=== PATIENT | female | born 1940 | race Caucasian/White ===

== ENCOUNTER 2018-10-09 12:11 | Outpatient (CLI) | payer MEDICARE ==
--- NOTE | 2018-10-09 14:52 | XRAY Report ---
Reason: SPINAL STENOSIS,LUMBAR REGION WITHOUT NEUROGENIC C Procedure Date: 10/09/2018 Accession Number: [id number] / [id number] Procedure: XR - Chest 2 View X-Ray CPT Code: 49418 FULL RESULT: EXAM: CHEST RADIOGRAPHY EXAM DATE: 10/09/2018 12:17 PM. CLINICAL HISTORY: Dyspnea on exertion. COMPARISON: LUMBAR SPINE 2 VIEW 10/09/2018 12:17 PM. TECHNIQUE: 2 views. FINDINGS: Lungs/Pleura: No focal opacities evident. No pleural effusion. No pneumothorax. Normal volumes. Mediastinum: Heart size is upper limits of normal. Mediastinal and hilar contours are within expected limits. Atherosclerotic deposition is noted of the aorta. Other: There is a 9 x 11 cm upwardly convex soft tissue density of the anterior right diaphragm consistent with focal diaphragmatic eventration versus diaphragmatic hernia, likely containing liver. Mild anterior wedging compression of the T7 vertebral body and likely chronic osteoporotic compression. IMPRESSION: 1. Right anterior hemidiaphragmatic broad-based eventration versus hernia. 2. No infiltrates. RADIA
--- NOTE | 2018-10-09 15:11 | XRAY Report ---
Reason: SPINAL STENOSIS,LUMBAR REGION WITHOUT NEUROGENIC C Procedure Date: 10/09/2018 Accession Number: [id number] / [id number] Procedure: XR - Lumbar Spine 2 View CPT Code: FULL RESULT: EXAM: LUMBOSACRAL SPINE RADIOGRAPHY EXAM DATE: 10/09/2018 12:36 PM. CLINICAL HISTORY: Spinal stenosis, lumbar region without neurogenic C. COMPARISONS: None. TECHNIQUE: 3 views. FINDINGS: Alignment: There is roughly 15 degrees of convex left scoliosis apex at L2-L3. There is 7 mm of grade 1 anterolisthesis of L4 on L5 and 6 mm of anterolisthesis of L5 on S1. There is mild straightening of the normal lumbar lordosis. Bones: Five [id number] lumbar vertebral bodies are present. Large anterior and lateral bridging osteophytes are noted spanning L3-S1. Disks: Degenerative disk space narrowing is noted at L3-L4, L4-L5, L5-S1. Facets: Degenerative facet arthrosis is noted below the L3 level. Sacroiliac Joints: Unremarkable. Soft Tissues: Normal. The visualized bowel gas pattern is normal. IMPRESSION: Multilevel degenerative changes as described. No appreciable acute fracture. RADIA
== END 2018-10-09 12:12 | disposition home or self-care (01) ==
LOC: DI 12:11
PROVIDERS: ATTEND Internal Medicine
DX: R06.00 Dyspnea, unspecified (principal); M51.36 Other intervertebral disc degeneration, lumbar region; M47.9 Spondylosis, unspecified; M51.37 Other intervertebral disc degeneration, lumbosacral region
CPT/HCPCS: 71046; 72100

== ENCOUNTER 2018-11-06 13:28 | Outpatient (CLI) | payer MEDICARE | END 2018-11-06 13:29 | disposition home or self-care (01) | LOC: DI 13:28 | PROVIDERS: ATTEND Internal Medicine | DX: R60.0 Localized edema (principal); I51.7 Cardiomegaly | CPT/HCPCS: 93306 ==

== ENCOUNTER 2019-03-14 09:37 | Emergency (ER) | payer MEDICARE ==
[2019-03-14 10:32] LABS: BASOPHILS % (AUTO) 0.6 %; EOSINOPHILS % (AUTO) 0.2 %; HGB - HEMOGLOBIN 12.1 g/dL (12.0-16.0); LYMPHOCYTES % (AUTO) 15.2 %; MEAN CORPUSCULAR HEMOGLOBIN 30.3 pg (27.0-31.0); MEAN CORPUSCULAR HGB CONC 33.9 g/dL (32.0-36.0); MEAN CORPUSCULAR VOLUME 89.3 fL (81.0-99.0); MEAN PLATELET VOLUME 8.9 fL (7.9-10.8); MONOCYTES # (AUTO) 0.5 10^3/uL (0.0-1.0); NEUTROPHILS # (AUTO) 4.9 10^3/uL (1.5-6.6); NEUTROPHILS % (AUTO) 76.4 %; PLT - PLATELET COUNT 214 10^3/uL (130-450); RED CELL DISTRIBUTION WIDTH 14.2 % (12.0-15.0); WHITE BLOOD COUNT 6.4 x10^3/uL (4.8-10.8)
[2019-03-14 10:36] LABS: ALBUMIN 3.4 g/dL (3.2-5.5); ALBUMIN/GLOBULIN RATIO 1.2 (1.0-2.2); BILIRUBIN,TOTAL 0.7 mg/dL (0.2-1.0); CALCIUM 10.1 mg/dL (8.5-10.3); CREATININE 1.4 mg/dL (0.4-1.0); TOTAL PROTEIN 6.3 g/dL (6.7-8.2)
--- NOTE | 2019-03-14 11:43 | ED Physician Documentation ---
History of Present Illness - Stated complaint Stated Complaint: LUMP ON FACE - Chief complaint Chief Complaint: General - History obtained from History obtained from: Patient - History of Present Illness Pain level max: 0 Pain level now: 0 - Additonal information Additional information: 79-year-old female with multiple medical complaints today. The first is feet swelling for the past several months. She states she is supposed to be on spironolactone, twice a day. Sometimes she takes it once a day, sometimes twice a day. She does not know why she is supposed to be on this. She denies any diarrhea, nausea or vomiting to me contrary to triage note. She also states that she has a growth on her left face that has been there for several weeks. States that it is rapidly grown over the past few weeks. Was supposed to see dermatology, but no appointments available until May. She states she was supposed to go see her doctor today, but he "called out sick". She states that the office staff told her to come to the emergency department instead for her appointment. 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 Derm: Skin cancer surgery - Present Medications Home Medications: Ambulatory Orders Medication Instructions Recorded Confirmed Aspirin [Aspir 81] 81 DAILY 08/28/14 08/28/14 Atorvastatin [Lipitor] 20 DAILY 08/28/14 08/28/14 Losartan [Cozaar] 100 DAILY 08/28/14 08/28/14 Prazosin [Minipress] 1 DAILY 08/28/14 08/28/14 Spironolactone 25 DAILY 08/28/14 08/28/14 [id number] CD [Cardizem Cd] 180 DAILY 08/28/14 08/28/14 Cephalexin [Keflex] 500 mg PO Q6H #28 capsule 03/14/19 Furosemide [Lasix] 20 mg PO DAILY #7 tablet 03/14/19 - Allergies Allergies/Adverse Reactions: Allergies Allergy/AdvReac Type Severity Reaction Status Date / Time lisinopril AdvReac Respiratory Verified 03/14/19 09:51 PD ED PE NORMAL - Vitals Vital signs reviewed: Yes - General General: Alert and oriented X 3, No acute distress - HEENT HEENT: Moist mucous membranes, Other (Small raised area to the left cheek, approximately 1 cm in circumference. There is a dark area at the head of this.) - Neck Neck: Supple, no meningeal sign - Cardiac Cardiac: RRR, Strong equal pulses - Respiratory Respiratory: No respiratory distress, Clear bilaterally - Abdomen Abdomen: Soft, Non tender, Non distended - Derm Derm: Warm and dry - Extremities Extremities: Other (1+ B pitting pedal edema) - Neuro Neuro: Alert and oriented X 3 - Psych Psych: Normal mood, Normal affect Results - Vitals Vitals: Vital Signs - 24 hr 03/14/19 03/14/19 03/14/19 09:45 11:16 11:57 Temperature 36.4 C L Heart Rate 60 61 61 Respiratory 16 18 17 Rate Blood Pressure 105/51 L 107/87 H 122/80 O2 Saturation 95 99 96 Oxygen O2 Source Room air - Labs Labs: Laboratory Tests 03/14/19 03/14/19 10:15 10:15 WBC 6.4 RBC 4.00 L Hgb 12.1 Hct 35.7 L MCV 89.3 MCH 30.3 MCHC 33.9 RDW 14.2 Plt Count 214 MPV 8.9 Neut # (Auto) 4.9 Lymph # (Auto) 1.0 L [place] # (Auto) 0.5 Eos # (Auto) 0.0 Baso # (Auto) 0.0 Absolute Nucleated RBC 0.00 Nucleated RBC % 0.0 Sodium 133 L Potassium 4.3 Chloride 99 L Carbon Dioxide 22 Anion Gap 12.0 BUN 21 H Creatinine 1.4 H Estimated GFR (MDRD) 36 L Glucose 95 Calcium 10.1 Total Bilirubin 0.7 AST 21 ALT 17 Alkaline Phosphatase 75 Total Protein 6.3 L Albumin 3.4 Globulin 2.9 Albumin/Globulin Ratio 1.2 Lipase 35 PD MEDICAL DECISION MAKING - ED course Complexity details: considered differential, d/w patient ED course: Patient with symptoms of unclear etiology. Concern for possible basal cell or squamous cell carcinoma. There may be a secondary infection as well. Will place on Keflex. Will place on a short course of Lasix. We will have her continue her spironolactone at 25 mg twice a day. Discussed the case with [facility] but they do not take her insurance. Recommend she call [facility] for an urgent dermatology referral and follow-up closely with her PCP for further evaluation of her skin. Patient counseled regarding signs and symptoms for which I believe and urgent re-evaluation would be necessary. Patient with good understanding of and agreement to plan and is comfortable going home at this time This document was made in part using voice recognition software. While efforts are made to proofread this document, sound alike and grammatical errors may occur. Departure - Departure Disposition: Home, Self Care Clinical Impression: Peripheral edema Cellulitis Qualifiers: Site of cellulitis: unspecified site Qualified Code(s): L03.90 - Cellulitis, unspecified Condition: Good Instructions: ED Cellulitis Facial Follow-Up: Ari Pappas MD [Provider Admit Priv/Credential] - Within 1 week Prescriptions: Cephalexin [Keflex] 500 mg PO Q6H #28 capsule Furosemide [Lasix] 20 mg PO DAILY #7 tablet Comments: Take all antibiotics until gone. Return if you worsen. You can start the Lasix as well to see if this helps her swelling. [place] I think it is important that you get seen urgently within the next week or two by dermatology as this could be cancerous on your face. You can call [facility] directly to see who they can refer you to. Return if you worsen Discharge Date/Time: 03/14/19 11:58
[2019-03-14 11:58] VITALS: BP 122/80
== END 2019-03-14 11:58 | disposition home or self-care (01) ==
LOC: ED 09:37
DX: R60.0 Localized edema (principal); L03.211 Cellulitis of face; I10 Essential (primary) hypertension
CPT/HCPCS: 36415; 80053; 83690; 85025; 99283; 99284

== ENCOUNTER 2019-09-19 08:00 | Outpatient (CLI) | payer MEDICARE | END 2019-09-19 23:59 | disposition home or self-care (01) | LOC: LAB.R 08:00 | PROVIDERS: ATTEND Physician Assistant | DX: R19.7 Diarrhea, unspecified (principal) | CPT/HCPCS: 81599; 87045; 87046; 87177; 87209; 87329; 87493 ==

== ENCOUNTER 2020-04-25 17:06 | Outpatient (CLI) | payer MEDICARE | END 2020-04-25 17:07 | disposition critical access hospital (66) | LOC: EMS 17:06 | PROVIDERS: ATTEND Surgery | DX: R10.9 Unspecified abdominal pain (principal) | CPT/HCPCS: A0425; A0427 ==

== ENCOUNTER 2020-04-25 18:00 | Emergency (ER) | payer MEDICARE ==
[2020-04-25 18:56] LABS: BASOPHILS % (AUTO) 0.3 %; EOSINOPHILS % (AUTO) 0.1 %; LYMPHOCYTES # (AUTO) 0.6 10^3/uL (1.5-3.5); LYMPHOCYTES % (AUTO) 8.4 %; MEAN CORPUSCULAR HEMOGLOBIN 29.7 pg (27.0-31.0); MEAN CORPUSCULAR HGB CONC 33.9 g/dL (32.0-36.0); MEAN CORPUSCULAR VOLUME 87.9 fL (81.0-99.0); MEAN PLATELET VOLUME 8.8 fL (7.9-10.8); MONOCYTES # (AUTO) 0.3 10^3/uL (0.0-1.0); MONOCYTES % (AUTO) 4.4 %; NEUTROPHILS # (AUTO) 6.1 10^3/uL (1.5-6.6); NEUTROPHILS % (AUTO) 86.5 %; PLT - PLATELET COUNT 210 10^3/uL (130-450); RED BLOOD COUNT 4.37 10^6/uL (4.20-5.40)
[2020-04-25 19:10] LABS: ALBUMIN 3.8 g/dL (3.2-5.5); ALBUMIN/GLOBULIN RATIO 1.3 (1.0-2.2); BILIRUBIN,TOTAL 0.6 mg/dL (0.2-1.0); CALCIUM 9.9 mg/dL (8.5-10.3); CREATININE 1.4 mg/dL (0.4-1.0); TOTAL PROTEIN 6.7 g/dL (6.7-8.2)
[2020-04-25 19:53] LABS: BILIRUBIN,URINE NEGATIVE (NEGATIVE); GLUCOSE, URINE (UA) NEGATIVE (NEGATIVE); KETONES,URINE (UA) NEGATIVE (NEGATIVE); LEUKOCYTE ESTERASE, URINE TRACE (NEGATIVE); NITRITE,URINE NEGATIVE (NEGATIVE); OCCULT BLOOD,URINE TRACE-LYSE (NEGATIVE); PROTEIN,URINE 100 mg/dL (NEGATIVE); UROBILINOGEN,URINE 0.2 (NORMAL) E.U./dL (NORMAL)
[2020-04-25 19:55] LABS: CLARITY,URINE HAZY (CLEAR)
[2020-04-25 20:08] LABS: BACTERIA,URINE Many /HPF (None Seen); RBC,URINE 0-5 /HPF (0-5); SQUAMOUS EPITHELIAL CELL,UR FEW Squamous (<= Few); WBC CLUMPS,URINE PRESENT
--- NOTE | 2020-04-25 21:28 | ED Physician Documentation ---
History of Present Illness - Stated complaint Stated Complaint: R FLANK PX - Chief complaint Chief Complaint: Abd Pain - History obtained from History obtained from: Patient - Additonal information Additional information: Patient is an 80-year-old female brought in with a chief complaint of dysuria and now right-sided flank pain that started about 3 days ago and is progressively been getting worse. She denies fevers denies syncopal episodes denies any lower extremity weakness.Reports that her primary care provider is Dr. Brantley. Review of Systems Constitutional: reports: Reviewed and negative Eyes: reports: Reviewed and negative Ears: reports: Reviewed and negative Nose: reports: Reviewed and negative Throat: reports: Reviewed and negative Cardiac: reports: Reviewed and negative Respiratory: reports: Reviewed and negative GI: reports: Reviewed and negative : reports: Dysuria, Other (Right-sided flank pain) Skin: reports: Reviewed and negative Musculoskeletal: reports: Reviewed and negative Neurologic: reports: Reviewed and negative Psychiatric: reports: Reviewed and negative Endocrine: reports: Reviewed and negative Immunocompromised: reports: Reviewed and negative PD PAST MEDICAL HISTORY - Past Medical History Cardiovascular: Hypertension Respiratory: Shortness of breath Endocrine/Autoimmune: None GI: None : None HEENT: Chronic vision loss Psych: Claustrophobia Musculoskeletal: None Derm: None - Past Surgical History 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 Derm: Skin cancer surgery - Present Medications Home Medications: Ambulatory Orders Medication Instructions Recorded Confirmed Aspirin [Aspir 81] 81 DAILY 08/28/14 08/28/14 Atorvastatin [Lipitor] 20 DAILY 08/28/14 08/28/14 Losartan [Cozaar] 100 DAILY 08/28/14 08/28/14 Prazosin [Minipress] 1 DAILY 08/28/14 08/28/14 Spironolactone 25 DAILY 08/28/14 08/28/14 [id number] CD [Cardizem Cd] 180 DAILY 08/28/14 08/28/14 Cephalexin [Keflex] 500 mg PO Q6H #28 capsule 03/14/19 Furosemide [Lasix] 20 mg PO DAILY #7 tablet 03/14/19 Cephalexin [Keflex] 500 mg PO QID #40 capsule 04/26/20 Hydrocodone/Acetaminophen [Pilgrim 1 each PO Q6HR PRN #10 tablet 04/26/20 5-325 Tablet] Ondansetron Odt [Zofran Odt] 4 mg TL Q6H PRN #10 tablet 04/26/20 - Allergies Allergies/Adverse Reactions: Allergies Allergy/AdvReac Type Severity Reaction Status Date / Time lisinopril AdvReac Respiratory Verified 04/25/20 18:28 PD ED PE NORMAL - Vitals Vital signs reviewed: Yes - General General: Alert and oriented X 3, No acute distress, Well developed/nourished - HEENT HEENT: PERRL, Moist mucous membranes - Neck Neck: Supple, no meningeal sign - Cardiac Cardiac: RRR, No murmur, Strong equal pulses - Respiratory Respiratory: No respiratory distress, Clear bilaterally - Abdomen Abdomen: Normal bowel sounds, Soft, Non tender, Non distended, No organomegaly, Other - Back Back: No spinal TTP, Other (Positive for right-sided CVA tenderness to palpation) - Derm Derm: Normal color, Warm and dry, No rash - Extremities Extremities: No deformity, No tenderness to palpate, Normal ROM s pain, No edema, No calf tenderness / cord - Neuro Neuro: Alert and oriented X 3, 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, No motor deficit, No sensory deficit, Normal speech - Psych Psych: Normal mood, Normal affect Results - Vitals Vitals: Vital Signs - 24 hr 04/25/20 04/25/20 04/25/20 18:24 19:15 21:07 Temperature 97.2 C H Heart Rate 86 78 72 Respiratory 16 18 19 Rate Blood Pressure 163/112 H 159/99 H 155/88 H O2 Saturation 23 L 100 96 04/25/20 04/26/20 04/26/20 22:30 00:30 01:40 Temperature Heart Rate 65 64 69 Respiratory 18 Rate Blood Pressure 145/99 H 151/95 H 178/91 H O2 Saturation 99 99 98 Oxygen O2 Source Room air - Labs Labs: Laboratory Tests 04/25/20 04/25/20 04/25/20 18:50 18:50 19:47 WBC 7.0 RBC 4.37 Hgb 13.0 Hct 38.4 MCV 87.9 MCH 29.7 MCHC 33.9 RDW 14.0 Plt Count 210 MPV 8.8 Neut # (Auto) 6.1 Lymph # (Auto) 0.6 L [place] # (Auto) 0.3 Eos # (Auto) 0.0 Baso # (Auto) 0.0 Absolute Nucleated RBC 0.00 Nucleated RBC % 0.0 Sodium 129 L Potassium 3.9 Chloride 94 L Carbon Dioxide 21 Anion Gap 14.0 H BUN 26 H Creatinine 1.4 H Estimated GFR (MDRD) 36 L Glucose 116 H Calcium 9.9 Total Bilirubin 0.6 AST 21 ALT 16 Alkaline Phosphatase 92 Total Protein 6.7 Albumin 3.8 Globulin 2.9 Albumin/Globulin Ratio 1.3 Lipase 32 Urine Color LIGHT YELLOW Urine Clarity HAZY Urine pH 6.0 Ur Specific [place] 1.010 Urine Protein 100 H Urine Glucose (UA) NEGATIVE Urine Ketones NEGATIVE Urine Occult Blood TRACE-LYSE Urine Nitrite NEGATIVE Urine Bilirubin NEGATIVE Urine Urobilinogen 0.2 (NORMAL) Ur Leukocyte Esterase TRACE H Urine RBC 0-5 Urine WBC 11-25 H Urine WBC Clumps PRESENT Ur Squamous Epith Cells FEW Squamous Urine Bacteria Many H Ur Microscopic Review INDICATED Urine Culture Comments INDICATED PD MEDICAL DECISION MAKING - ED course Complexity details: reviewed results, re-evaluated patient, considered differential, d/w patient ED course: Patient is an 80-year-old female presents with dysuria for 3 days and now right- sided flank pain. Her urinalysis is consistent with a urinary tract infection she was given a dose of IV Rocephin and given a prescription for Keflex 500 mg to be taken for times a day for 10 days. Did get a CT scan of the abdomen and pelvis without contrast which showed cholelithiasis as well as a 3 cm ovoid lesion in the left pelvis nonspecific. I had a lengthy discussion with the patient about this and that she should have close follow-up next week which she has agreed to do. Her CT scan also showed severe spinal stenosis at L3-L4 and L4-L5 for which I encouraged her to follow-up with her primary care provider Dr. Devaughn Brantley on Tuesday which she is agreed to do so. Her pain is controlled here in the emergency department she is received IV antibiotics and a prescription for oral antibiotics and has close follow-up. Departure - Departure Disposition: 01 Home, Self Care Clinical Impression: Pyelonephritis, Hyponatremia, Spinal stenosis at L4-L5 level, Adnexal mass Condition: Stable Instructions: Pyelonephritis Dc Follow-Up: Devaughn Brantley MD [Primary Care Provider] - Prescriptions: Hydrocodone/Acetaminophen [Pil[place]im 5-325 Tablet] 1 each PO Q6HR PRN #10 tablet PRN Reason: Pain Cephalexin [Keflex] 500 mg PO QID #40 capsule Ondansetron Odt [Zofran Odt] 4 mg TL Q6H PRN #10 tablet PRN Reason: Nausea / Vomiting Comments: Take antibiotics as directed. Your tests indicate that she had pyelonephritis which is a kidney infection. You also are being provided a prescription for pain medicine as well as medicine for nausea. Your CAT scan shows that you have gallstones as well as a 3 cm lesion in your left pelvis that you need to have followed up with next week with Dr. Brantley or your primary care provider. Return for worsening pain fevers or any concerns. Discharge Date/Time: 04/26/20 01:53
[2020-04-25] MEDS ORDERED: cefTRIAXone 1 GM VIAL IVP STA (21:29)
[2020-04-25] MEDS ORDERED: SODIUM CHLORIDE 0.9% 1,000 ML IV STA (21:37)
[2020-04-26] MEDS ORDERED: fentaNYL 100 MCG/2 ML VIAL IVP STA (00:23)
[2020-04-26] MEDS ORDERED: HYDROcod/ACETAM 5/325 MG TABLET PO STA (01:35)
[2020-04-26 03:08] VITALS: BP 178/91
--- NOTE | 2020-04-26 10:26 | CT Report ---
PROCEDURE: Abdomen/Pelvis WO INDICATIONS: right flank pain TECHNIQUE: Noncontrast 5 mm thick sections acquired from the diaphragms to the symphysis. 5 mm coronal and sagi ttal reformats were then performed. For radiation dose reduction, the following was used: automated exposure control, adjustment of mA and/or kV according to patient size. COMPARISON: None. FINDINGS: Image quality: Excellent. ABDOMEN: Lung bases: 6 mm noncalcified nodules can be seen involving both lower lobes. Heart size is normal. At least moderate coronary artery calcification can be seen. Solid organs: Liver and spleen are normal in size. The liver demonstrates a lobulated appearance. Po tential gallstones. Gallbladder wall does not appear thickened. The common bile duct measures 11 mm. Pancreas is normal in contours. No adrenal nodules. The left kidney is atrophic. Lobulated kidneys are seen. There is an exophytic simple cyst seen along the posterior aspect of the left kidney superiorly that measures 1.3 cm and 14 Hounsfield units. Peritoneum and bowel: Unenhanced bowel loops demonstrate normal wall thickness and caliber. No free fluid or air. A normal appendix is incidentally noted. Nodes and vessels: No retroperitoneal or mesenteric adenopathy by size criteria. Aorta and inferior vena cava are normal in caliber. Prominent atherosclerotic calcification can be seen, including dens e calcification of the proximal left renal artery. Bilateral common iliac artery stents are seen. Miscellaneous: No ventral hernias. Mild body wall edema is seen. PELVIS: Genitourinary: Bladder wall thickness is normal. This patient is status post hysterectomy. No adnex al masses can be seen. Miscellaneous: No inguinal hernias or adenopathy. A superficial nodule seen involving the right lab ia majora, as on series 3 image 138, measuring 1.5 cm. There is a 3 cm low-density focus seen involvi ng the left adnexal region adjacent to the left iliac bifurcation. Bones: No suspicious bony lesions. No vertebral body compression fractures. Degenerative changes a re seen throughout, which are most prominent involving the lower lumbar spine. Mild to moderate levoc onvex lumbar scoliosis is seen. Mild grade 1 anterolisthesis is seen involving L4-L5 and L5-S1. No as sociated pars defects are seen. IMPRESSION: No findings of stones or hydronephrosis can be seen. Potential gallstones are seen. Mildly dilated common bile duct. Prominent atherosclerotic calcification can be seen, including advanced calcification involving the l eft proximal renal artery. Bilateral common iliac artery stents are seen. The left kidney is atrophic. 1.5 cm hyperdense nodule involving the right labia majora. Please correlate with physical examination findings. 6 mm pulmonary nodules are seen involving both lower lobes. 3 cm low-density ovoid nodule involving the left adnexal region, which is seen immediately adjacent t o the left iliac bifurcation. This may be related to an ovarian nodule. Differential diagnosis includ es an aneurysm, however. If clinically appropriate, please consider a dedicated pelvic ultrasound for further evaluation. Mild anasarca. Incidental note is made of: Lobulated liver, likely reflective of cirrhosis Levoconvex scoliosis Focal lower lumbar spine degenerative change Normal appendix Hysterectomy Note: No significant discrepancy from the preliminary report. Reviewed by: Everardo Szymanski MD on 04/26/2020 9:24 AM LUZ Approved by: Everardo Szymanski MD on 04/26/2020 9:24 AM LUZ Station ID: [id number]
== END 2020-04-26 01:53 | disposition home or self-care (01) ==
LOC: EDUNIT# → ED 18:00
DX: N12 Tubulo-interstitial nephritis, not specified as acute or chronic (principal); E87.1 Hypo-osmolality and hyponatremia; M48.061 Spinal stenosis, lumbar region without neurogenic claudication; M47.816 Spondylosis without myelopathy or radiculopathy, lumbar region; K80.20 Calculus of gallbladder without cholecystitis without obstruction; R19.00 Intra-abdominal and pelvic swelling, mass and lump, unspecified site; I10 Essential (primary) hypertension; Z79.82 Long term (current) use of aspirin
CPT/HCPCS: 36415; 74176; 80053; 81001; 83690; 85025; 87077; 87086; 87181; 96374; 96375; 99284; A9270; 81003

== ENCOUNTER 2020-11-05 | Outpatient (CLI) | payer MEDICARE | END 2020-11-05 08:53 | disposition critical access hospital (66) | CPT/HCPCS: A0425; A0429 ==

== ENCOUNTER 2020-11-05 09:30 | Inpatient (IN) | payer MEDICARE ==
--- NOTE | 2020-11-05 09:52 | ED Physician Documentation ---
PD HPI DYSPNEA - Stated complaint Stated Complaint: SOA - Chief complaint Chief Complaint: Resp - History obtained from History obtained from: Patient, EMS - History of Present Illness Timing - onset: How many months ago (Progressive dyspnea associated with orthopnea and not leg swelling over the last month, worse the last several days to a week. Mild cough. Feels better once up and around in the mornings. Seen yesterday at [facility] Timing - onset during: Exertion, Other (worse lying and with activity) Timing - duration: Months (1) Timing - details: Gradual onset Inciting event(s): No: Out of meds, URI (some cough the past week though) Improved by: Rest, Sitting up Worsened by: Exertion, Laying flat Associated symptoms: Cough, Bilateral edema. No: Fever, Anxiety Similar symptoms before: Has not had sx before Recently seen: Clinic (yesterday at [facility], with labs, and had Rx Lasix and Spironolactone.) Review of Systems Constitutional: denies: Fever, Chills, Myalgias Nose: denies: Rhinorrhea / runny nose, Congestion Throat: denies: Sore throat Cardiac: reports: Pedal edema. denies: Chest pain / pressure, Palpitations, Calf pain Respiratory: reports: Dyspnea (particularly the past month, progressive), Cough (nonproductive, fci), Wheezing. denies: Hemoptysis GI: reports: Diarrhea (loose to watery, 1-3 times daily, without blood. Has had it for months.). denies: Abdominal Pain, Nausea, Vomiting, Constipation, Bloody / black stool Skin: denies: Rash, Lesions Neurologic: reports: Generalized weakness. 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 Derm: Skin cancer surgery - Present Medications Home Medications: Ambulatory Orders Medication Instructions Recorded Confirmed Atorvastatin [Lipitor] 20 DAILY 08/28/14 08/28/14 Spironolactone 50 mg DAILY 08/28/14 08/28/14 Furosemide [Lasix] 20 mg PO DAILY #7 tablet 03/14/19 - Allergies Allergies/Adverse Reactions: Allergies Allergy/AdvReac Type Severity Reaction Status Date / Time lisinopril AdvReac Respiratory Verified 11/05/20 09:47 - Living Situation Living Situation: reports: Alone Living Arrangement: reports: At home - Social History Does the pt smoke?: Yes Smoking Status: Current every day smoker Does the pt drink ETOH?: Yes Does the pt have substance abuse?: No PD ED PE NORMAL - Vitals Vital signs reviewed: Yes (sats 89% on RA) - General General: Alert and oriented X 3, Well developed/nourished - Neck Neck: Supple, no meningeal sign, Other (JVD noted at 45 degrees. ) - Cardiac Cardiac: RRR, No murmur - Respiratory Respiratory: No respiratory distress. No: Clear bilaterally (some wheezing component diffusely. Fine crackles at both lower lung moreno. Decreased left base. ) - Abdomen Abdomen: Soft, Non tender - Female Female : Deferred - Rectal Rectal: Deferred - Back Back: No CVA TTP - Derm Derm: Normal color, Warm and dry - Extremities Extremities: No tenderness to palpate, Normal ROM s pain, No calf tenderness / cord, Other (2+ edema in both lower legs up to the knees. ) - Psych Psych: Normal mood, Normal affect Results - Vitals Vitals: Vital Signs - 24 hr 11/05/20 11/05/20 09:30 10:15 Temperature 36.7 C Heart Rate 87 74 Respiratory 20 18 Rate Blood Pressure 133/102 H O2 Saturation 89 L Oxygen O2 Source Nasal cannula Oxygen Flow Rate 2 - Labs Labs: Laboratory Tests 11/05/20 11/05/20 11/05/20 10:12 10:12 10:12 WBC 7.6 RBC 4.12 L Hgb 12.0 Hct 36.9 L MCV 89.6 MCH 29.1 MCHC 32.5 RDW 14.7 Plt Count 207 MPV 9.8 Neut # (Auto) 6.4 Lymph # (Auto) 0.8 L [place] # (Auto) 0.3 Eos # (Auto) 0.0 Baso # (Auto) 0.0 Absolute Nucleated RBC 0.00 Nucleated RBC % 0.0 Sodium 134 L Potassium 4.1 Chloride 100 L Carbon Dioxide 23 Anion Gap 11.0 BUN 19 Creatinine 1.7 H Estimated GFR (MDRD) 29 L Glucose 115 H Calcium 8.8 Magnesium 1.6 L Total Bilirubin 0.9 AST 20 ALT 18 Alkaline Phosphatase 84 Troponin I High Sens 39.2 H* B-Natriuretic Peptide Total Protein 6.0 L Albumin 3.1 L Globulin 2.9 Albumin/Globulin Ratio 1.1 Lipase 35 TSH 11/05/20 11/05/20 10:12 10:12 WBC RBC Hgb Hct MCV MCH MCHC RDW Plt Count MPV Neut # (Auto) Lymph # (Auto) [place] # (Auto) Eos # (Auto) Baso # (Auto) Absolute Nucleated RBC Nucleated RBC % Sodium Potassium Chloride Carbon Dioxide Anion Gap BUN Creatinine Estimated GFR (MDRD) Glucose Calcium Magnesium Total Bilirubin AST ALT Alkaline Phosphatase Troponin I High Sens B-Natriuretic Peptide 3977 H Total Protein Albumin Globulin Albumin/Globulin Ratio Lipase TSH 4.32 - Rads (name of study) chest xray Radiology: Prelim report reviewed (Left effusion; interstitial edema c/w CHF. ), See rad report PD MEDICAL DECISION MAKING - ED course Complexity details: reviewed results, re-evaluated patient, considered differential (seems likely CHF, but could have some element of COPD with smoking history and some wheezing. Mostly with the edema, crackles, orthopnea. ), d/w patient Departure - Departure Disposition: 66 [facility] DC/Xfer Clinical Impression: Leg edema, Hypoxia Dyspnea Qualifiers: Dyspnea type: orthopnea Qualified Code(s): R06.01 - Orthopnea CHF (congestive heart failure) Qualifiers: Heart failure type: unspecified Heart failure chronicity: acute Qualified Code(s): I50.9 - Heart failure, unspecified Diarrhea Qualifiers: Diarrhea type: unspecified type Qualified Code(s): R19.7 - Diarrhea, unspecified Condition: Stable Record reviewed to determine appropriate education?: Yes
[2020-11-05] MEDS ORDERED: IPRATROPIUM/ALBUTEROL 3 ML NEB INH STA (09:55)
[2020-11-05] MEDS ORDERED: FUROSEMIDE 20 MG/2 ML VIAL IVP STA ×2 (09:55→11:00)
--- OUTSIDE RECORDS SUMMARY | 2020-11-05 10:11 | EXTERNAL MEDICAL SUMMARY RPT | Continuity of Care Document ---
:1940 Demographics Phone Unavailable Preferred Language Unknown Marital Status Unknown Jainism Affiliation Unknown Race Unknown Ethnic Group Unknown Author Organization [place] Address [address] [place] [address] Phone Social History date description facility [phone]
--- NOTE | 2020-11-05 10:13 | XRAY Report ---
PROCEDURE: Chest 1 View X-Ray INDICATIONS: Chest Pain TECHNIQUE: One view of the chest was acquired. COMPARISON: 10/09/2018 FINDINGS: Surgical changes and devices: Surgical clips are noted in bilateral axilla. Lungs and pleura: There is a small to moderate left pleural effusion with left basilar atelectasis. P ulmonary vascular congestion and mild pulmonary edema is seen. No gross pneumothorax. Mediastinum: Tortuous thoracic aorta with aortic arch calcification is seen. Heart size is enlarged. Bones and chest wall: No suspicious bony lesions. Overlying soft tissues appear unremarkable. IMPRESSION: 1. Small to moderate left-sided pleural effusion with left basilar atelectasis. Pulmonary edema and p ulmonary vascular congestion. No gross pneumothorax. 2. Cardiomegaly. Reviewed by: Sam Downey MD on 11/05/2020 10:12 AM PDT Approved by: Sam Downey MD on 11/05/2020 10:12 AM PDT Station ID: [id number]
[2020-11-05 10:25] LABS: BASOPHILS % (AUTO) 0.4 %; EOSINOPHILS % (AUTO) 0.1 %; HCT - HEMATOCRIT 36.9 % (37.0-47.0); LYMPHOCYTES # (AUTO) 0.8 10^3/uL (1.5-3.5); LYMPHOCYTES % (AUTO) 10.4 %; MEAN CORPUSCULAR HEMOGLOBIN 29.1 pg (27.0-31.0); MEAN CORPUSCULAR HGB CONC 32.5 g/dL (32.0-36.0); MEAN CORPUSCULAR VOLUME 89.6 fL (81.0-99.0); MEAN PLATELET VOLUME 9.8 fL (7.9-10.8); MONOCYTES # (AUTO) 0.3 10^3/uL (0.0-1.0); MONOCYTES % (AUTO) 4.5 %; NEUTROPHILS # (AUTO) 6.4 10^3/uL (1.5-6.6); NEUTROPHILS % (AUTO) 84.3 %; PLT - PLATELET COUNT 207 10^3/uL (130-450); RED BLOOD COUNT 4.12 10^6/uL (4.20-5.40); RED CELL DISTRIBUTION WIDTH 14.7 % (12.0-15.0); WHITE BLOOD COUNT 7.6 x10^3/uL (4.8-10.8)
[2020-11-05 10:36] LABS: ALBUMIN 3.1 g/dL (3.2-5.5); ALBUMIN/GLOBULIN RATIO 1.1 (1.0-2.2); BILIRUBIN,TOTAL 0.9 mg/dL (0.2-1.0); CALCIUM 8.8 mg/dL (8.5-10.3); CREATININE 1.7 mg/dL (0.4-1.0); MAGNESIUM 1.6 mg/dL (1.7-2.8); POTASSIUM 4.1 mmol/L (3.5-5.0)
--- NOTE | 2020-11-05 11:05 | HISTORY & PHYSICAL EXAMINATION ---
Chief Complaint - Chief Complaint Chief Complaint: dyspnea on exertion History of Present Illness - Admitted From Admitted From:: [facility] ED - History Obtained From Records Reviewed: yes History obtained from: patient - History of Present Illness HPI Comment/Other: Patient is an 80-year-old female with medical history significant for hyperten anibal, macular degeneration and an active tobacco user (cigarettes) Scented to the ED via EMS with complaint of dyspnea which is worse on exertion and significant lower extremity edema. Her symptoms have been going on for the past 3 to 4 weeks but got significantly worse over the past week. Yesterday she went to the [facility] where lab work was done. She was prescribed Lasix and spironolactone but has not taken any of it since prescription. Her son-in-law checked on her this morning and called EMS when they noticed she was significantly dyspneic. In the ED she was found to have a 2-3+ lower extremity edema c. her BNP was 3900 and troponin of 39. She has been experiencing a whitish productive cough. She denied any previous occurrence of similar symptoms. She denied any history of cardiac disease. She denies chest pain, abdominal pain, nausea, vomiting, fever or chills. She lives alone but her family lives down the same street from her. She gets around her house using a walker however this has been difficult to do lately. She is fairly independent of activities of daily living. As a result of her clinical presentation and lab findings, she was presented for admission for further treatment. 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 Daughter has migraines Living arrangement: At home Living Situation: Alone Social History Notes: She has been smoking at least 1 pack/day for 61 years. She rarely drinks alcohol. No recreational substance use. - POLST Patient has POLST: No POLST Status: Full Code Meds/Allgy - Home Medications Home Medications: Ambulatory Orders Medication Instructions Recorded Confirmed Atorvastatin [Lipitor] 20 DAILY 08/28/14 08/28/14 Spironolactone 50 mg DAILY 08/28/14 08/28/14 Furosemide [Lasix] 20 mg PO DAILY #7 tablet 03/14/19 Albuterol Sulfate [Proair 1 - 2 puffs PO PRN PRN 11/05/20 Respiclick] Losartan Potassium [Cozaar] 100 mg PO DAILY 11/05/20 - Allergies Allergies/Adverse Reactions: Allergies Allergy/AdvReac Type Severity Reaction Status Date / Time lisinopril AdvReac Respiratory Verified 11/05/20 09:47 Review of Systems - Constitutional Constitutional: reports: Chills. denies: Fatigue, Fever, Weakness - Eyes Eyes: denies: Pain - Ears, Nose & Throat Ears, Nose & Throat: denies: Ear pain, Vertigo, Sore throat - Cardiovascular Cariovascular: reports: Edema, Exertional dyspnea. denies: Irregular heart rate, Palpitations, Chest pain, Lightheadedness, Syncope - Respiratory Respiratory: reports: Cough, Sputum production (white), SOB with exertion. denies: Wheezing, Pleuritic pain - Gastrointestinal Gastrointestinal: denies: Abdominal pain, Abdominal distention, Constipation, Diarrhea, Nausea, Vomiting, Reflux/heartburn - Genitourinary Genitourinary: denies: Dysuria, Frequency, Urgency, Hematuria - Musculoskeletal Musculoskeletal: denies: Muscle pain, Back pain, Muscle aches, Gout, Joint pain - Integumentary Integumentary: denies: Rash, Pruritis, Lesions, Dryness - Neurological Neurological: denies: General weakness, Focal weakness, Headache, Dizziness - Psychiatric Psychiatric: denies: Depression, Anxiety - Endocrine Endocrine: denies: Polyuria, Polydypsia - Hematologic/Lymphatic Hematologic/Lymphatic: denies: Anemia, Bruising, Petechiae Prior Level of Functionality: Patient is normally independent of activities of daily living Exam - Vital Signs Vital Signs: Vital Signs x48h Temp Pulse Resp BP Pulse Ox 11/05/20 10:15 74 18 11/05/20 09:30 36.7 C 87 20 133/102 H 89 L - Physical Exam General Appearance: positive: Alert, Mild distress, Other (Frail) Eyes Bilateral: positive: PERRL, EOMI ENT: positive: No signs of dehydration Neck: positive: No JVD, Trachea midline Respiratory: positive: Chest non-tender, Other (Mild respiratory distress). negative: Wheezes, Rales, Rhonchi Cardiovascular: positive: Regular rate & rhythm, No murmur Abdomen: positive: Non-tender, No organomegaly, Nml bowel sounds, No distention. negative: Guarding, Rebound Back: positive: Nml inspection Skin: positive: Color nml, No rash, Warm, Dry Extremities: positive: Pedal edema (3+) Neurologic/Psychiatric: positive: Oriented x3, Mood/affect nml Conclusion/Plan - Problem List (1) CHF exacerbation Conclusion/Plan: Patient's BMP was 3900. Patient was given Lasix 20 mg IV x1 in the ED. Repeat Lasix 20 mg IV x1 again. Then continue Lasix 20 mg IV twice daily. We will also resume patient's spironolactone. Daily weights, strict I's and O's, fluid restriction to 2 L total, sodium restriction. 2D echocardiogram in process. Patient had a previous 2D echocardiogram on 11/06/18 which showed left ventricular size was normal, mild concentric left ventricular hypertrophy. Overall left ventricular systolic function was normal with an ejection fraction of 55 to 60%. Diastolic function was indeterminate. There was no regional wall motion abnormality. There was no evidence of aortic stenosis. (2) Pleural effusion Conclusion/Plan: [id number] left-sided pleural effusion noted on x-ray. This is likely due to patient's CHF. Actively diuresing the patient. We will contact radiology about possible thoracentesis for diagnostic and therapeutic purposes. (3) Elevated troponin Conclusion/Plan: Likely secondary to CHF exacerbation. Patient is not experiencing any chest pain. However we will trend troponin times tomorrow. (4) Acute renal failure Conclusion/Plan: [place] secondary to CHF exacerbation. Patient's previous creatinine levels have been 1.4. Creatinine today is 1.7. Estimated GFR is 29. Anticipating improvement in renal function with diuresis and improvement in cardiac function. (5) Tobacco abuse Conclusion/Plan: Patient smokes an average of 1 pack/day. She has been smoking for 61 years. Nicotine patch 14 g transdermal daily has been ordered. (6) Hypertension Conclusion/Plan: Patient used to be on losartan but states that this was discontinued. Reason is unknown. Patient would likely be placed on metoprolol prior to discharge considering CHF. Currently on Lasix and spironolactone. - Lab Results Fish Bones: 11/05/20 10:12 11/05/20 10:12 Core Measures - Anticipated LOS I expect patient to be DC'd or transferred within 96 hours.: Yes - DVT/VTE - Prophylaxis VTE/DVT Device ordered at admit?: Yes VTE/DVT Prophylaxis med ordered at admit?: Yes
[2020-11-05 11:10] LABS: B. PARAPERTUSSIS- RESP PCR PAN NOT DETECTED; B. PERTUSSIS- RESP PCR PANEL NOT DETECTED; C. PNEUMONIAE- RESP PCR PANEL NOT DETECTED; CORONAVIRUS 229E-RESP PCR NOT DETECTED; CORONAVIRUS HKU1-RESP PCR NOT DETECTED; CORONAVIRUS NL63-RESP PCR NOT DETECTED; CORONAVIRUS OC43-RESP PCR NOT DETECTED; HUMAN METAPNEUMOVIRUS NOT DETECTED; INFLUENZA A- RESP PCR PANEL NOT DETECTED; INFLUENZA B - RESP PCR PANEL NOT DETECTED; M. PNEUMONIAE- RESP PCR PANEL NOT DETECTED; PARAINFLUENZA VIRUS 1 NOT DETECTED; PARAINFLUENZA VIRUS 2 NOT DETECTED; PARAINFLUENZA VIRUS 3 NOT DETECTED; PARAINFLUENZA VIRUS 4 NOT DETECTED; RHINOVIRUS/ENTEROVIRUS NOT DETECTED; RSV- RESP PCR PANEL NOT DETECTED; SARS-CoV-2 -RESP PCR PANEL NOT DETECTED
--- OUTSIDE RECORDS SUMMARY | 2020-11-05 11:23 | EXTERNAL MEDICAL SUMMARY RPT | Continuity of Care Document ---
:1940 Demographics Phone Unavailable Preferred Language Unknown Marital Status Unknown Oriental Orthodox Affiliation Unknown Race Unknown Ethnic Group Unknown Author Organization [place] Address [address] [phone] Phone Social History date description facility [phone]
[2020-11-05] MEDS: NICOTINE 14 MG PATCH TOP SCH (14:14)
[2020-11-05] MEDS: NYSTATIN POWDER 15 GM TOP SCH ×2 (14:14→21:07)
--- NOTE | 2020-11-05 14:52 | PHARMACY PROGRESS NOTE ---
- Best Possible Medication History Admit Date and Time: 11/05/20 1119 Processed by: Nursing Medication History completed: Yes Patient Interview: Completed Secondary Source(s): Physician records, Pharmacy records, Insurance records (MED REC COMPLETED BY NURSING ) As the person ultimately responsible for medication therapy, providers are able to order a medication from an existing home medication list in [facility] via the "Reconcile Routine" prior to Confirmation of that medication by sales support technician. Such practice is discouraged except when the physician, in their clinical judgment, deems that a medical need exists for a medication without regard to previous use.
[2020-11-05] MEDS: ACETAMINOPHEN 325 MG TABLET PO PRN (19:19)
[2020-11-05] MEDS: SODIUM CHLORIDE FLUSH 0.9% 10 ML SYRINGE IVP SCH (19:52)
[2020-11-05] MEDS: guaiFENesin/CODEINE 5 ML UDC PO PRN (22:34)
[2020-11-06] MEDS: ACETAMINOPHEN 325 MG TABLET PO PRN ×2 (00:03→15:33)
[2020-11-06] MEDS: SODIUM CHLORIDE FLUSH 0.9% 10 ML SYRINGE IVP SCH ×4 (00:05→23:49)
[2020-11-06 05:18] LABS: BASOPHILS % (AUTO) 0.4 %; HCT - HEMATOCRIT 36.8 % (37.0-47.0); HGB - HEMOGLOBIN 11.9 g/dL (12.0-16.0); LYMPHOCYTES % (AUTO) 11.7 %; MEAN CORPUSCULAR HGB CONC 32.3 g/dL (32.0-36.0); MEAN CORPUSCULAR VOLUME 89.8 fL (81.0-99.0); MEAN PLATELET VOLUME 9.9 fL (7.9-10.8); MONOCYTES # (AUTO) 0.5 10^3/uL (0.0-1.0); MONOCYTES % (AUTO) 5.5 %; NEUTROPHILS # (AUTO) 7.3 10^3/uL (1.5-6.6); NEUTROPHILS % (AUTO) 82.2 %; PLT - PLATELET COUNT 188 10^3/uL (130-450); RED CELL DISTRIBUTION WIDTH 14.6 % (12.0-15.0); WHITE BLOOD COUNT 8.9 x10^3/uL (4.8-10.8)
[2020-11-06 05:21] LABS: CALCIUM 8.3 mg/dL (8.5-10.3); CREATININE 1.7 mg/dL (0.4-1.0); INR 1.1 (0.8-1.2); POTASSIUM 3.5 mmol/L (3.5-5.0); PT - PROTHROMBIN TIME 12.3 secs (9.9-12.6)
[2020-11-06] MEDS: guaiFENesin/CODEINE 5 ML UDC PO PRN (05:30)
[2020-11-06] MEDS: FUROSEMIDE 20 MG/2 ML VIAL IVP SCH ×2 (05:31→13:55)
[2020-11-06] MEDS: SODIUM CHLORIDE FLUSH 0.9% 10 ML SYRINGE IVP PRN (05:45)
--- NOTE | 2020-11-06 07:35 | PROVIDER PROGRESS NOTE ---
Assessment/Plan - Problem List (1) CHF exacerbation Assessment/Plan: There was significant improvement in patient's lower extremity edema. Continue Lasix 20 mg IV twice daily. Spironolactone 50 mg p.o. daily. 2D echocardiogram done yesterday 11/05/20 showed normal left ventricular size. Moderate concentric left ventricular hypertrophy. Overall left ventricular systolic function is mild to moderately globally impaired with an ejection fraction of 40 to 45%. Impaired relaxation consistent with grade 1 diastolic dysfunction. No regional wall motion abnormality was seen. Left ventricular systolic function was reduced compared to previous echo. There was mild right ventricular enlargement. There was severe increase in left atrial volume index. No evidence of aortic stenosis. There was a large sized left pleural effusion noted. (2) Pleural effusion Assessment/Plan: Large left pleural effusion. Patient's INR this morning was 1.1. Thoracentesis ordered for this morning for therapeutic and diagnostic purposes. We will await results. (3) Elevated troponin Assessment/Plan: Troponin trend was 39.2 > 49.4 > 69.7. This is likely related to CHF exacerbation. Patient does not have any chest pain. We will continue to monitor (4) Acute renal failure Assessment/Plan: Likely secondary to CHF exacerbation. No change from yesterday Patient's previous creatinine levels have been 1.4. Creatinine today is 1.7. Estimated GFR is 29. Anticipating improvement in renal function with diuresis and improvement in cardiac function. (5) Tobacco abuse Assessment/Plan: Patient smokes an average of 1 pack/day. She has been smoking for 61 years. Nicotine patch 14 g transdermal daily has been ordered. (6) Hypertension Assessment/Plan: Patient used to be on losartan but states that this was discontinued. Reason is unknown. Patient would likely be placed on metoprolol prior to discharge considering CHF. Currently on Lasix and spironolactone. - Current Meds Current Meds: Current Medications Generic Name Dose Route Start Last Admin Trade Name Freq PRN Reason Stop Dose Admin Acetaminophen 650 mg 11/05/20 10:49 11/06/20 00:03 Acetaminophen 325 Mg Tablet PO 650 mg Q4HR PRN Administration Pain 1 to 4 Furosemide 20 mg 11/06/20 06:00 11/06/20 05:31 Furosemide 20 Mg/2 Ml Vial IVP 20 mg BIDDIURETIC KEESHA Administration Guaifenesin/Codeine Phosphate 5 ml 11/05/20 22:20 04/08/21 05:30 Guaifenesin/Codeine 5 Ml Udc PO 5 ml Q6HR PRN Administration Cough Nicotine 1 patch 11/05/20 13:00 11/05/20 14:14 Nicotine 14 Mg Patch TOP 1 patch DAILY KEESHA Administration Nystatin 1 applic 11/05/20 13:00 11/05/20 21:07 Nystatin Powder 15 Gm TOP 1 applic BID KEESHA Administration Sodium Chloride 10 ml 11/05/20 10:49 11/06/20 05:45 Sodium Chloride Flush 0.9% 10 Ml Syringe IVP 10 ml PRN PRN Administration NEEDED PER PROVIDER ORDERS Sodium Chloride 10 ml 11/05/20 17:00 11/06/20 00:05 Sodium Chloride Flush 0.9% 10 Ml Syringe IVP 10 ml 0100,0900,1700 KEESHA Administration - Lab Result Fish Bone Diagrams: 11/06/20 04:45 11/06/20 04:45 - Additional Planning My Orders: My Active Orders 11/05/20 10:49 Activity Orders [RC] Q2HR IO [RC] IOSHIFT Initiate Bowel Care Protocol [RC] .protocol Initiate Line Care Protocol [RC] QSHIFT Initiate Personal Care Protoco [RC] .protocol Telemetry- [RC] Q4HR Vital Signs [RC] Q4H Acetaminophen [Tylenol] 650 mg PO Q4HR PRN Sodium Chloride Flush 0.9% [Normal Saline Flush 0.9%] 10 ml IVP PRN PRN Code Status [OTHERS] Routine Condition of Patient [OTHERS] Routine DVT Prophylaxis [OTHERS] Routine 11/05/20 10:57 SCDs [RC] QSHIFT 11/05/20 10:58 Daily Weight [RC] 0600 11/05/20 11:01 Echo [Echo Transthoracic Complete] [ECHO] Routine 11/05/20 Lunch Cardiac Diet [DIET] 11/05/20 13:00 Nicotine 14 mg Patch [Nicoderm] 1 patch TOP DAILY Nystatin [Nystop] 1 applic TOP BID 11/05/20 13:01 Fluid Restriction [RC] ONCE 11/05/20 17:00 Sodium Chloride Flush 0.9% [Normal Saline Flush 0.9%] 10 ml IVP 0100,0900,1700 11/06/20 05:00 CELL COUNT, BF [BF] DAILYLAB 11/06/20 05:24 Oxygen [Oxygen Therapy] [RC] .PRN 11/06/20 06:00 FUROSEMIDE INJ 20mg VIAL [LASIX INJ 20mg VIAL] 20 mg IVP BIDDIURETIC 11/06/20 08:00 Thoracentesis Puncture [US] Routine 11/06/20 09:00 CUL,BODY FLUID(AEROBIC) [RM] DAILY MISC TEST QUEST REFRIG [REFLAB] Timed MISC TEST QUEST REFRIG [REFLAB] Timed MISC TEST QUEST REFRIG [REFLAB] Timed MISC TEST QUEST REFRIG [REFLAB] Timed Miscellaneous Laboratory Order [LAB] ONCE Heparin [Heparin Sodium (Porcine)] 5,000 unit SUBQ BID Spironolactone [Aldactone] 50 mg PO DAILY 11/07/20 05:00 BMP - BASIC METABOLIC PANEL [CHEM] DAILYLAB CBC - COMP BLD CT W/AUTO DIFF [HEME] DAILYLAB 11/08/20 05:00 BMP - BASIC METABOLIC PANEL [CHEM] DAILYLAB CBC - COMP BLD CT W/AUTO DIFF [HEME] DAILYLAB 11/09/20 05:00 BMP - BASIC METABOLIC PANEL [CHEM] DAILYLAB CBC - COMP BLD CT W/AUTO DIFF [HEME] DAILYLAB 11/10/20 05:00 BMP - BASIC METABOLIC PANEL [CHEM] DAILYLAB CBC - COMP BLD CT W/AUTO DIFF [HEME] DAILYLAB Subjective - Subjective Patient Reports: Other (Resting comfortably in bed. She reports significant improvement in her breathing. However her cough persist. Her lower extremity edema has significantly decreased. She denies any other complaints.) Objective Vital Signs: Vital Signs - 24 hr 11/05/20 11/05/20 11/05/20 09:30 10:15 11:15 Temperature 36.7 C Heart Rate 87 74 78 Heart Rate [ Brachial] Respiratory 20 18 18 Rate Blood Pressure 133/102 H 140/100 H Blood Pressure [Left Brachial artery] O2 Saturation 89 L 92 11/05/20 11/05/20 11/05/20 11:45 13:18 15:30 Temperature 36.6 C 36.7 C Heart Rate Heart Rate [ 73 91 Brachial] Respiratory 20 24 24 Rate Blood Pressure Blood Pressure 130/59 L 137/92 H [Left Brachial artery] O2 Saturation 92 93 91 L 11/05/20 11/05/20 11/06/20 16:31 20:00 00:00 Temperature 36.8 C 36.6 C 36.4 C L Heart Rate Heart Rate [ 87 Brachial] Respiratory 24 22 Rate Blood Pressure Blood Pressure 136/98 H 137/92 H [Left Brachial artery] O2 Saturation 96 93 97 11/06/20 03:45 Temperature 36.5 C Heart Rate Heart Rate [ 71 Brachial] Respiratory 21 Rate Blood Pressure Blood Pressure 113/72 [Left Brachial artery] O2 Saturation 93 Oxygen O2 Source Nasal cannula Oxygen Flow Rate 2 I&O (Last 24 Hrs): Intake and Output Totals x24h 11/04/20 11/05/20 11/06/20 23:59 23:59 23:59 Intake Total 840 Output Total 1250 400 Balance -410 -400 General: Alert, Oriented x3, Cooperative, Mild distress HEENT: PERRLA, EOMI Neck: Supple, No JVD Neuro: Alert, Non Focal, Oriented Times 3 Cardiovascular: Regular rate, No murmurs Respiratory: Chest non-tender, Other (Mild respiratory distress. Coarse breath sounds No wheezing rhonchi or crackles) Abdomen: Normal bowel sounds, Soft, No tenderness, No masses Extremities: Other (+1 lower extremity edema) - Results Results: Laboratory Results WBC 8.9 x10^3/uL (4.8-10.8) 11/06/20 04:45 RBC 4.10 10^6/uL (4.20-5.40) L 11/06/20 04:45 Hgb 11.9 g/dL (12.0-16.0) L 11/06/20 04:45 Hct 36.8 % (37.0-47.0) L 11/06/20 04:45 MCV 89.8 fL (81.0-99.0) 11/06/20 04:45 MCH 29.0 pg (27.0-31.0) 11/06/20 04:45 MCHC 32.3 g/dL (32.0-36.0) 11/06/20 04:45 RDW 14.6 % (12.0-15.0) 11/06/20 04:45 Plt Count 188 10^3/uL (130-450) 11/06/20 04:45 MPV 9.9 fL (7.9-10.8) 11/06/20 04:45 Neut # (Auto) 7.3 10^3/uL (1.5-6.6) H 11/06/20 04:45 Lymph # (Auto) 1.0 10^3/uL (1.5-3.5) L 11/06/20 04:45 [place] # (Auto) 0.5 10^3/uL (0.0-1.0) 11/06/20 04:45 Eos # (Auto) 0.0 10^3/uL (0.0-0.7) 11/06/20 04:45 Baso # (Auto) 0.0 10^3/uL (0.0-0.1) 11/06/20 04:45 Absolute Nucleated RBC 0.00 x10^3/uL 11/06/20 04:45 Nucleated RBC % 0.0 /100WBC 11/06/20 04:45 PT 12.3 secs (9.9-12.6) 11/06/20 04:45 INR 1.1 (0.8-1.2) 11/06/20 04:45 Sodium 134 mmol/L (135-145) L 11/06/20 04:45 Potassium 3.5 mmol/L (3.5-5.0) 11/06/20 04:45 Chloride 98 mmol/L (101-111) L 11/06/20 04:45 Carbon Dioxide 26 mmol/L (21-32) 11/06/20 04:45 Anion Gap 10.0 (6-13) 11/06/20 04:45 BUN 23 mg/dL (6-20) H 11/06/20 04:45 Creatinine 1.7 mg/dL (0.4-1.0) H 11/06/20 04:45 Estimated GFR (MDRD) 29 (>89) L 11/06/20 04:45 Glucose 100 mg/dL (70-100) 11/06/20 04:45 Calcium 8.3 mg/dL (8.5-10.3) L 11/06/20 04:45 Magnesium 1.6 mg/dL (1.7-2.8) L 11/05/20 10:12 Total Bilirubin 0.9 mg/dL (0.2-1.0) 11/05/20 10:12 AST 20 IU/L (10-42) 11/05/20 10:12 ALT 18 IU/L (10-60) 11/05/20 10:12 Alkaline Phosphatase 84 IU/L (42-121) 11/05/20 10:12 Troponin I High Sens 69.7 ng/L (2.3-14.8) H* 11/05/20 21:49 B-Natriuretic Peptide 3977 pg/mL (5-100) H 11/05/20 10:12 Total Protein 6.0 g/dL (6.7-8.2) L 11/05/20 10:12 Albumin 3.1 g/dL (3.2-5.5) L 11/05/20 10:12 Globulin 2.9 g/dL (2.1-4.2) 11/05/20 10:12 Albumin/Globulin Ratio 1.1 (1.0-2.2) 11/05/20 10:12 Lipase 35 U/L (22-51) 11/05/20 10:12 TSH 4.32 uIU/mL (0.34-5.60) 11/05/20 10:12 Nasal Adenovirus (PCR) NOT DETECTED 11/05/20 10:07 Nasal B. parapertussis DNA (PCR) NOT DETECTED 11/05/20 10:07 Nasal Coronavir 229E PCR NOT DETECTED 11/05/20 10:07 Nasal Coronavir HKU1 PCR NOT DETECTED 11/05/20 10:07 Nasal Coronavir NL63 PCR NOT DETECTED 11/05/20 10:07 Nasal Coronavir OC43 PCR NOT DETECTED 11/05/20 10:07 Nasal Enterovir/Rhinovir PCR NOT DETECTED 11/05/20 10:07 Nasal Influenza B PCR NOT DETECTED 11/05/20 10:07 Nasal Influenza A PCR NOT DETECTED 11/05/20 10:07 Nasal Parainfluen 1 PCR NOT DETECTED 11/05/20 10:07 Nasal Parainfluen 2 PCR NOT DETECTED 11/05/20 10:07 Nasal Parainfluen 3 PCR NOT DETECTED 11/05/20 10:07 Nasal Parainfluen 4 PCR NOT DETECTED 11/05/20 10:07 Nasal RSV (PCR) NOT DETECTED 11/05/20 10:07 Nasal B.pertussis DNA PCR NOT DETECTED 11/05/20 10:07 Nasal C.pneumoniae (PCR) NOT DETECTED 04/07/21 10:07 Roberto Human Metapneumo PCR NOT DETECTED 11/05/20 10:07 Nasal M.pneumoniae (PCR) NOT DETECTED 11/05/20 10:07 Nasal SARS-CoV-2 (PCR) NOT DETECTED 11/05/20 10:07 - Procedures Procedures: Procedures CATARAC PHACOEMULS/ASPIR (11/28/14) INSERT LENS AT CATAR EXT (11/28/14) ABX Reporting Has patient been on IV antibiotics over the past 48 hours?: No
[2020-11-06] MEDS: HEPARIN 5,000 UNIT/ML VIAL SUBQ SCH ×2 (07:56→20:30)
[2020-11-06] MEDS: NICOTINE 14 MG PATCH TOP SCH (08:30)
[2020-11-06] MEDS: NYSTATIN POWDER 15 GM TOP SCH ×2 (08:31→20:31)
[2020-11-06] MEDS ORDERED: ENOXAPARIN 40 MG/0.4 ML SYRINGE SUBQ SCH (09:00)
[2020-11-06] MEDS ORDERED: SPIRONOLACTONE 25 MG TABLET PO SCH (09:00)
[2020-11-06 12:27] LABS: BF CLARITY CLEAR; BF COLOR YELLOW; BF SOURCE PLEURAL; CC,BF RBC < 3000 /mm^3; CC,BF WBC 169 /mm^3
--- NOTE | 2020-11-06 12:32 | XRAY Report ---
PROCEDURE: Post Thoracentesis 1V CXR INDICATIONS: DYSPNEA/ PLUERAL EFFUSION S/P THORACENTESIS TECHNIQUE: One view of the chest was acquired. COMPARISON: Chest radiograph dated 11/05/2020 FINDINGS: Surgical changes and devices: Multiple surgical clips noted in the bilateral axilla.. Lungs and pleura: Persistent right pleural effusion, stable. Previously seen left moderate pleural ef fusion has decreased significantly in size. There is a small residual left pleural effusion seen. Dif fuse interstitial prominence as before. Patchy bibasilar opacities. Curvilinear lucency noted on the initial post thoracentesis image with suggestion of lung markings extending peripherally from this faby cency. Repeat imaging demonstrates persistent of this curvilinear lucent line but it appears more pro nounced with additional similar appearing lucency noted on the right. There is lung markings extendin g beyond/peripheral to these lucencies towards the pleural surface. This is likely related to skinfol d artifact. Otherwise, no pneumothorax visualized. Mediastinum: Mediastinal contours appear stable. Heart size is enlarged. Bones and chest wall: No suspicious bony lesions. Overlying soft tissues appear unremarkable. IMPRESSION: 1. Status post left thoracentesis with significant interval decrease in size of now small left pleura l effusion. Presumed skinfold artifact as detailed above. Otherwise, no substantial pneumothorax visu alized. 2. Cardiomegaly with stable appearance of diffuse interstitial prominence. This may be related to con current mild pulmonary edema/CHF versus infectious/inflammatory process. No focal consolidations. Reviewed by: Chris Ching MD on 11/06/2020 12:31 PM PDT Approved by: Chris Ching MD on 11/06/2020 12:31 PM PDT Station ID: [id number]
[2020-11-06 13:24] LABS: LYMPHOCYTES %,BODY FLUID 22 %; MACROPHAGES %,BODY FLUID 31 %; NEUTROPHILS %, BF 48 %
--- NOTE | 2020-11-06 14:53 | Ultrasound Report ---
PROCEDURE: Thoracentesis Puncture INDICATIONS: large pleural effusion. Therapeutic and diagnostic TECHNIQUE: The indications, alternatives, benefits, risks, and complications of the procedure were explained to the patient. Written informed consent was obtained and placed in the chart. The chest was examined sonographically, and an appropriate site was chosen for thoracentesis. The skin was prepared and millie ped in the usual sterile fashion, and 1% lidocaine was infiltrated from the skin down through the ple ural surface. A 19-gauge catheter-covered needle was then introduced into the pleural space, the cat heter was advanced and the needle was withdrawn, and thereafter pleural fluid was aspirated. The cat heter was then removed and a dressing was applied. COMPARISON: None. FINDINGS: Access site: Left hemithorax. Needle: One-Step centesis catheter with introducer needle. Fluid volume and description: 970 mL of straw-colored pleural effusion Fluid sent for diagnostic testing: Samples were sent for diagnostic testing per treating clinician's orders. Medications: 1% lidocaine for local anaesthesia. Complications: None; post-procedural chest radiograph is pending to assess for pneumothorax. IMPRESSION: Successful ultrasound-guided thoracentesis. Reviewed by: Chris Ching MD on 11/06/2020 2:52 PM PDT Approved by: Chris Ching MD on 11/06/2020 2:52 PM PDT Station ID: [id number]
[2020-11-06] MEDS: ZOLPIDEM 5 MG TABLET PO PRN (20:31)
[2020-11-07 05:17] LABS: BASOPHILS # (AUTO) 0.1 10^3/uL (0.0-0.1); BASOPHILS % (AUTO) 0.6 %; EOSINOPHILS % (AUTO) 0.2 %; HCT - HEMATOCRIT 37.9 % (37.0-47.0); HGB - HEMOGLOBIN 12.5 g/dL (12.0-16.0); LYMPHOCYTES % (AUTO) 12.3 %; MEAN CORPUSCULAR HEMOGLOBIN 29.1 pg (27.0-31.0); MEAN CORPUSCULAR VOLUME 88.3 fL (81.0-99.0); MEAN PLATELET VOLUME 9.4 fL (7.9-10.8); MONOCYTES # (AUTO) 0.5 10^3/uL (0.0-1.0); NEUTROPHILS # (AUTO) 6.5 10^3/uL (1.5-6.6); NEUTROPHILS % (AUTO) 80.4 %; PLT - PLATELET COUNT 191 10^3/uL (130-450); RED BLOOD COUNT 4.29 10^6/uL (4.20-5.40); RED CELL DISTRIBUTION WIDTH 14.6 % (12.0-15.0); WHITE BLOOD COUNT 8.1 x10^3/uL (4.8-10.8)
[2020-11-07 05:29] LABS: CALCIUM 8.6 mg/dL (8.5-10.3); CREATININE 1.9 mg/dL (0.4-1.0); POTASSIUM 3.4 mmol/L (3.5-5.0)
[2020-11-07] MEDS: FUROSEMIDE 20 MG/2 ML VIAL IVP SCH (06:20)
[2020-11-07] MEDS ORDERED: POTASSIUM CHLORIDE 20 MEQ TABLET PO ONE (07:31)
--- NOTE | 2020-11-07 07:53 | DISCHARGE SUMMARY ---
Discharge Summary Condition at Discharge: Stable - ALLERGIES Allergies/Adverse Reactions: Allergies Allergy/AdvReac Type Severity Reaction Status Date / Time lisinopril AdvReac Respiratory Verified 11/05/20 09:47 - MEDICATIONS Home Medications: Ambulatory Orders Medication Instructions Recorded Confirmed Atorvastatin [Lipitor] 20 DAILY 08/28/14 08/28/14 Spironolactone 50 mg DAILY 08/28/14 11/05/20 Furosemide [Lasix] 20 mg PO DAILY #7 tablet 03/14/19 11/05/20 Cholecalciferol [Vitamin D3] 3 cap PO DAILY 11/05/20 11/05/20 Vit A/Vit C/Vit E/Zinc/Copper 1 each PO 11/05/20 [Preservision Areds Softgel] - LABS Result Diagrams: 11/07/20 04:50 11/07/20 04:50
--- NOTE | 2020-11-07 07:55 | PROVIDER PROGRESS NOTE ---
Assessment/Plan - Problem List (1) CHF exacerbation Assessment/Plan: Patient's lower extremity edema continues to improve. Today it is trace. Continue Lasix 20 mg IV daily. Spironolactone was held today due to increased creatinine of 1.9. Metoprolol succinate 25 mg p.o. daily ordered. Hold if systolic blood pressure is less than 100. 2D echocardiogram done yesterday 11/05/20 showed normal left ventricular size. Moderate concentric left ventricular hypertrophy. Overall left ventricular systolic function is mild to moderately globally impaired with an ejection fraction of 40 to 45%. Impaired relaxation consistent with grade 1 diastolic dysfunction. No regional wall motion abnormality was seen. Left ventricular systolic function was reduced compared to previous echo. There was mild right ventricular enlargement. There was severe increase in left atrial volume index. No evidence of aortic stenosis. There was a large sized left pleural effusion noted. Patient underwent thoracentesis yesterday with about 1 L of fluid extracted on the left. Repeat chest x-ray this morning showed trace bilateral fluid collection Will reevaluate for potential discharge tomorrow 11/08/20 (2) Pleural effusion Assessment/Plan: 1 L of clear fluid extracted on the left side during thoracentesis yesterday. Continue Lasix 20 mg IV daily. (3) Elevated troponin Assessment/Plan: Troponin trend was 39.2 > 49.4 > 69.7 > 58.5 This is likely related to CHF exacerbation. Patient does not have any chest pain. We will continue to monitor (4) Acute renal failure Assessment/Plan: Initially thought to be secondary to CHF exacerbation. However patient may have been diuresed agressively. We will hold patient's spironolactone but continue Lasix 20 mg IV daily. Patient's creatinine today was 1.9 with a GFR of 25 (5) Tobacco abuse Assessment/Plan: Patient smokes an average of 1 pack/day. She has been smoking for 61 years. Nicotine patch 14 g transdermal daily has been ordered. (6) Hypertension Assessment/Plan: Patient used to be on losartan but states that this was discontinued. Reason is unknown. Patient would likely be placed on metoprolol prior to discharge considering CHF. Currently on Lasix and spironolactone. - Current Meds Current Meds: Current Medications Generic Name Dose Route Start Last Admin Trade Name Freq PRN Reason Stop Dose Admin Acetaminophen 650 mg 11/05/20 10:49 11/06/20 15:33 Acetaminophen 325 Mg Tablet PO 650 mg Q4HR PRN Administration Pain 1 to 4 Furosemide 20 mg 11/06/20 06:00 11/07/20 06:20 Furosemide 20 Mg/2 Ml Vial IVP 20 mg BIDDIURETIC KEESHA Administration Guaifenesin/Codeine Phosphate 5 ml 11/05/20 22:20 11/06/20 05:30 Guaifenesin/Codeine 5 Ml Udc PO 5 ml Q6HR PRN Administration Cough Heparin Sodium (Porcine) 5,000 unit 11/06/20 09:00 11/06/20 20:30 Heparin 5,000 Unit/Ml Vial SUBQ 5,000 unit BID KEESHA Administration Nicotine 1 patch 11/05/20 13:00 11/06/20 08:30 Nicotine 14 Mg Patch TOP 1 patch DAILY KEESHA Administration Nystatin 1 applic 11/05/20 13:00 11/06/20 20:31 Nystatin Powder 15 Gm TOP 1 applic BID KEESHA Administration Sodium Chloride 10 ml 11/05/20 10:49 11/06/20 05:45 Sodium Chloride Flush 0.9% 10 Ml Syringe IVP 10 ml PRN PRN Administration NEEDED PER PROVIDER ORDERS Sodium Chloride 10 ml 11/05/20 17:00 11/06/20 23:49 Sodium Chloride Flush 0.9% 10 Ml Syringe IVP 10 ml 0100,0900,1700 KEESHA Administration Zolpidem Tartrate 5 mg 11/06/20 20:11 11/06/20 20:31 Zolpidem 5 Mg Tablet PO 5 mg QPM PRN Administration Insomnia - Lab Result Fish Bone Diagrams: 11/07/20 04:50 11/07/20 04:50 - Additional Planning My Orders: My Active Orders 11/06/20 09:00 Miscellaneous Laboratory Order [LAB] ONCE Heparin [Heparin Sodium (Porcine)] 5,000 unit SUBQ BID 11/06/20 12:01 CUL,BODY FLUID(AEROBIC) [RM] DAILY MISC TEST QUEST REFRIG [REFLAB] Timed MISC TEST QUEST REFRIG [REFLAB] Timed MISC TEST QUEST REFRIG [REFLAB] Timed MISC TEST QUEST REFRIG [REFLAB] Timed 11/07/20 BNP - B-NATRIURETIC PEPTIDE [IAI] Stat 11/07/20 07:46 Chest 1 View X-Ray [XR] Stat 11/07/20 07:47 EKG - Electrocardiogram [RC] .ONCE TROPONIN I HIGH SENSITIVITY [IAI] Stat 11/08/20 05:00 BMP - BASIC METABOLIC PANEL [CHEM] DAILYLAB CBC - COMP BLD CT W/AUTO DIFF [HEME] DAILYLAB 11/09/20 05:00 BMP - BASIC METABOLIC PANEL [CHEM] DAILYLAB CBC - COMP BLD CT W/AUTO DIFF [HEME] DAILYLAB 11/10/20 05:00 BMP - BASIC METABOLIC PANEL [CHEM] DAILYLAB CBC - COMP BLD CT W/AUTO DIFF [HEME] DAILYLAB Subjective - Subjective Patient Reports: Other (Patient reports feeling dyspneic. She has some conversational dyspnea. She is still coughing up some white phlegm but it is significantly reduced. She denies chest pain, abd pain, nausea or vomiting.) Objective Vital Signs: Vital Signs - 24 hr 11/06/20 11/06/20 11/06/20 07:56 11:39 15:38 Temperature 36.5 C 36.5 C 36.6 C Heart Rate [ 62 75 70 Brachial] Respiratory 20 20 20 Rate Blood Pressure 128/86 H 119/86 H 101/69 [Left Brachial artery] O2 Saturation 95 95 98 11/06/20 11/06/20 11/07/20 20:18 23:25 01:00 Temperature 36.6 C 36.4 C L Heart Rate [ 78 73 Brachial] Respiratory 24 18 Rate Blood Pressure 123/84 H 120/75 [Left Brachial artery] O2 Saturation 98 98 86 L 11/07/20 11/07/20 11/07/20 01:05 04:40 07:36 Temperature 36.6 C 36.5 C Heart Rate [ 74 64 Brachial] Respiratory 16 22 Rate Blood Pressure 142/94 H 135/87 H [Left Brachial artery] O2 Saturation 98 96 94 Oxygen O2 Source Nasal cannula Oxygen Flow Rate 2 I&O (Last 24 Hrs): Intake and Output Totals x24h 11/05/20 11/06/20 11/07/20 23:59 23:59 23:59 Intake Total 840 420 Output Total 1250 1150 700 Balance -410 -070 -700 General: Alert, Oriented x3, Mild distress (Respiratory) HEENT: PERRLA, EOMI Neck: Supple, No JVD Neuro: Alert, Non Focal, Oriented Times 3 Cardiovascular: Regular rate, Normal S1, Normal S2 Respiratory: Chest non-tender, Other (Mild respiratory distress. Coarse breath sounds No wheezing rhonchi or crackles) Abdomen: Normal bowel sounds, Soft, No tenderness, No masses Extremities: Other (Trace edema) Skin: No rashes, No breakdown - Results Results: Laboratory Results WBC 8.1 x10^3/uL (4.8-10.8) 11/07/20 04:50 RBC 4.29 10^6/uL (4.20-5.40) 11/07/20 04:50 Hgb 12.5 g/dL (12.0-16.0) 11/07/20 04:50 Hct 37.9 % (37.0-47.0) 11/07/20 04:50 MCV 88.3 fL (81.0-99.0) 11/07/20 04:50 MCH 29.1 pg (27.0-31.0) 11/07/20 04:50 MCHC 33.0 g/dL (32.0-36.0) 11/07/20 04:50 RDW 14.6 % (12.0-15.0) 11/07/20 04:50 Plt Count 191 10^3/uL (130-450) 11/07/20 04:50 MPV 9.4 fL (7.9-10.8) 11/07/20 04:50 Neut # (Auto) 6.5 10^3/uL (1.5-6.6) 11/07/20 04:50 Lymph # (Auto) 1.0 10^3/uL (1.5-3.5) L 11/07/20 04:50 [place] # (Auto) 0.5 10^3/uL (0.0-1.0) 11/07/20 04:50 Eos # (Auto) 0.0 10^3/uL (0.0-0.7) 11/07/20 04:50 Baso # (Auto) 0.1 10^3/uL (0.0-0.1) 11/07/20 04:50 Absolute Nucleated RBC 0.00 x10^3/uL 11/07/20 04:50 Nucleated RBC % 0.0 /100WBC 11/07/20 04:50 PT 12.3 secs (9.9-12.6) 11/06/20 04:45 INR 1.1 (0.8-1.2) 11/06/20 04:45 Sodium 137 mmol/L (135-145) 11/07/20 04:50 Potassium 3.4 mmol/L (3.5-5.0) L 11/07/20 04:50 Chloride 98 mmol/L (101-111) L 11/07/20 04:50 Carbon Dioxide 29 mmol/L (21-32) 11/07/20 04:50 Anion Gap 10.0 (6-13) 11/07/20 04:50 BUN 30 mg/dL (6-20) H 11/07/20 04:50 Creatinine 1.9 mg/dL (0.4-1.0) H 11/07/20 04:50 Estimated GFR (MDRD) 25 (>89) L 11/07/20 04:50 Glucose 104 mg/dL (70-100) H 11/07/20 04:50 Calcium 8.6 mg/dL (8.5-10.3) 11/07/20 04:50 Magnesium 1.6 mg/dL (1.7-2.8) L 11/05/20 10:12 Total Bilirubin 0.9 mg/dL (0.2-1.0) 11/05/20 10:12 AST 20 IU/L (10-42) 11/05/20 10:12 ALT 18 IU/L (10-60) 11/05/20 10:12 Alkaline Phosphatase 84 IU/L (42-121) 11/05/20 10:12 Troponin I High Sens 69.7 ng/L (2.3-14.8) H* 11/05/20 21:49 B-Natriuretic Peptide 3977 pg/mL (5-100) H 11/05/20 10:12 Total Protein 6.0 g/dL (6.7-8.2) L 11/05/20 10:12 Albumin 3.1 g/dL (3.2-5.5) L 11/05/20 10:12 Globulin 2.9 g/dL (2.1-4.2) 11/05/20 10:12 Albumin/Globulin Ratio 1.1 (1.0-2.2) 11/05/20 10:12 Lipase 35 U/L (22-51) 11/05/20 10:12 TSH 4.32 uIU/mL (0.34-5.60) 11/05/20 10:12 Fluid Source PLEURAL 11/06/20 12:01 Fluid Color YELLOW 11/06/20 12:01 Fluid Clarity CLEAR 11/06/20 12:01 Fluid WBC 169 /mm^3 11/06/20 12:01 Fluid RBC < 3000 /mm^3 11/06/20 12:01 Fluid Neutrophils % 48 % 11/06/20 12:01 Fluid Lymphocytes % 22 % 11/06/20 12:01 Fluid Macrophages % 31 % 11/06/20 12:01 Nasal Adenovirus (PCR) NOT DETECTED 11/05/20 10:07 Nasal B. parapertussis DNA (PCR) NOT DETECTED 11/05/20 10:07 Nasal Coronavir 229E PCR NOT DETECTED 11/05/20 10:07 Nasal Coronavir HKU1 PCR NOT DETECTED 11/05/20 10:07 Nasal Coronavir NL63 PCR NOT DETECTED 11/05/20 10:07 Nasal Coronavir OC43 PCR NOT DETECTED 11/05/20 10:07 Nasal Enterovir/Rhinovir PCR NOT DETECTED 11/05/20 10:07 Nasal Influenza B PCR NOT DETECTED 11/05/20 10:07 Nasal Influenza A PCR NOT DETECTED 11/05/20 10:07 Nasal Parainfluen 1 PCR NOT DETECTED 11/05/20 10:07 Nasal Parainfluen 2 PCR NOT DETECTED 11/05/20 10:07 Nasal Parainfluen 3 PCR NOT DETECTED 11/05/20 10:07 Nasal Parainfluen 4 PCR NOT DETECTED 11/05/20 10:07 Nasal RSV (PCR) NOT DETECTED 11/05/20 10:07 Nasal B.pertussis DNA PCR NOT DETECTED 11/05/20 10:07 Nasal C.pneumoniae (PCR) NOT DETECTED 11/05/20 10:07 Roberto Human Metapneumo PCR NOT DETECTED 11/05/20 10:07 Nasal M.pneumoniae (PCR) NOT DETECTED 11/05/20 10:07 Nasal SARS-CoV-2 (PCR) NOT DETECTED 11/05/20 10:07 - Procedures Procedures: Procedures CATARAC PHACOEMULS/ASPIR (11/28/14) INSERT LENS AT CATAR EXT (11/28/14) ABX Reporting Has patient been on IV antibiotics over the past 48 hours?: No
--- NOTE | 2020-11-07 08:08 | XRAY Report ---
PROCEDURE: Chest 1 View X-Ray INDICATIONS: dyspnea. s/p thoracentesis TECHNIQUE: One view of the chest was acquired. COMPARISON: 11/05/2020 FINDINGS: Surgical changes and devices: Bilateral axillary surgical clips.. Lungs and pleura: No pneumothorax. Lungs are clear. Trace bilateral pleural fluid collections. Ceph alization of pulmonary vasculature interstitial prominence compatible with CHF stable compared to elizabeth or exam. Mediastinum: Mediastinal contours appear normal. Heart mildly enlarged. Bones and chest wall: No suspicious bony lesions. Overlying soft tissues appear unremarkable. IMPRESSION: No pneumothorax following left-sided thoracentesis. Reviewed by: Carmen Mccabe MD, PhD on 11/07/2020 8:06 AM PDT Approved by: Carmen Mccabe MD, PhD on 11/07/2020 8:06 AM PDT Station ID: [id number]
[2020-11-07] MEDS: HEPARIN 5,000 UNIT/ML VIAL SUBQ SCH ×2 (10:46→20:11)
[2020-11-07] MEDS: NICOTINE 14 MG PATCH TOP SCH (10:46)
[2020-11-07] MEDS: NYSTATIN POWDER 15 GM TOP SCH ×2 (10:48→21:10)
[2020-11-07] MEDS: METOPROLOL SUCCINATE 25 MG TABLET PO SCH (12:30)
[2020-11-07] MEDS: SODIUM CHLORIDE FLUSH 0.9% 10 ML SYRINGE IVP SCH ×3 (12:30→16:41)
[2020-11-07] MEDS: BENZOCAINE/MENTHOL LOZENGE MM PRN ×3 (13:20→22:31)
[2020-11-07] MEDS: IPRATROPIUM/ALBUTEROL 3 ML NEB INH PRN (13:34)
[2020-11-07 19:09] LABS: CALCIUM 8.2 mg/dL (8.5-10.3); CREATININE 1.7 mg/dL (0.4-1.0); MAGNESIUM 1.3 mg/dL (1.7-2.8); PHOSPHORUS 2.9 mg/dL (2.5-4.6); POTASSIUM 3.5 mmol/L (3.5-5.0)
[2020-11-07] MEDS ORDERED: MAGNESIUM SULFATE 2 GRAM 2 GM/50 ML BAG IV ONE (19:46)
--- NOTE | 2020-11-07 19:56 | PROVIDER PROGRESS NOTE ---
Building Maintenance Repairer Note - Building Maintenance Repairer Note Building Maintenance Repairer Note: The Day shift Hospitalist, Dr. Wilder, asked me to review results of labs and EKG that were done and were still pending, after the patient had a 12 beat run of monomorphic V. tach at about 1830 today. The first troponin was 59, the next is 61. Magnesium 1.3 which is probably low from aggressive diuresis (from having 3+ leg edema to trace leg edema now), potassium normal at 3.5. BNP has decreased from 3977 >> 2496 today, with iv bid Lasix EKG (I interpreted) showed NSR, rate 76, PAC's frequent, LVH, PRWP, ST elevations V1-V4 (similar to 0850 EKG done today), T wave inversions in V1-V5 (less deeply inverted than EKG at 0850 today). 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 Both EKG from today have new ST elevations, which were not present on admission EKG of 11/05/20. And the admission troponins did not show acute ND (39>> 49>> 69>> none done on 11/06>> then 59>> 61 today. She had Echo done on 11/05/20 this admission which showed LVEF 40% with global hypokinesis, RV enlarged but with normal LVEF, PA pressure 53 mmHg Her pulmonary edema has decreased and only trace bilateral pleural effusions and mild cephalization on today's CXR, after thoracentesis was done yesterday. BUN/creat have been increasing with diuresis: 23/1.7, 30/1.9, 32/1.7 this evening. Imp: nuno Flood from low Mg in pt with depressed LVEF Hypomagnesemia from iv diuresis Systolic heart failure, acute (new this admission compared to last Echo from 2019). Cor pulmonale by Echo Persistent SOB may be from COPD, as she is a continued cigarette smoker vs coronary ischemic in nature CKD S/P thoracentesis, fluid results are still pending as to transudate or exudate. Tobacco user, on Nicotine patch here. Plan: Replace Mg iv and several doses po. Continue telemetry. Follow several more troponins. If she rules in, then transfer for coronary angio will be planned. If no acute ND, will give a trial of several doses of iv Solumedrol for possible COPD exacerbation, causing the SOB. Repeat limited 2D Echo to recheck for new dick-septal regional wall motion a bnormalities. Stress test this admission, if no acute ND. Decrease diuretics (has been done). CRITICAL CARE TIME SPENT (chart review, EKG inrterpretation and review, medicati on changes): 35 min
[2020-11-07] MEDS: ACETAMINOPHEN 325 MG TABLET PO PRN (20:10)
[2020-11-07] MEDS: ZOLPIDEM 5 MG TABLET PO PRN (21:10)
[2020-11-07] MEDS ORDERED: methylPREDNISolone SUCCINATE 40 MG/ML VIAL IVP SCH (22:00)
[2020-11-08] MEDS: methylPREDNISolone SUCCINATE 40 MG/ML VIAL IVP SCH ×4 (00:10→21:22)
[2020-11-08] MEDS: SODIUM CHLORIDE FLUSH 0.9% 10 ML SYRINGE IVP SCH ×3 (00:10→15:40)
[2020-11-08] MEDS: IPRATROPIUM/ALBUTEROL 3 ML NEB INH PRN (03:58)
[2020-11-08 06:06] LABS: BASOPHILS % (AUTO) 0.1 %; HCT - HEMATOCRIT 40.1 % (37.0-47.0); HGB - HEMOGLOBIN 13.2 g/dL (12.0-16.0); LYMPHOCYTES # (AUTO) 0.4 10^3/uL (1.5-3.5); LYMPHOCYTES % (AUTO) 5.1 %; MEAN CORPUSCULAR HEMOGLOBIN 28.9 pg (27.0-31.0); MEAN CORPUSCULAR HGB CONC 32.9 g/dL (32.0-36.0); MEAN CORPUSCULAR VOLUME 87.7 fL (81.0-99.0); MONOCYTES # (AUTO) 0.1 10^3/uL (0.0-1.0); MONOCYTES % (AUTO) 1.4 %; NEUTROPHILS # (AUTO) 7.1 10^3/uL (1.5-6.6); NEUTROPHILS % (AUTO) 92.9 %; PLT - PLATELET COUNT 192 10^3/uL (130-450); RED BLOOD COUNT 4.57 10^6/uL (4.20-5.40); RED CELL DISTRIBUTION WIDTH 14.6 % (12.0-15.0); WHITE BLOOD COUNT 7.6 x10^3/uL (4.8-10.8)
[2020-11-08 06:20] LABS: CALCIUM 8.6 mg/dL (8.5-10.3); CREATININE 1.6 mg/dL (0.4-1.0)
--- NOTE | 2020-11-08 07:42 | PROVIDER PROGRESS NOTE ---
Assessment/Plan - Problem List (1) CHF exacerbation Assessment/Plan: Continue Lasix 20 mg IV daily. Continue to hold spironolactone. Creatinine today 1.6 On Metroprolol succinate 25 mg p.o. daily 2D echocardiogram done yesterday 11/05/20 showed normal left ventricular size. Moderate concentric left ventricular hypertrophy. Overall left ventricular systolic function is mild to moderately globally impaired with an ejection fraction of 40 to 45%. Impaired relaxation consistent with grade 1 diastolic dy sfunction. No regional wall motion abnormality was seen. Left ventricular systolic function was reduced compared to previous echo. There was mild right ventricular enlargement. There was severe increase in left atrial volume index. No evidence of aortic stenosis. There was a large sized left pleural effusion noted. Given new onset CHF and EKG changes will do a nuclear stress test on 11/10/20 (2) V-tach Assessment/Plan: Intermittent short runs of monomorphic V. tach Likely due to hypomagnesemia from IV diuresis in patient with depressed left ventricular ejection fraction. Magnesium replaced. Current Mg 1.9. On Magnesium Oxide Nuclear stress test on 11/10/20 (3) Pleural effusion Assessment/Plan: s/p thoracentesis on 11/06/20 with 1L out Continue lasix 20mg IV daily (4) Elevated troponin Assessment/Plan: Troponin trend was 39.2 > 49.4 > 69.7 > 58.5 > 61.1 > 57.3 Nuclear stress test on 11/10/20 (5) Acute renal failure Assessment/Plan: Initially thought to be secondary to CHF exacerbation. However patient may have been diuresed agressively. Continue to hold spironolactone but continue Lasix 20 mg IV daily. Patient's creatinine today was 1.6 with a GFR of 31 (6) Tobacco abuse Assessment/Plan: Patient smokes an average of 1 pack/day. She has been smoking for 61 years. Nicotine patch 14 g transdermal daily has been ordered. (7) Hypertension Assessment/Plan: On metoprolol and lasix currently Losartan and spironolactone held - Current Meds Current Meds: Current Medications Generic Name Dose Route Start Last Admin Trade Name Freq PRN Reason Stop Dose Admin Acetaminophen 650 mg 11/05/20 10:49 11/07/20 20:10 Acetaminophen 325 Mg Tablet PO 650 mg Q4HR PRN Administration Pain 1 to 4 Albuterol/Ipratropium 3 ml 11/07/20 11:36 11/08/20 03:58 Ipratropium/Albuterol 3 Ml Neb INH 3 ml Q4HR PRN Administration Wheezing Guaifenesin/Codeine Phosphate 5 ml 11/05/20 22:20 11/06/20 05:30 Guaifenesin/Codeine 5 Ml Udc PO 5 ml Q6HR PRN Administration Cough Heparin Sodium (Porcine) 5,000 unit 11/06/20 09:00 11/07/20 20:11 Heparin 5,000 Unit/Ml Vial SUBQ 5,000 unit BID KEESHA Administration Methylprednisolone 40 mg 11/07/20 23:55 11/08/20 06:25 Methylprednisolone Succinate 40 Mg/Ml Vial IVP 40 mg TID KEESHA Administration Metoprolol Succinate 25 mg 11/07/20 12:00 11/07/20 12:30 Metoprolol Succinate 25 Mg Tablet PO 25 mg DAILY KEESHA Administration Nicotine 1 patch 11/05/20 13:00 11/07/20 10:46 Nicotine 14 Mg Patch TOP 1 patch DAILY KEESHA Administration Nystatin 1 applic 11/05/20 13:00 11/07/20 21:10 Nystatin Powder 15 Gm TOP 1 applic BID KEESHA Administration Sodium Chloride 10 ml 11/05/20 10:49 11/06/20 05:45 Sodium Chloride Flush 0.9% 10 Ml Syringe IVP 10 ml PRN PRN Administration NEEDED PER PROVIDER ORDERS Sodium Chloride 10 ml 11/05/20 17:00 11/08/20 00:10 Sodium Chloride Flush 0.9% 10 Ml Syringe IVP 10 ml 0100,0900,1700 KEESHA Administration Throat Lozenges 1 lozenge 11/07/20 11:20 11/07/20 22:31 Benzocaine/Menthol Lozenge MM 1 lozenge Q2HR PRN Administration Mouth Sore Pain Zolpidem Tartrate 5 mg 11/06/20 20:11 11/07/20 21:10 Zolpidem 5 Mg Tablet PO 5 mg QPM PRN Administration Insomnia - Lab Result Fish Bone Diagrams: 11/08/20 06:00 11/08/20 06:00 - Additional Planning My Orders: My Active Orders 11/07/20 11:20 Benzocaine/Menthol [Cepacol] 1 lozenge MM Q2HR PRN 11/07/20 11:36 Nebulizer/MDI Tx. [RC] .Q4 PRN Resp Teach Nebulizer/MDI [RC] .ONCE Ipratropium/Albuterol [Duoneb] 3 ml INH Q4HR PRN 11/07/20 12:00 Metoprolol Succinate [Toprol Xl] 25 mg PO DAILY 11/08/20 09:00 FUROSEMIDE INJ 20mg VIAL [LASIX INJ 20mg VIAL] 20 mg IVP DAILY 11/09/20 05:00 BMP - BASIC METABOLIC PANEL [CHEM] DAILYLAB CBC - COMP BLD CT W/AUTO DIFF [HEME] DAILYLAB 11/10/20 05:00 BMP - BASIC METABOLIC PANEL [CHEM] DAILYLAB CBC - COMP BLD CT W/AUTO DIFF [HEME] DAILYLAB Subjective - Subjective Patient Reports: Other (Resting comfortably in the bedside chair at time of exam. Appeared to be breathing better. Complained of dry nose due to nasal cannula oxygen. She denied chest pain, abd pain, n/v, f/c. Her lower extremity edema is significantly decreased. Intermittent runs of V. tach last night and this morning.) Objective Vital Signs: Vital Signs - 24 hr 11/07/20 11/07/20 11/07/20 12:00 13:37 15:41 Temperature 36.6 C 37.0 C Heart Rate 68 Heart Rate [ 71 75 Brachial] Respiratory 18 20 20 Rate Blood Pressure [Left Brachial artery] Blood Pressure 189/84 H 120/92 H [Right Brachial artery] O2 Saturation 93 98 11/07/20 11/07/20 11/07/20 18:34 19:15 19:51 Temperature 37.1 C 36.6 C Heart Rate 76 Heart Rate [ 67 70 Brachial] Respiratory 20 18 18 Rate Blood Pressure 102/68 109/70 [Left Brachial artery] Blood Pressure [Right Brachial artery] O2 Saturation 98 94 11/07/20 11/08/20 11/08/20 22:34 04:00 06:00 Temperature 36.5 C 36.7 C Heart Rate 61 Heart Rate [ 65 66 Brachial] Respiratory 18 20 20 Rate Blood Pressure 135/83 H 135/93 H [Left Brachial artery] Blood Pressure [Right Brachial artery] O2 Saturation 98 94 Oxygen O2 Source Nasal cannula Oxygen Flow Rate 2 I&O (Last 24 Hrs): Intake and Output Totals x24h 11/06/20 11/07/20 11/08/20 23:59 23:59 23:59 Intake Total 420 475 Output Total 1150 1050 Balance -730 -575 General: Alert, Oriented x3, No acute distress HEENT: Atraumatic, PERRLA, EOMI Neck: Supple, No JVD Neuro: Alert, Non Focal, Oriented Times 3 Cardiovascular: Regular rate, Other (3/6 murmur) Respiratory: Other (No conversational dyspnea. Coarse breath sounds. No wheezing, rhonchi or crackles) Abdomen: Normal bowel sounds, Soft, No tenderness, No masses Skin: No rashes, No breakdown Comments/Notes: Dusky appearing, bruised - Results Results: Laboratory Results WBC 7.6 x10^3/uL (4.8-10.8) 11/08/20 06:00 RBC 4.57 10^6/uL (4.20-5.40) 11/08/20 06:00 Hgb 13.2 g/dL (12.0-16.0) 11/08/20 06:00 Hct 40.1 % (37.0-47.0) 11/08/20 06:00 MCV 87.7 fL (81.0-99.0) 11/08/20 06:00 MCH 28.9 pg (27.0-31.0) 11/08/20 06:00 MCHC 32.9 g/dL (32.0-36.0) 11/08/20 06:00 RDW 14.6 % (12.0-15.0) 11/08/20 06:00 Plt Count 192 10^3/uL (130-450) 11/08/20 06:00 MPV 10.0 fL (7.9-10.8) 11/08/20 06:00 Neut # (Auto) 7.1 10^3/uL (1.5-6.6) H 11/08/20 06:00 Lymph # (Auto) 0.4 10^3/uL (1.5-3.5) L 11/08/20 06:00 [place] # (Auto) 0.1 10^3/uL (0.0-1.0) 11/08/20 06:00 Eos # (Auto) 0.0 10^3/uL (0.0-0.7) 11/08/20 06:00 Baso # (Auto) 0.0 10^3/uL (0.0-0.1) 11/08/20 06:00 Absolute Nucleated RBC 0.00 x10^3/uL 11/08/20 06:00 Nucleated RBC % 0.0 /100WBC 11/08/20 06:00 PT 12.3 secs (9.9-12.6) 11/06/20 04:45 INR 1.1 (0.8-1.2) 11/06/20 04:45 Sodium 137 mmol/L (135-145) 11/08/20 06:00 Potassium 4.0 mmol/L (3.5-5.0) 11/08/20 06:00 Chloride 98 mmol/L (101-111) L 11/08/20 06:00 Carbon Dioxide 28 mmol/L (21-32) 11/08/20 06:00 Anion Gap 11.0 (6-13) 11/08/20 06:00 BUN 33 mg/dL (6-20) H 11/08/20 06:00 Creatinine 1.6 mg/dL (0.4-1.0) H 11/08/20 06:00 Estimated GFR (MDRD) 31 (>89) L 11/08/20 06:00 Glucose 124 mg/dL (70-100) H 11/08/20 06:00 Calcium 8.6 mg/dL (8.5-10.3) 11/08/20 06:00 Phosphorus 2.9 mg/dL (2.5-4.6) 11/07/20 18:49 Magnesium 1.9 mg/dL (1.7-2.8) 11/08/20 06:00 Total Bilirubin 0.9 mg/dL (0.2-1.0) 11/05/20 10:12 AST 20 IU/L (10-42) 11/05/20 10:12 ALT 18 IU/L (10-60) 11/05/20 10:12 Alkaline Phosphatase 84 IU/L (42-121) 11/05/20 10:12 Troponin I High Sens 57.3 ng/L (2.3-14.8) H* 11/07/20 22:34 B-Natriuretic Peptide 2496 pg/mL (5-100) H 11/07/20 08:07 Total Protein 6.0 g/dL (6.7-8.2) L 11/05/20 10:12 Albumin 3.1 g/dL (3.2-5.5) L 11/05/20 10:12 Globulin 2.9 g/dL (2.1-4.2) 11/05/20 10:12 Albumin/Globulin Ratio 1.1 (1.0-2.2) 11/05/20 10:12 Lipase 35 U/L (22-51) 11/05/20 10:12 TSH 4.32 uIU/mL (0.34-5.60) 11/05/20 10:12 Fluid Source PLEURAL 11/06/20 12:01 Fluid Color YELLOW 11/06/20 12:01 Fluid Clarity CLEAR 11/06/20 12:01 Fluid WBC 169 /mm^3 11/06/20 12:01 Fluid RBC < 3000 /mm^3 11/06/20 12:01 Fluid Neutrophils % 48 % 11/06/20 12:01 Fluid Lymphocytes % 22 % 11/06/20 12:01 Fluid Macrophages % 31 % 11/06/20 12:01 Nasal Adenovirus (PCR) NOT DETECTED 11/05/20 10:07 Nasal B. parapertussis DNA (PCR) NOT DETECTED 11/05/20 10:07 Nasal Coronavir 229E PCR NOT DETECTED 11/05/20 10:07 Nasal Coronavir HKU1 PCR NOT DETECTED 11/05/20 10:07 Nasal Coronavir NL63 PCR NOT DETECTED 11/05/20 10:07 Nasal Coronavir OC43 PCR NOT DETECTED 11/05/20 10:07 Nasal Enterovir/Rhinovir PCR NOT DETECTED 11/05/20 10:07 Nasal Influenza B PCR NOT DETECTED 11/05/20 10:07 Nasal Influenza A PCR NOT DETECTED 11/05/20 10:07 Nasal Parainfluen 1 PCR NOT DETECTED 11/05/20 10:07 Nasal Parainfluen 2 PCR NOT DETECTED 11/05/20 10:07 Nasal Parainfluen 3 PCR NOT DETECTED 11/05/20 10:07 Nasal Parainfluen 4 PCR NOT DETECTED 11/05/20 10:07 Nasal RSV (PCR) NOT DETECTED 11/05/20 10:07 Nasal B.pertussis DNA PCR NOT DETECTED 11/05/20 10:07 Nasal C.pneumoniae (PCR) NOT DETECTED 11/05/20 10:07 Roberto Human Metapneumo PCR NOT DETECTED 11/05/20 10:07 Nasal M.pneumoniae (PCR) NOT DETECTED 11/05/20 10:07 Nasal SARS-CoV-2 (PCR) NOT DETECTED 11/05/20 10:07 - Procedures Procedures: Procedures CATARAC PHACOEMULS/ASPIR (11/28/14) INSERT LENS AT CATAR EXT (11/28/14) ABX Reporting Has patient been on IV antibiotics over the past 48 hours?: No
[2020-11-08] MEDS: MAGNESIUM OXIDE 400 MG TABLET PO SCH (08:00)
[2020-11-08] MEDS: METOPROLOL SUCCINATE 25 MG TABLET PO SCH (09:24)
[2020-11-08] MEDS: HEPARIN 5,000 UNIT/ML VIAL SUBQ SCH ×2 (09:24→21:21)
[2020-11-08] MEDS: FUROSEMIDE 20 MG/2 ML VIAL IVP SCH (09:24)
[2020-11-08] MEDS: NICOTINE 14 MG PATCH TOP SCH (09:25)
[2020-11-08] MEDS: BENZOCAINE/MENTHOL LOZENGE MM PRN (09:25)
[2020-11-08] MEDS: NYSTATIN POWDER 15 GM TOP SCH ×2 (13:17→21:21)
[2020-11-08] MEDS: MULTIVITAMIN W/MINERALS TABLET PO SCH (13:17)
[2020-11-08] MEDS: SODIUM CHLORIDE FLUSH 0.9% 10 ML SYRINGE IVP PRN (15:02)
[2020-11-08] MEDS: guaiFENesin/CODEINE 5 ML UDC PO PRN (20:41)
[2020-11-08] MEDS: ZOLPIDEM 5 MG TABLET PO PRN (21:20)
[2020-11-09] MEDS: SODIUM CHLORIDE FLUSH 0.9% 10 ML SYRINGE IVP SCH ×4 (00:12→15:35)
[2020-11-09 05:53] LABS: BASOPHILS % (AUTO) 0.1 %; HCT - HEMATOCRIT 36.5 % (37.0-47.0); HGB - HEMOGLOBIN 12.3 g/dL (12.0-16.0); LYMPHOCYTES # (AUTO) 0.5 10^3/uL (1.5-3.5); LYMPHOCYTES % (AUTO) 4.8 %; MEAN CORPUSCULAR HEMOGLOBIN 29.7 pg (27.0-31.0); MEAN CORPUSCULAR HGB CONC 33.7 g/dL (32.0-36.0); MEAN CORPUSCULAR VOLUME 88.2 fL (81.0-99.0); MEAN PLATELET VOLUME 9.9 fL (7.9-10.8); MONOCYTES # (AUTO) 0.2 10^3/uL (0.0-1.0); MONOCYTES % (AUTO) 2.1 %; NEUTROPHILS # (AUTO) 9.2 10^3/uL (1.5-6.6); NEUTROPHILS % (AUTO) 92.5 %; PLT - PLATELET COUNT 190 10^3/uL (130-450); RED BLOOD COUNT 4.14 10^6/uL (4.20-5.40); RED CELL DISTRIBUTION WIDTH 14.5 % (12.0-15.0); WHITE BLOOD COUNT 9.9 x10^3/uL (4.8-10.8)
[2020-11-09 06:01] LABS: CALCIUM 8.4 mg/dL (8.5-10.3); CREATININE 1.5 mg/dL (0.4-1.0); POTASSIUM 3.8 mmol/L (3.5-5.0)
[2020-11-09] MEDS: methylPREDNISolone SUCCINATE 40 MG/ML VIAL IVP SCH ×3 (06:10→21:43)
--- NOTE | 2020-11-09 07:14 | PROVIDER PROGRESS NOTE ---
Assessment/Plan - Problem List (1) CHF exacerbation Assessment/Plan: Continue Lasix 20 mg IV daily. Continue to hold spironolactone. Creatinine today 1.5 On Metroprolol succinate 25 mg p.o. daily Given new onset CHF and EKG changes will do a nuclear stress test on 11/10/20 (2) V-tach Assessment/Plan: Intermittent short runs of monomorphic V. tach Likely due to hypomagnesemia from IV diuresis in patient with depressed left ventricular ejection fraction. Magnesium replaced. Current Mg 1.9. On Magnesium Oxide Nuclear stress test on 11/10/20 (3) Pleural effusion Assessment/Plan: s/p thoracentesis on 11/06/20 with 1L out Continue lasix 20mg IV daily (4) Elevated troponin Assessment/Plan: Troponin trend was 39.2 > 49.4 > 69.7 > 58.5 > 61.1 > 57.3 Nuclear stress test on 11/10/20 (5) Acute renal failure Assessment/Plan: Initially thought to be secondary to CHF exacerbation. However patient may have been diuresed agressively. Continue to hold spironolactone but continue Lasix 20 mg IV daily. Patient's creatinine today was 1.5 with a GFR of 33 (6) Tobacco abuse Assessment/Plan: Patient smokes an average of 1 pack/day. She has been smoking for 61 years. Nicotine patch 14 g transdermal daily has been ordered. (7) Hypertension Assessment/Plan: On metoprolol and lasix currently Losartan and spironolactone held - Current Meds Current Meds: Current Medications Generic Name Dose Route Start Last Admin Trade Name Shadia PRN Reason Stop Dose Admin Acetaminophen 650 mg 11/05/20 10:49 11/07/20 20:10 Acetaminophen 325 Mg Tablet PO 650 mg Q4HR PRN Administration Pain 1 to 4 Albuterol/Ipratropium 3 ml 11/07/20 11:36 11/08/20 03:58 Ipratropium/Albuterol 3 Ml Neb INH 3 ml Q4HR PRN Administration Wheezing Furosemide 20 mg 11/08/20 09:00 11/08/20 09:24 Furosemide 20 Mg/2 Ml Vial IVP 20 mg DAILY KEESHA Administration Guaifenesin/Codeine Phosphate 5 ml 11/05/20 22:20 11/08/20 20:41 Guaifenesin/Codeine 5 Ml Udc PO 5 ml Q6HR PRN Administration Cough Heparin Sodium (Porcine) 5,000 unit 11/06/20 09:00 11/08/20 21:21 Heparin 5,000 Unit/Ml Vial SUBQ 5,000 unit BID KEESHA Administration Magnesium Oxide 400 mg 11/08/20 08:00 11/08/20 08:00 Magnesium Oxide 400 Mg Tablet PO 11/10/20 00:00 400 mg DAILYWM KEESHA Administration Methylprednisolone 40 mg 11/07/20 23:55 11/09/20 06:10 Methylprednisolone Succinate 40 Mg/Ml Vial IVP 40 mg TID KEESHA Administration Metoprolol Succinate 25 mg 11/07/20 12:00 11/08/20 09:24 Metoprolol Succinate 25 Mg Tablet PO 25 mg DAILY KEESHA Administration Multivitamins/Minerals 1 tab 11/08/20 12:00 11/08/20 13:17 Multivitamin W/Minerals Tablet PO 1 tab DAILYWM KEESHA Administration Nicotine 1 patch 11/05/20 13:00 11/08/20 09:25 Nicotine 14 Mg Patch TOP 1 patch DAILY KEESHA Administration Nystatin 1 applic 11/05/20 13:00 11/08/20 21:21 Nystatin Powder 15 Gm TOP 1 applic BID KEESHA Administration Sodium Chloride 10 ml 11/05/20 10:49 11/08/20 15:02 Sodium Chloride Flush 0.9% 10 Ml Syringe IVP 10 ml PRN PRN Administration NEEDED PER PROVIDER ORDERS Sodium Chloride 10 ml 11/05/20 17:00 11/09/20 00:12 Sodium Chloride Flush 0.9% 10 Ml Syringe IVP 10 ml 0100,0900,1700 KEESHA Administration Zolpidem Tartrate 5 mg 11/06/20 20:11 11/08/20 21:20 Zolpidem 5 Mg Tablet PO 5 mg QPM PRN Administration Insomnia - Lab Result Fish Bone Diagrams: 11/09/20 05:45 11/09/20 05:45 - Additional Planning My Orders: My Active Orders 11/08/20 09:00 FUROSEMIDE INJ 20mg VIAL [LASIX INJ 20mg VIAL] 20 mg IVP DAILY 11/08/20 12:00 Multivitamin W/Minerals [Theragran M] 1 tab PO DAILYWM 11/10/20 05:00 BMP - BASIC METABOLIC PANEL [CHEM] DAILYLAB BNP - B-NATRIURETIC PEPTIDE [IAI] DAILYLAB CBC - COMP BLD CT W/AUTO DIFF [HEME] DAILYLAB 11/10/20 06:00 Chest 1 View X-Ray [XR] Routine Subjective - Subjective Patient Reports: Other (Resting comfortably in bedside chair at time of exam. She continues to breathe better daily. Oxygen requirement is down to 2 L via nasal cannula. She again complained of dry nose due to the nasal cannula oxygen. She denied any other complaints.) Objective Vital Signs: Vital Signs - 24 hr 11/08/20 11/08/20 11/08/20 08:13 10:50 11:34 Temperature 36.3 C L 36.5 C Heart Rate Heart Rate [ 92 Activity] Heart Rate [ 65 57 L Brachial] Heart Rate [ 82 Sitting] Heart Rate [ 84 Standing] Respiratory 20 22 Rate Blood Pressure 108/89 H [Activity] Blood Pressure 132/93 H 97/69 [Left Brachial artery] Blood Pressure 114/73 [Sitting] Blood Pressure 109/74 [Standing] O2 Saturation 99 95 O2 Saturation [ 98 With Activity] 11/08/20 11/08/20 11/08/20 16:28 17:00 20:09 Temperature 36.3 C L 36.7 C 36.6 C Heart Rate Heart Rate [ Activity] Heart Rate [ 64 62 65 Brachial] Heart Rate [ Sitting] Heart Rate [ Standing] Respiratory 20 18 18 Rate Blood Pressure [Activity] Blood Pressure 104/66 121/84 H 106/80 [Left Brachial artery] Blood Pressure [Sitting] Blood Pressure [Standing] O2 Saturation 93 100 95 O2 Saturation [ With Activity] 11/08/20 11/08/20 11/09/20 20:10 22:46 06:00 Temperature 36.7 C 36.4 C L Heart Rate 65 Heart Rate [ Activity] Heart Rate [ 62 67 Brachial] Heart Rate [ Sitting] Heart Rate [ Standing] Respiratory 18 18 14 Rate Blood Pressure [Activity] Blood Pressure 121/84 H 120/85 H [Left Brachial artery] Blood Pressure [Sitting] Blood Pressure [Standing] O2 Saturation 100 98 O2 Saturation [ With Activity] Oxygen O2 Source [With Activity] Nasal cannula O2 Source Room air Oxygen Flow Rate 2 I&O (Last 24 Hrs): Intake and Output Totals x24h 11/07/20 11/08/20 11/09/20 23:59 23:59 23:59 Intake Total 475 540 Output Total 1050 400 Balance -575 540 -400 Comments/Notes: General: Alert, Oriented x3, No acute distress HEENT: Atraumatic, PERRLA, EOMI Neck: Supple, No JVD Neuro: Alert, Non Focal, Oriented Times 3 Cardiovascular: Regular rate, Other (3/6 murmur) Respiratory: Other (No conversational dyspnea. Coarse breath sounds. No wheezing, rhonchi or crackles) Abdomen: Normal bowel sounds, Soft, No tenderness, No masses Skin: No rashes, No breakdown Comments/Notes: - Results Results: Laboratory Results WBC 9.9 x10^3/uL (4.8-10.8) 11/09/20 05:45 RBC 4.14 10^6/uL (4.20-5.40) L 11/09/20 05:45 Hgb 12.3 g/dL (12.0-16.0) 11/09/20 05:45 Hct 36.5 % (37.0-47.0) L 11/09/20 05:45 MCV 88.2 fL (81.0-99.0) 11/09/20 05:45 MCH 29.7 pg (27.0-31.0) 11/09/20 05:45 MCHC 33.7 g/dL (32.0-36.0) 11/09/20 05:45 RDW 14.5 % (12.0-15.0) 11/09/20 05:45 Plt Count 190 10^3/uL (130-450) 11/09/20 05:45 MPV 9.9 fL (7.9-10.8) 11/09/20 05:45 Neut # (Auto) 9.2 10^3/uL (1.5-6.6) H 11/09/20 05:45 Lymph # (Auto) 0.5 10^3/uL (1.5-3.5) L 11/09/20 05:45 [place] # (Auto) 0.2 10^3/uL (0.0-1.0) 11/09/20 05:45 Eos # (Auto) 0.0 10^3/uL (0.0-0.7) 11/09/20 05:45 Baso # (Auto) 0.0 10^3/uL (0.0-0.1) 11/09/20 05:45 Absolute Nucleated RBC 0.00 x10^3/uL 11/09/20 05:45 Nucleated RBC % 0.0 /100WBC 11/09/20 05:45 PT 12.3 secs (9.9-12.6) 11/06/20 04:45 INR 1.1 (0.8-1.2) 11/06/20 04:45 Sodium 132 mmol/L (135-145) L 11/09/20 05:45 Potassium 3.8 mmol/L (3.5-5.0) 11/09/20 05:45 Chloride 95 mmol/L (101-111) L 11/09/20 05:45 Carbon Dioxide 28 mmol/L (21-32) 11/09/20 05:45 Anion Gap 9.0 (6-13) 11/09/20 05:45 BUN 43 mg/dL (6-20) H 11/09/20 05:45 Creatinine 1.5 mg/dL (0.4-1.0) H 11/09/20 05:45 Estimated GFR (MDRD) 33 (>89) L 11/09/20 05:45 Glucose 121 mg/dL (70-100) H 11/09/20 05:45 Calcium 8.4 mg/dL (8.5-10.3) L 11/09/20 05:45 Phosphorus 2.9 mg/dL (2.5-4.6) 11/07/20 18:49 Magnesium 1.9 mg/dL (1.7-2.8) 11/08/20 06:00 Total Bilirubin 0.9 mg/dL (0.2-1.0) 11/05/20 10:12 AST 20 IU/L (10-42) 11/05/20 10:12 ALT 18 IU/L (10-60) 11/05/20 10:12 Alkaline Phosphatase 84 IU/L (42-121) 11/05/20 10:12 Troponin I High Sens 57.3 ng/L (2.3-14.8) H* 11/07/20 22:34 B-Natriuretic Peptide 1913 pg/mL (5-100) H 11/09/20 05:45 Total Protein 6.0 g/dL (6.7-8.2) L 11/05/20 10:12 Albumin 3.1 g/dL (3.2-5.5) L 11/05/20 10:12 Globulin 2.9 g/dL (2.1-4.2) 11/05/20 10:12 Albumin/Globulin Ratio 1.1 (1.0-2.2) 11/05/20 10:12 Lipase 35 U/L (22-51) 11/05/20 10:12 TSH 4.32 uIU/mL (0.34-5.60) 11/05/20 10:12 Fluid Source PLEURAL 11/06/20 12:01 Fluid Color YELLOW 11/06/20 12:01 Fluid Clarity CLEAR 11/06/20 12:01 Fluid WBC 169 /mm^3 11/06/20 12:01 Fluid RBC < 3000 /mm^3 11/06/20 12:01 Fluid Neutrophils % 48 % 11/06/20 12:01 Fluid Lymphocytes % 22 % 11/06/20 12:01 Fluid Macrophages % 31 % 11/06/20 12:01 Nasal Adenovirus (PCR) NOT DETECTED 11/05/20 10:07 Nasal B. parapertussis DNA (PCR) NOT DETECTED 11/05/20 10:07 Nasal Coronavir 229E PCR NOT DETECTED 11/05/20 10:07 Nasal Coronavir HKU1 PCR NOT DETECTED 11/05/20 10:07 Nasal Coronavir NL63 PCR NOT DETECTED 11/05/20 10:07 Nasal Coronavir OC43 PCR NOT DETECTED 11/05/20 10:07 Nasal Enterovir/Rhinovir PCR NOT DETECTED 11/05/20 10:07 Nasal Influenza B PCR NOT DETECTED 11/05/20 10:07 Nasal Influenza A PCR NOT DETECTED 11/05/20 10:07 Nasal Parainfluen 1 PCR NOT DETECTED 11/05/20 10:07 Nasal Parainfluen 2 PCR NOT DETECTED 11/05/20 10:07 Nasal Parainfluen 3 PCR NOT DETECTED 11/05/20 10:07 Nasal Parainfluen 4 PCR NOT DETECTED 11/05/20 10:07 Nasal RSV (PCR) NOT DETECTED 11/05/20 10:07 Nasal B.pertussis DNA PCR NOT DETECTED 11/05/20 10:07 Nasal C.pneumoniae (PCR) NOT DETECTED 11/05/20 10:07 Roberto Human Metapneumo PCR NOT DETECTED 11/05/20 10:07 Nasal M.pneumoniae (PCR) NOT DETECTED 11/05/20 10:07 Nasal SARS-CoV-2 (PCR) NOT DETECTED 11/05/20 10:07 Ref Lab Test Result REPORT 11/06/20 12:01 - Procedures Procedures: Procedures CATARAC PHACOEMULS/ASPIR (11/28/14) INSERT LENS AT CATAR EXT (11/28/14) ABX Reporting Has patient been on IV antibiotics over the past 48 hours?: No
[2020-11-09] MEDS: MULTIVITAMIN W/MINERALS TABLET PO SCH (07:45)
[2020-11-09] MEDS: MAGNESIUM OXIDE 400 MG TABLET PO SCH (07:45)
[2020-11-09] MEDS: FUROSEMIDE 20 MG/2 ML VIAL IVP SCH (09:04)
[2020-11-09] MEDS: NICOTINE 14 MG PATCH TOP SCH (09:04)
[2020-11-09] MEDS: METOPROLOL SUCCINATE 25 MG TABLET PO SCH (09:04)
[2020-11-09] MEDS: HEPARIN 5,000 UNIT/ML VIAL SUBQ SCH ×2 (09:05→21:42)
[2020-11-09] MEDS: ACETAMINOPHEN 325 MG TABLET PO PRN (15:35)
[2020-11-09] MEDS: guaiFENesin/CODEINE 5 ML UDC PO PRN (15:35)
[2020-11-09] MEDS: NYSTATIN POWDER 15 GM TOP SCH ×2 (15:36→21:43)
[2020-11-09] MEDS ORDERED: diphenhydrAMINE 25 MG CAPSULE PO PRN (19:06)
[2020-11-09] MEDS: SODIUM CHLORIDE FLUSH 0.9% 10 ML SYRINGE IVP PRN (21:47)
[2020-11-10] MEDS: SODIUM CHLORIDE FLUSH 0.9% 10 ML SYRINGE IVP SCH ×4 (00:45→23:51)
[2020-11-10] MEDS: methylPREDNISolone SUCCINATE 40 MG/ML VIAL IVP SCH ×3 (05:26→21:31)
[2020-11-10] MEDS: SODIUM CHLORIDE FLUSH 0.9% 10 ML SYRINGE IVP PRN (05:26)
[2020-11-10 06:30] LABS: EOSINOPHILS # (AUTO) 0.2 10^3/uL (0.0-0.7); EOSINOPHILS % (AUTO) 2.1 %; HCT - HEMATOCRIT 38.1 % (37.0-47.0); HGB - HEMOGLOBIN 12.7 g/dL (12.0-16.0); LYMPHOCYTES # (AUTO) 0.4 10^3/uL (1.5-3.5); LYMPHOCYTES % (AUTO) 4.1 %; MEAN CORPUSCULAR HEMOGLOBIN 29.4 pg (27.0-31.0); MEAN CORPUSCULAR HGB CONC 33.3 g/dL (32.0-36.0); MEAN CORPUSCULAR VOLUME 88.2 fL (81.0-99.0); MEAN PLATELET VOLUME 9.6 fL (7.9-10.8); MONOCYTES # (AUTO) 0.2 10^3/uL (0.0-1.0); MONOCYTES % (AUTO) 2.3 %; NEUTROPHILS # (AUTO) 7.8 10^3/uL (1.5-6.6); PLT - PLATELET COUNT 207 10^3/uL (130-450); RED BLOOD COUNT 4.32 10^6/uL (4.20-5.40); RED CELL DISTRIBUTION WIDTH 14.4 % (12.0-15.0); WHITE BLOOD COUNT 8.5 x10^3/uL (4.8-10.8)
[2020-11-10 06:36] LABS: CALCIUM 8.8 mg/dL (8.5-10.3); CREATININE 1.8 mg/dL (0.4-1.0); POTASSIUM 3.8 mmol/L (3.5-5.0)
[2020-11-10 06:42] LABS: SLIDE REVIEW? Indicated
--- NOTE | 2020-11-10 08:24 | XRAY Report ---
PROCEDURE: Chest 1 View X-Ray INDICATIONS: dyspnea, hyopxia, pulmonary edema TECHNIQUE: One view of the chest was acquired. COMPARISON: 11/07/2020 FINDINGS: Bilateral axillary surgical clips. Scattered subsegmental scarring/atelectasis. No acute consolidation. Diffuse hazy and groundglass opa cities suggestive of pulmonary edema although this appears improved No pleural effusion or pneumoth orax Mediastinum: Mediastinal contours appear normal. Heart size is normal. Bilateral shoulder joint degeneration. IMPRESSION: Improving pulmonary edema since 11/07/2020. Recommend clinical and laboratory correlation to exclude un derlying infection. No new consolidation. Reviewed by: Wade Sheppard MD on 11/10/2020 8:23 AM PDT Approved by: Wade Sheppard MD on 11/10/2020 8:23 AM PDT Station ID: [id number]
[2020-11-10 08:40] LABS: DIFFERENTIAL COMMENT MANUAL=AUTO DIFF; PLATELET ESTIMATE, MANUAL NORMAL (130-450,000) (NORMAL); PLATELET MORPHOLOGY NORMAL APPEARANCE (NORMAL); RBC MORPHOLOGY (MULTIPLE) NORMAL APPEARANCE (NORMAL)
[2020-11-10] MEDS: MULTIVITAMIN W/MINERALS TABLET PO SCH (10:21)
[2020-11-10] MEDS: FUROSEMIDE 20 MG/2 ML VIAL IVP SCH (10:21)
[2020-11-10] MEDS: NICOTINE 14 MG PATCH TOP SCH (10:22)
[2020-11-10] MEDS: HEPARIN 5,000 UNIT/ML VIAL SUBQ SCH ×2 (10:43→21:30)
[2020-11-10] MEDS: NYSTATIN POWDER 15 GM TOP SCH ×2 (10:46→20:47)
[2020-11-10] MEDS: METOPROLOL SUCCINATE 25 MG TABLET PO SCH (12:00)
[2020-11-10] MEDS ORDERED: REGADENOSON 0.4 MG/5 ML SYRINGE IVP ONE ×2 (12:49→15:39)
[2020-11-10] MEDS ORDERED: AMINOPHYLLINE 500 MG/20 ML VIAL ONE (12:50)
[2020-11-10] MEDS ORDERED: AMINOPHYLLINE 500 MG/20 ML VIAL IV ONE (15:00)
[2020-11-10] MEDS ORDERED: SODIUM CHLORIDE 0.9% IV ONE (15:43)
[2020-11-10] MEDS ORDERED: AMINOPHYLLINE IV ONE (15:43)
--- NOTE | 2020-11-10 16:04 | CARDIAC PROCEDURE NOTE ---
DATE OF SERVICE: 11/10/2020 Physician: Sandra Dockery MD INDICATIONS: Ventricular tachycardia, congestive heart failure (CHF). CARDIAC RISK FACTORS: Hypertension, postmenopausal status, advanced age, smoker, and hyperlipidemia. DESCRIPTION OF PROCEDURE: After signing informed consent, the patient underwent a Lexiscan pharmaceutical stress test with nuclear myocardial perfusion imaging. RESTING HEART RATE: 63. PEAK HEART RATE: 76. RESTING BLOOD PRESSURE: 155/70. PEAK BLOOD PRESSURE: 108/85 (vasodilation as expected with Lexiscan). Lexiscan was infused per protocol. The patient had brief flushing, shortness of breath, and a headache. She had no chest pain. Aminophylline 25 mg IV was given for reversal of her shortness of breath. Oxygen saturation was 91-97% on 2 liters oxygen by nasal cannula, throughout the test. RESTING EKG: Normal sinus rhythm, PACs, PVCs, LVH with strain, [address] elevation in V1 through V4 with inverted T waves in the same leads, plus biphasic T waves in V5 and V6. EKG AT PEAK: No new ST segment or T-wave changes develop with pharmaceutical stress. SUMMARY 1. Abnormal resting EKG. 2. No ischemic changes developed by EKG criteria; however, the baseline electrocardiogram is already abnormal, has left ventricular hypertrophy strain pattern. 3. Nuclear images were reported separately and showed: small, apical-septal reversible perfusion defect consistent with ischemia, depressed LVEF of 49%. IMPRESSION: Abnormal stress test. cc: DO Devaughn Esquivel MD TD: 11/10/2020 16:00 [facility]
--- NOTE | 2020-11-10 18:32 | Nuclear Medicine Report ---
PROCEDURE: Rest and pharmacological stress myocardial perfusion SPECT with gated imaging and ejection fraction INDICATIONS: VTach, CHF RADIOPHARMACEUTICAL: 11.9 mCi Tc-99m Myoview IV at rest and 34.9 mCi Tc-99m Myoview IV at peak exerc ise. [id number] was performed. TECHNIQUE: Radiopharmaceutical was injected at peak stress test, and also at rest. SPECT images wer e obtained. SPECT myocardial perfusion images were displayed in short axis, horizontal long axis, an d vertical long axis views. Gated images were reviewed using Auto[employer] software. COMPARISON: None available. FINDINGS: Raw data: There is good myocardial labeling by radiotracer. No significant motion artifacts. Lung- to-heart ratio is 0.34 (normal is less than 0.38 for tetrafosmin tracer). Left ventricle function: Gated images demonstrate normal left ventricle wall thickening. No segment al wall motion abnormality. No transient ischemic dilation; TID is 0.98 (normal less than 1.3). The left ventricle resting end-diastolic volume is normal. Left ventricle stress ejection fraction is 4 9%; normal values are above 45%. Myocardial perfusion: There is small, very mild, reversible septal apical perfusion defect, suspicio us for myocardial ischemia. IMPRESSION: 1. Probably abnormal myocardial perfusion images. The small, very mild, reversible septal apical perf usion defect, suspicious for myocardial ischemia. Alternatively, this more very mild fact could be ca used by breast attenuation and shifting breast artifact. 2. Normal left ventricular volume. Low normal left ventricular systolic function. 3. Please correlate with stress EKG result. The result was discussed with Dr. Wilder. PQRS ATTESTATIONS: Measure 322 - Is this imaging test primarily performed on a low-risk surgery patient for preoperative evaluation within 30 days preceding their low-risk non-cardiac surgery? Low-risk surgery is defined as cardiac or myocardial infarction less than 1%, including (but not limited to) endoscopic pr ocedures, superficial procedures, cataract surgery, and excisional breast surgery: Answer: No Measure 323 - Is this imaging test performed primarily for the monitoring of an asymptomatic patient who had percutaneous coronary intervention on the visit date or within 2 years of the visit date? An swer: No Measure 324 - Is this imaging test performed primarily for the initial detection and risk assessment on an asymptomatic, low coronary heart disease patient? Low CHD risk definition = clinicians should consider the maximum number of available patient factors used to estimate risk based on [place] (A TP III criteria), typically age, gender, diabetes, smoking status, and use of blood pressure medicati on, and integrate age appropriate estimates for missing elements, such as LDL or standard blood press ure. Answer: No Reviewed by: Hellen Ramsay MD on 11/10/2020 6:30 PM PDT Approved by: Hellen Ramsay MD on 11/10/2020 6:30 PM PDT Station ID: [id number]
--- NOTE | 2020-11-10 19:04 | PROVIDER PROGRESS NOTE ---
Assessment/Plan - Problem List (1) CHF exacerbation Assessment/Plan: She is on Lasix 20 mg IV daily. Continue to hold spironolactone. Creatinine today 1.5 On Metroprolol succinate 25 mg p.o. daily 2D echocardiogram showed left ventricular size was normal. It showed moderate concentric left ventricular hypertrophy. Overall left ventricular systolic function is mild to moderately globally impaired with an ejection fraction of 40 to 45%. Impaired relaxation consistent with grade 1 diastolic dysfunction. No regional wall motion abnormality was seen. The RVSP at rest was [address] angio of the chest could not be done due to patient's poor renal function. Patient's estimated GFR has fluctuated between 27 and 33. BNP has improved from 3902 1762. As a result of new onset CHF, intermittent short runs of V. tach, EKG changes since admission the patient underwent a nuclear stress test today. It reported Small, very mild, reversible septal apical perfusion defect, suspicious for myocardial ischemia. To be discussed by my colleague with the patient's daughter Debra Head in the morning. With need to establish care with a blueprint blocker upon discharge Patient will undergo a desaturation study in the morning to assess home oxygen need. (2) V-tach Assessment/Plan: Intermittent short runs of monomorphic V. tach Likely due to hypomagnesemia from IV diuresis in patient with depressed left ventricular ejection fraction. Magnesium replaced. On Magnesium Oxide 2D echocardiogram showed left ventricular size was normal. It showed moderate concentric left ventricular hypertrophy. Overall left ventricular systolic function is mild to moderately globally impaired with an ejection fraction of 40 to 45%. Impaired relaxation consistent with grade 1 diastolic dysfunction. No regional wall motion abnormality was seen. The RVSP at rest was 53 mmHg. (3) Pleural effusion Assessment/Plan: s/p thoracentesis on 11/06/20 with 1L out Continue lasix 20mg IV daily (4) Elevated troponin Assessment/Plan: Troponin trend was 39.2 > 49.4 > 69.7 > 58.5 > 61.1 > 57.3 Nuclear stress test was done on 11/10/20. It reported a small, very mild, reversible septal apical perfusion defect, suspicious for myocardial ischemia. To be discussed by my colleague with the patient's daughter Debra Head in the morning. With need to establish care with a blueprint blocker upon discharge (5) Acute renal failure Assessment/Plan: Initially thought to be secondary to CHF exacerbation. However patient may have been diuresed agressively. Continue to hold spironolactone but continue Lasix 20 mg IV daily. Patient's creatinine today was 1.8 with a GFR of 27 (6) Tobacco abuse Assessment/Plan: Patient smokes an average of 1 pack/day. She has been smoking for 61 years. Nicotine patch 14 g transdermal daily has been ordered. (7) Hypertension Assessment/Plan: On metoprolol and lasix currently Losartan and spironolactone held - Current Meds Current Meds: Current Medications Generic Name Dose Route Start Last Admin Trade Name Freq PRN Reason Stop Dose Admin Acetaminophen 650 mg 11/05/20 10:49 11/09/20 15:35 Acetaminophen 325 Mg Tablet PO 650 mg Q4HR PRN Administration Pain 1 to 4 Albuterol/Ipratropium 3 ml 11/07/20 11:36 11/08/20 03:58 Ipratropium/Albuterol 3 Ml Neb INH 3 ml Q4HR PRN Administration Wheezing Diphenhydramine HCl 25 mg 11/09/20 19:06 11/09/20 19:37 Diphenhydramine 25 Mg Capsule PO 25 mg Q4HR PRN Administration Allergy Symptoms Furosemide 20 mg 11/08/20 09:00 11/10/20 10:21 Furosemide 20 Mg/2 Ml Vial IVP 20 mg DAILY KEESHA Administration Guaifenesin/Codeine Phosphate 5 ml 11/05/20 22:20 11/09/20 15:35 Guaifenesin/Codeine 5 Ml Udc PO 5 ml Q6HR PRN Administration Cough Heparin Sodium (Porcine) 5,000 unit 11/06/20 09:00 11/10/20 10:43 Heparin 5,000 Unit/Ml Vial SUBQ 5,000 unit BID EKESHA Administration Methylprednisolone 40 mg 11/07/20 23:55 11/10/20 15:52 Methylprednisolone Succinate 40 Mg/Ml Vial IVP 40 mg TID KEESHA Administration Metoprolol Succinate 25 mg 11/07/20 12:00 11/10/20 12:00 Metoprolol Succinate 25 Mg Tablet PO Not Given DAILY KEESHA Multivitamins/Minerals 1 tab 11/08/20 12:00 11/10/20 10:21 Multivitamin W/Minerals Tablet PO 1 tab DAILYWM KEESHA Administration Nicotine 1 patch 11/05/20 13:00 11/10/20 10:22 Nicotine 14 Mg Patch TOP 1 patch DAILY KEESHA Administration Nystatin 1 applic 11/05/20 13:00 11/10/20 10:46 Nystatin Powder 15 Gm TOP 1 applic BID KEESHA Administration Sodium Chloride 10 ml 11/05/20 10:49 11/10/20 05:26 Sodium Chloride Flush 0.9% 10 Ml Syringe IVP 10 ml PRN PRN Administration NEEDED PER PROVIDER ORDERS Sodium Chloride 10 ml 11/05/20 17:00 11/10/20 15:52 Sodium Chloride Flush 0.9% 10 Ml Syringe IVP 10 ml 0100,0900,1700 KEESHA Administration Zolpidem Tartrate 5 mg 11/06/20 20:11 11/08/20 21:20 Zolpidem 5 Mg Tablet PO 5 mg QPM PRN Administration Insomnia - Lab Result Fish Bone Diagrams: 11/10/20 05:45 11/10/20 05:45 - Additional Planning My Orders: My Active Orders 11/09/20 19:06 diphenhydrAMINE [Benadryl] 25 mg PO Q4HR PRN 11/10/20 08:25 Oxygen Desat. Study w/Exercise [RC] .ONCE Subjective - Subjective Patient Reports: Other (Length of more shortness of breath today. She denied chest pain, abdominal pain, nausea, vomiting, fever or chills.) Objective Vital Signs: Vital Signs - 24 hr 11/09/20 11/09/20 11/10/20 19:15 20:25 00:46 Temperature 36.5 C 36.6 C Heart Rate 64 Heart Rate [ Activity] Heart Rate [ 64 67 Brachial] Heart Rate [ Sitting] Heart Rate [ Standing] Respiratory 20 22 19 Rate Blood Pressure [Activity] Blood Pressure 110/76 122/78 [Left Brachial artery] Blood Pressure [Sitting] Blood Pressure [Standing] O2 Saturation 94 93 11/10/20 11/10/20 11/10/20 05:13 08:10 11:59 Temperature 36.6 C 36.4 C L 36.4 C L Heart Rate Heart Rate [ Activity] Heart Rate [ 69 60 54 L Brachial] Heart Rate [ Sitting] Heart Rate [ Standing] Respiratory 20 18 18 Rate Blood Pressure [Activity] Blood Pressure 117/82 H 131/86 H 119/73 [Left Brachial artery] Blood Pressure [Sitting] Blood Pressure [Standing] O2 Saturation 93 100 100 11/10/20 11/10/20 14:52 15:59 Temperature 36.5 C Heart Rate Heart Rate [ 92 Activity] Heart Rate [ 70 Brachial] Heart Rate [ 82 Sitting] Heart Rate [ 84 Standing] Respiratory 16 Rate Blood Pressure 108/89 H [Activity] Blood Pressure 103/59 L [Left Brachial artery] Blood Pressure 114/73 [Sitting] Blood Pressure 109/74 [Standing] O2 Saturation 98 Oxygen O2 Source [With Activity] Nasal cannula O2 Source Nasal cannula Oxygen Flow Rate 2 I&O (Last 24 Hrs): Intake and Output Totals x24h 11/08/20 11/09/20 11/10/20 23:59 23:59 23:59 Intake Total 540 810 200 Output Total 975 175 Balance 540 -165 25 General: Alert, Oriented x3, Mild distress (Respiratory) HEENT: PERRLA, EOMI Neck: Supple, No JVD Neuro: Alert, Non Focal, Oriented Times 3 Cardiovascular: Regular rate, Other (3/6 murmur) Respiratory: Chest non-tender, No respiratory distress, Breath sounds nml Abdomen: Normal bowel sounds, Soft, No tenderness Extremities: No clubbing, No cyanosis, Other (+1 edema) Skin: No rashes, No breakdown - Results Results: Laboratory Results WBC 8.5 x10^3/uL (4.8-10.8) 11/10/20 05:45 RBC 4.32 10^6/uL (4.20-5.40) 11/10/20 05:45 Hgb 12.7 g/dL (12.0-16.0) 11/10/20 05:45 Hct 38.1 % (37.0-47.0) 11/10/20 05:45 MCV 88.2 fL (81.0-99.0) 11/10/20 05:45 MCH 29.4 pg (27.0-31.0) 11/10/20 05:45 MCHC 33.3 g/dL (32.0-36.0) 11/10/20 05:45 RDW 14.4 % (12.0-15.0) 11/10/20 05:45 Plt Count 207 10^3/uL (130-450) 11/10/20 05:45 MPV 9.6 fL (7.9-10.8) 11/10/20 05:45 Neut # (Auto) 7.8 10^3/uL (1.5-6.6) H 11/10/20 05:45 Lymph # (Auto) 0.4 10^3/uL (1.5-3.5) L 11/10/20 05:45 [place] # (Auto) 0.2 10^3/uL (0.0-1.0) 11/10/20 05:45 Eos # (Auto) 0.2 10^3/uL (0.0-0.7) 11/10/20 05:45 Baso # (Auto) 0.0 10^3/uL (0.0-0.1) 11/10/20 05:45 Absolute Nucleated RBC 0.00 x10^3/uL 11/10/20 05:45 Band Neuts % (Manual) Not Reportable 11/10/20 05:45 Abnorm Lymph % (Manual) Not Reportable 11/10/20 05:45 Nucleated RBC % 0.0 /100WBC 11/10/20 05:45 Neutrophils # (Manual) Not Reportable 11/10/20 05:45 Lymphocytes # (Manual) Not Reportable 11/10/20 05:45 Monocytes # (Manual) Not Reportable 11/10/20 05:45 Eosinophils # (Manual) Not Reportable 11/10/20 05:45 Basophils # (Manual) Not Reportable 11/10/20 05:45 Differential Comment MANUAL=AUTO DIFF 11/10/20 05:45 Manual Slide Review Indicated 11/10/20 05:45 Platelet Estimate NORMAL (130-450,000) (NORMAL) 11/10/20 05:45 Platelet Morphology NORMAL APPEARANCE (NORMAL) 11/10/20 05:45 RBC Morph Micro Appear NORMAL APPEARANCE (NORMAL) 11/10/20 05:45 PT 12.3 secs (9.9-12.6) 11/06/20 04:45 INR 1.1 (0.8-1.2) 11/06/20 04:45 Sodium 134 mmol/L (135-145) L 11/10/20 05:45 Potassium 3.8 mmol/L (3.5-5.0) 11/10/20 05:45 Chloride 96 mmol/L (101-111) L 11/10/20 05:45 Carbon Dioxide 28 mmol/L (21-32) 11/10/20 05:45 Anion Gap 10.0 (6-13) 11/10/20 05:45 BUN 55 mg/dL (6-20) H 11/10/20 05:45 Creatinine 1.8 mg/dL (0.4-1.0) H 11/10/20 05:45 Estimated GFR (MDRD) 27 (>89) L 11/10/20 05:45 Glucose 108 mg/dL (70-100) H 11/10/20 05:45 Calcium 8.8 mg/dL (8.5-10.3) 11/10/20 05:45 Phosphorus 2.9 mg/dL (2.5-4.6) 11/07/20 18:49 Magnesium 1.9 mg/dL (1.7-2.8) 11/08/20 06:00 Total Bilirubin 0.9 mg/dL (0.2-1.0) 11/05/20 10:12 AST 20 IU/L (10-42) 11/05/20 10:12 ALT 18 IU/L (10-60) 11/05/20 10:12 Alkaline Phosphatase 84 IU/L (42-121) 11/05/20 10:12 Troponin I High Sens 57.3 ng/L (2.3-14.8) H* 11/07/20 22:34 B-Natriuretic Peptide 1762 pg/mL (5-100) H 11/10/20 05:45 Total Protein 6.0 g/dL (6.7-8.2) L 11/05/20 10:12 Albumin 3.1 g/dL (3.2-5.5) L 11/05/20 10:12 Globulin 2.9 g/dL (2.1-4.2) 11/05/20 10:12 Albumin/Globulin Ratio 1.1 (1.0-2.2) 11/05/20 10:12 Lipase 35 U/L (22-51) 11/05/20 10:12 TSH 4.32 uIU/mL (0.34-5.60) 11/05/20 10:12 Fluid Source PLEURAL 11/06/20 12:01 Fluid Color YELLOW 11/06/20 12:01 Fluid Clarity CLEAR 11/06/20 12:01 Fluid WBC 169 /mm^3 11/06/20 12:01 Fluid RBC < 3000 /mm^3 11/06/20 12:01 Fluid Neutrophils % 48 % 11/06/20 12:01 Fluid Lymphocytes % 22 % 11/06/20 12:01 Fluid Macrophages % 31 % 11/06/20 12:01 Nasal Adenovirus (PCR) NOT DETECTED 11/05/20 10:07 Nasal B. parapertussis DNA (PCR) NOT DETECTED 11/05/20 10:07 Nasal Coronavir 229E PCR NOT DETECTED 11/05/20 10:07 Nasal Coronavir HKU1 PCR NOT DETECTED 11/05/20 10:07 Nasal Coronavir NL63 PCR NOT DETECTED 11/05/20 10:07 Nasal Coronavir OC43 PCR NOT DETECTED 11/05/20 10:07 Nasal Enterovir/Rhinovir PCR NOT DETECTED 11/05/20 10:07 Nasal Influenza B PCR NOT DETECTED 11/05/20 10:07 Nasal Influenza A PCR NOT DETECTED 11/05/20 10:07 Nasal Parainfluen 1 PCR NOT DETECTED 11/05/20 10:07 Nasal Parainfluen 2 PCR NOT DETECTED 11/05/20 10:07 Nasal Parainfluen 3 PCR NOT DETECTED 11/05/20 10:07 Nasal Parainfluen 4 PCR NOT DETECTED 11/05/20 10:07 Nasal RSV (PCR) NOT DETECTED 11/05/20 10:07 Nasal B.pertussis DNA PCR NOT DETECTED 11/05/20 10:07 Nasal C.pneumoniae (PCR) NOT DETECTED 11/05/20 10:07 Roberto Human Metapneumo PCR NOT DETECTED 11/05/20 10:07 Nasal M.pneumoniae (PCR) NOT DETECTED 11/05/20 10:07 Nasal SARS-CoV-2 (PCR) NOT DETECTED 11/05/20 10:07 Ref Lab Test Result REPORT 11/06/20 12:01 Ref Lab Test Result REPORT 11/06/20 12:01 - Procedures Procedures: Procedures CATARAC PHACOEMULS/ASPIR (11/28/14) INSERT LENS AT CATAR EXT (11/28/14) ABX Reporting Has patient been on IV antibiotics over the past 48 hours?: No
[2020-11-10] MEDS: ACETAMINOPHEN 325 MG TABLET PO PRN (20:47)
[2020-11-10] MEDS: ZOLPIDEM 5 MG TABLET PO PRN (21:31)
[2020-11-11] MEDS: guaiFENesin/CODEINE 5 ML UDC PO PRN ×2 (00:02→08:07)
[2020-11-11] MEDS: methylPREDNISolone SUCCINATE 40 MG/ML VIAL IVP SCH (06:10)
[2020-11-11] MEDS: METOPROLOL SUCCINATE 25 MG TABLET PO SCH (08:06)
[2020-11-11] MEDS: SODIUM CHLORIDE FLUSH 0.9% 10 ML SYRINGE IVP SCH ×2 (08:07→16:22)
[2020-11-11] MEDS: MULTIVITAMIN W/MINERALS TABLET PO SCH (08:07)
[2020-11-11] MEDS: HEPARIN 5,000 UNIT/ML VIAL SUBQ SCH ×2 (08:08→21:27)
[2020-11-11] MEDS: NICOTINE 14 MG PATCH TOP SCH (08:08)
[2020-11-11] MEDS: NYSTATIN POWDER 15 GM TOP SCH ×2 (08:16→21:24)
[2020-11-11] MEDS ORDERED: FUROSEMIDE 40 MG TABLET PO SCH (09:00)
--- NOTE | 2020-11-11 12:52 | PROVIDER PROGRESS NOTE ---
Subjective - Prog Note Date Prog Note Date: 11/11/20 - Subjective Pt reports feeling: Improved Subjective: She continues to report feeling better compared to admission. She will have occasional shortness of breath with exertion but this is improved. Has a nonproductive cough. She has been able to ambulate in the room and is eager to increase her activity. Current Medications - Current Medications Current Medications: Active Medications Acetaminophen (Acetaminophen 325 Mg Tablet) 650 mg PO Q4HR PRN PRN Reason: Pain 1 to 4 Last Admin: 11/10/20 20:47 Dose: 650 mg Documented by: Albuterol/Ipratropium (Ipratropium/Albuterol 3 Ml Neb) 3 ml INH Q4HR PRN PRN Reason: Wheezing Last Admin: 11/08/20 03:58 Dose: 3 ml Documented by: Atorvastatin Calcium (Atorvastatin 10 Mg Tablet) 20 mg PO QPM KEESHA Diphenhydramine HCl (Diphenhydramine 25 Mg Capsule) 25 mg PO Q4HR PRN PRN Reason: Allergy Symptoms Last Admin: 11/09/20 19:37 Dose: 25 mg Documented by: Furosemide (Furosemide 40 Mg Tablet) 40 mg PO DAILY [facility] Last Admin: 11/11/20 08:07 Dose: 40 mg Documented by: Guaifenesin/Codeine Phosphate (Guaifenesin/Codeine 5 Ml Udc) 5 ml PO Q6HR PRN PRN Reason: Cough Last Admin: 11/11/20 08:07 Dose: 5 ml Documented by: Heparin Sodium (Porcine) (Heparin 5,000 Unit/Ml Vial) 5,000 unit SUBQ BID [facility] Last Admin: 11/11/20 08:08 Dose: 5,000 unit Documented by: Metoprolol Succinate (Metoprolol Succinate 25 Mg Tablet) 25 mg PO DAILY [facility] Last Admin: 11/11/20 08:06 Dose: 25 mg Documented by: Multivitamins/Minerals (Multivitamin W/Minerals Tablet) 1 tab PO DAILYWM [facility] Last Admin: 11/11/20 08:07 Dose: 1 tab Documented by: Nicotine (Nicotine 14 Mg Patch) 1 patch TOP DAILY [facility] Last Admin: 11/11/20 08:08 Dose: 1 patch Documented by: Nystatin (Nystatin Powder 15 Gm) 1 applic TOP BID [facility] Last Admin: 11/11/20 08:16 Dose: 1 applic Documented by: Sodium Chloride (Sodium Chloride Flush 0.9% 10 Ml Syringe) 10 ml IVP PRN PRN PRN Reason: NEEDED PER PROVIDER ORDERS Last Admin: 11/10/20 05:26 Dose: 10 ml Documented by: Sodium Chloride (Sodium Chloride Flush 0.9% 10 Ml Syringe) 10 ml IVP 0100,0900,1700 KEESHA Last Admin: 11/11/20 08:07 Dose: 10 ml Documented by: Zolpidem Tartrate (Zolpidem 5 Mg Tablet) 5 mg PO QPM PRN PRN Reason: Insomnia Last Admin: 11/10/20 21:31 Dose: 5 mg Documented by: Atorvastatin [Lipitor] 20 mg PO QPM 08/28/14 Spironolactone 50 mg DAILY 08/28/14 Cholecalciferol [Vitamin D3] 3 cap PO DAILY 11/05/20 Vit A/Vit C/Vit E/Zinc/Copper [Preservision Areds Softgel] 1 each PO DAILY 11/05/20 Objective - Vital Signs/Intake & Output Reviewed Vital Signs: Yes Vital Signs: Vital Signs x48h Temp Pulse Pulse Resp BP Pulse Ox 11/11/20 11:18 36.4 C L 62 20 109/59 L 91 L 11/11/20 09:30 62 18 11/11/20 08:05 36.4 C L 79 18 122/74 90 L 11/11/20 05:55 36.5 C 74 18 122/72 91 L Intake & Output: Intake & Output 11/08/20 11/09/20 11/10/20 11/11/20 23:59 23:59 23:59 23:59 Intake Total 540 810 200 960 Output Total 975 325 500 Balance 540 165 -125 460 - Objective General Appearance: positive: No acute distress, Alert Eyes Bilateral: positive: Normal inspection, Conjunctivae nml ENT: positive: ENT inspection nml Neck: positive: Nml inspection Respiratory: positive: No respiratory distress, Other (Diminished in the bases.). negative: Wheezes, Rales Cardiovascular: positive: Regular rate & rhythm, Systolic murmur. negative: Tachycardia Abdomen: positive: Non-tender, No distention. negative: Tenderness, Guarding, Rebound Skin: positive: Warm, Dry Extremities: positive: Pedal edema (+1 to +2 pitting edema in the bilateral lower extremities) Neurologic/Psychiatric: negative: Disoriented to person, Disoriented to place - Lab Results Fish Bones: 11/12/20 07:45 11/12/20 07:45 Assessment/Plan - Problem List (1) Acute on chronic heart failure with reduced ejection fraction and diastolic dysfunction Impression: Darrin revealed an ejection fraction of 40 to 45%. No regional wall motion abnormalities. Grade 1 diastolic dysfunction was noted. Her BNP was about 4000 on admission and it has improved less than 1700. She is no longer hypoxic and although she still has lower extremity edema, this is improved. Her BUN and creatinine have been increasing and I suspect she has received enough IV diuresis. We will place her on oral Lasix today and monitor her over next 24 hours. If she remains stable from a respiratory standpoint then she may be discharged home tomorrow. We will continue her on Toprol given the heart failure. We are holding lisinopril and Spirinolactone given her LAVELL/CKD. (2) Abnormal stress test Impression: Her stress test yesterday revealed a small, very mild, reversible septal apical perfusion defect. This finding was discussed with the patient and her daughter. I discussed the concern for underlying heart disease and that this may be contributing to her heart failure. We discussed options that may include medical therapy alone versus more aggressive measures such as an angiogram for potential intervention. We discussed the potential risks of this given her chronic kidney disease although her renal function has been relatively stable with a creatinine around 1.5-1.8. The patient preferred to have her children make the decision for her. I discussed this with the patient's daughter who will speak with her siblings and get back to me later today about how they wish to proceed. I informed them that based off of their decision, I can contact cardiology at [facility] in [place] to see if transfer for angiogram is warrante d or just to have the patient follow-up on an outpatient basis. We will start the patient on aspirin 81 mg and continue Lipitor and beta-joanna. (3) Acute kidney injury superimposed on CKD Impression: Her baseline creatinine is approximately 1.4 and she presented with a creatinine of 1.7. This was as low as 1.5 yesterday and this morning it is 1.8. Suspect the increase in her creatinine is likely due to diuresis as her BUN is also increasing. Although, she was receiving Solu-Medrol which also may be contributing to the elevated BUN. Given her overall improvement in her dyspnea. We will switch her to oral Lasix and monitor her renal function. (4) V-tach Impression: She has had intermittent runs of nonsustained ventricular tachycardia. This was felt to be related to her electrolytes in a patient with a depressed ejection fraction. We will continue Toprol. (5) Pleural effusion Impression: She had a thoracentesis on November 06 with about 1 L of fluid removed. This is believed to be secondary to heart failure. Cytology was negative for malignant cells. Culture had no growth. We will continue with diuresis. (6) Hypertension Impression: Her blood pressure is well controlled on Toprol and Lasix. (7) Tobacco abuse Impression: We will continue the nicotine patch while she is hospitalized. She was counseled once again on the importance of tobacco cessation given the likelihood of underlying heart disease and the fact that she also likely has underlying COPD/emphysema
[2020-11-11] MEDS: ASPIRIN EC 81 MG TABLET PO SCH (13:14)
[2020-11-11] MEDS: CETIRIZINE 10 MG TABLET PO SCH (16:21)
[2020-11-11] MEDS: FLUTICASONE NASAL SPRAY NAS SCH (16:21)
[2020-11-11] MEDS: ATORVASTATIN 10 MG TABLET PO SCH (21:24)
[2020-11-11] MEDS: ZOLPIDEM 5 MG TABLET PO PRN (21:24)
[2020-11-12] MEDS: SODIUM CHLORIDE FLUSH 0.9% 10 ML SYRINGE IVP SCH ×4 (00:27→23:39)
[2020-11-12 07:56] LABS: BASOPHILS % (AUTO) 0.1 %; HCT - HEMATOCRIT 39.1 % (37.0-47.0); HGB - HEMOGLOBIN 13.1 g/dL (12.0-16.0); LYMPHOCYTES # (AUTO) 1.1 10^3/uL (1.5-3.5); LYMPHOCYTES % (AUTO) 10.9 %; MEAN CORPUSCULAR HEMOGLOBIN 29.4 pg (27.0-31.0); MEAN CORPUSCULAR HGB CONC 33.5 g/dL (32.0-36.0); MEAN CORPUSCULAR VOLUME 87.9 fL (81.0-99.0); MEAN PLATELET VOLUME 9.9 fL (7.9-10.8); NEUTROPHILS # (AUTO) 8.2 10^3/uL (1.5-6.6); NEUTROPHILS % (AUTO) 78.4 %; PLT - PLATELET COUNT 206 10^3/uL (130-450); RED BLOOD COUNT 4.45 10^6/uL (4.20-5.40); RED CELL DISTRIBUTION WIDTH 14.2 % (12.0-15.0); WHITE BLOOD COUNT 10.4 x10^3/uL (4.8-10.8)
[2020-11-12 08:25] LABS: CREATININE 1.7 mg/dL (0.4-1.0); MAGNESIUM 1.9 mg/dL (1.7-2.8)
[2020-11-12] MEDS ORDERED: LACTATED RINGERS 500 ML IV ONE (08:37)
[2020-11-12] MEDS: METOPROLOL SUCCINATE 25 MG TABLET PO SCH (09:11)
[2020-11-12] MEDS: ASPIRIN EC 81 MG TABLET PO SCH (09:11)
[2020-11-12] MEDS: NICOTINE 14 MG PATCH TOP SCH (09:12)
[2020-11-12] MEDS: CETIRIZINE 10 MG TABLET PO SCH (09:12)
[2020-11-12] MEDS: MULTIVITAMIN W/MINERALS TABLET PO SCH (09:12)
[2020-11-12] MEDS: HEPARIN 5,000 UNIT/ML VIAL SUBQ SCH ×2 (09:13→20:39)
[2020-11-12] MEDS: FLUTICASONE NASAL SPRAY NAS SCH (09:14)
[2020-11-12] MEDS: NYSTATIN POWDER 15 GM TOP SCH ×2 (09:18→20:35)
[2020-11-12] MEDS ORDERED: FUROSEMIDE 40 MG/4 ML VIAL IVP SCH (10:00)
[2020-11-12] MEDS: SODIUM CHLORIDE FLUSH 0.9% 10 ML SYRINGE IVP PRN (10:23)
[2020-11-12] MEDS: guaiFENesin/CODEINE 5 ML UDC PO PRN ×2 (10:28→20:32)
[2020-11-12] MEDS: IPRATROPIUM/ALBUTEROL 3 ML NEB INH PRN (10:42)
--- NOTE | 2020-11-12 10:49 | Ultrasound Report ---
PROCEDURE: Duplex Ext Veins Bilateral INDICATIONS: BEV YOUSEF TECHNIQUE: Real-time imaging, as well as color and pulse Doppler interrogation, were performed of the deep veins of both legs from the inguinal ligament to the popliteal fossa. COMPARISON: None FINDINGS: The deep veins are normally compressible, and free of intraluminal thrombus. Color and pu lse Doppler demonstrate normal phasic intravascular flow. There is normal augmentation response to d istal compression maneuver. IMPRESSION: No DVT found bilaterally over the lower extremities. Reviewed by: Rg Jeffery MD on 11/12/2020 10:48 AM PDT Approved by: Rg Jeffery MD on 11/12/2020 10:48 AM PDT Station ID: [id number]
--- NOTE | 2020-11-12 14:16 | DISCHARGE SUMMARY ---
"Discharge Summary Admit Date: 11/05/20 Discharge Date: 11/12/20 Discharging Provider: Rodríguez Pandey Primary Care Provider: Devaughn Brantley Code Status: Attempt Resuscitation Condition at Discharge: Stable Discharge Disposition: 02 Transfer Acute Care Hosp Discharge Facility Name: [facility] - DIAGNOSES Admission Diagnoses: CHF exacerbation Pleural effusion Elevated troponin Acute renal failure Tobacco abuse Hypertension Discharge Diagnoses with Status of Each Condition: Acute on chronic heart failure with reduced ejection fraction - ongoing. Abnormal stress test - ongoing. Acute kidney injury superimposed on CKD - ongoing. Nonsustained vertical tachycardia - resolved. Left pleural effusion - improved. Hypertension - stable. Tobacco abuse - stable. - HPI History of Present Illness: H&P per Dr. Wilder on 11/05/20: Patient is an 80-year-old female with medical history significant for hypertension, macular degeneration and an active tobacco user (cigarettes) Scented to the ED via EMS with complaint of dyspnea which is worse on exertion and significant lower extremity edema. Her symptoms have been going on for the past 3 to 4 weeks but got significantly worse over the past week. Yesterday she went to the [facility] where lab work was done. She was prescribed Lasix and spironolactone but has not taken any of it since prescription. Her son-in-law checked on her this morning and called EMS when they noticed she was significantly dyspneic. In the ED she was found to have a 2-3+ lower extremity edema c. her BNP was 3900 and troponin of 39. She has been experiencing a whitish productive cough. She denied any previous occurrence of similar symptoms. She denied any history of cardiac disease. She denies chest pain, abdominal pain, nausea, vomiting, fever or chills. She lives alone but her family lives down the same street from her. She gets around her house using a walker however this has been difficult to do lately. She is wolfgang rly independent of activities of daily living. As a result of her clinical presentation and lab findings, she was presented for admission for further treatment. - CONSULTS | PROCEDURES Consultations: PT Procedures: Echocardiogram on November 06 revealed an ejection fraction of 40 to 45%. Grade 1 diastolic dysfunction. No regional wall motion abnormalities. Mild right ventricular enlargement. Moderate mixed etiology mitral vegetation. Moderately abnormal right heart pressures. RVSP at rest is 53 mmHg. Large size left pleural effusion. Repeat limited echocardiogram on November 10 revealed an ejection fraction of 40 to 45%. No evidence of an anteroseptal left ventricular aneurysm. Lexiscan pharmaceutical stress test with nuclear myocardial perfusion imaging was obtained on November 10. Her resting EKG was normal sinus rhythm with PACs, PVCs, and LVH with strain. [address] elevation in V1 through V4 with inverted T waves in the same leads, plus biphasic T waves in V5 and V6. No new ST segment or T wave changes develop with pharmaceutical stress. Summary: Abnormal resting EKG. No ischemic changes develop by EKG criteria, however, the baseline electrocardiogram is already abnormal, has left ventricular hypertrophy strain pattern. Nuclear images were reported separately and showed small, apical septal reversible perfusion defect consistent with ischemia, depressed LVEF of 49%. - HOSPITAL COURSE Hospital Course: The patient was admitted for acute hypoxic respiratory failure secondary to suspected CHF. An echocardiogram was obtained which revealed an ejection fraction of 40 to 45% with grade 1 diastolic dysfunction. No regional wall motion normalities were seen. She also had a large left pleural effusion and she underwent a thoracentesis on November 06 with 1 L of fluid removed. Pleural fluid studies revealed that this was transudative. Culture had no growth. Cytology was negative. It was felt that this effusion was related to her heart failure. She was diuresed with Lasix 20 mg IV twice daily. BNP was nearly 4000 on admission and on day of transfer, this has decreased to 1842. On admission were also flat ranging from 39-69, this is the high sensitivity troponin. On the evening of November 07, she had a 12 beat run of monomorphic ventricular tachycardia. Repeat EKG showed a sinus rhythm with frequent PACs, LVH and ST elevations in V1 through V4 as well as T wave inversions and V1 through V5. There was concern that there may be an LV aneurysm present and so a repeat echocardiogram was obtained which showed an ejection fraction remained stable at 40 to 45% and there was no evidence of an LV aneurysm. Troponins were also checked and they also remained flat in the 50s. The patient did not have chest pain throughout this hospitalization. It was felt that her ongoing dyspnea may have been related to COPD given her significant smoking history and so she was trialed on Solu-Medrol 40 mg IV 3 times daily. He also underwent a Lexiscan pharmaceutical stress test on the . This was delayed as we do not have stress test available over the weekend. The myocardial perfusion images were concerning for small, mild reversible septal apical perfusion defect suspicious for myocardial ischemia. This was also felt that it may be related to breast attenuation and shifting breast artifact but the patient does have a history of bilateral mastectomy. The stress test findings were discussed with the patient and her family and they discussed over next 24 hours if they would want to consider cardiology consultation to see if an angiogram would be warranted given her presentation. As we waited for their decision, she continued to be diuresed with IV Lasix. Her creatinine had remained stable from 1.5-1.8. Her BUN had increased each day from the 20s to as high as the 60s. The Solu-Medrol was discontinued as it was felt she was not having a COPD exacerbation and this may have also contributed to her elevated BUN. Given her BNP had been decreasing and she was no longer hypoxic, we did try her on oral Lasix on the especially given her BUN had been climbing. Although her dyspnea had improved, she still had significant lower extremity edema and this progressed the following day and she was placed back on IV Lasix. At this point in time, the family was agreeable to transfer for cardiology evaluation. I spoke with the [facility] transfer center and spoke with the truss puller helper for [facility] who felt that transfer would be reasonable. They did mention that an inpatient angiogram might not necessarily be obtained as this is usually done on an outpatient basis unless the patient is having ongoing symptoms. Nonetheless, the truss puller helper did state that transfer will still be warranted if family would like to proceed. I spoke with the patient and her daughter regarding this and the fact that an angiogram might not be obtained. After further discussion, they were still agreeable to transfer. I spoke with Dr. Umana of the hospitalist service at [facility] in [place] who graciously excepted the patient in transfer. - ALLERGIES Allergies/Adverse Reactions: Allergies Allergy/AdvReac Type Severity Reaction Status Date / Time lisinopril AdvReac Respiratory Verified 11/05/20 09:47 - MEDICATIONS Home Medications: Ambulatory Orders Medication Instructions Recorded Confirmed Atorvastatin [Lipitor] 20 mg PO QPM 08/28/14 11/07/20 Spironolactone 50 mg DAILY 08/28/14 11/05/20 Furosemide [Lasix] 20 mg PO DAILY #7 tablet 03/14/19 11/05/20 Cholecalciferol [Vitamin D3] 3 cap PO DAILY 11/05/20 11/05/20 Vit A/Vit C/Vit E/Zinc/Copper 1 each PO DAILY 11/05/20 11/07/20 [Preservision Areds Softgel] - PHYSICAL EXAM AT DISCHARGE General Appearance: positive: No acute distress, Alert Eyes Bilateral: positive: Normal inspection, Conjunctivae nml ENT: positive: ENT inspection nml Neck: positive: Nml inspection Respiratory: positive: No respiratory distress, Rales, Other (Diminshed in bases.). negative: Wheezes Cardiovascular: positive: Regular rate & rhythm. negative: Irregularly irregular, Tachycardia, Systolic murmur Abdomen: positive: Non-tender, No distention. negative: Tenderness Skin: positive: Warm, Dry Extremities: positive: Pedal edema (+2 pitting edema in bilateral lower extremities.) Neurologic/Psychiatric: positive: Motor nml. negative: Disoriented to person, Disoriented to place Physical Exam Other/Comments: Vital Signs - 24 hr 11/11/20 11/11/20 11/12/20 15:52 20:30 00:21 Temperature 36.6 C 36.4 C L 36.3 C L Heart Rate Heart Rate [ 64 67 60 Brachial] Respiratory 18 18 16 Rate Blood Pressure [Left Brachial artery] Blood Pressure 106/72 113/74 139/78 H [Right Brachial artery] O2 Saturation 94 93 93 11/12/20 11/12/20 11/12/20 05:00 08:07 10:42 Temperature 36.5 C 36.3 C L Heart Rate 58 L Heart Rate [ 62 56 L Brachial] Respiratory 18 18 16 Rate Blood Pressure 138/84 H 126/78 [Left Brachial artery] Blood Pressure [Right Brachial artery] O2 Saturation 92 94 11/12/20 13:00 Temperature 36.4 C L Heart Rate Heart Rate [ 61 Brachial] Respiratory 24 Rate Blood Pressure 110/61 [Left Brachial artery] Blood Pressure [Right Brachial artery] O2 Saturation 94 Oxygen O2 Source [With Activity] Nasal cannula O2 Source Room air Oxygen Flow Rate 2 - LABS Result Diagrams: 11/12/20 07:45 11/12/20 07:45 Other Lab Results: Laboratory Tests 11/05/20 11/05/20 11/05/20 10:07 10:12 10:12 WBC 7.6 RBC 4.12 L Hgb 12.0 Hct 36.9 L MCV 89.6 MCH 29.1 MCHC 32.5 RDW 14.7 Plt Count 207 MPV 9.8 Neut # (Auto) 6.4 Lymph # (Auto) 0.8 L [place] # (Auto) 0.3 Eos # (Auto) 0.0 Baso # (Auto) 0.0 Absolute Nucleated RBC 0.00 Band Neuts % (Manual) Abnorm Lymph % (Manual) Nucleated RBC % 0.0 Neutrophils # (Manual) Lymphocytes # (Manual) Monocytes # (Manual) Eosinophils # (Manual) Basophils # (Manual) Differential Comment Manual Slide Review Platelet Estimate Platelet Morphology RBC Morph Micro Appear PT INR Sodium 134 L Potassium 4.1 Chloride 100 L Carbon Dioxide 23 Anion Gap 11.0 BUN 19 Creatinine 1.7 H Estimated GFR (MDRD) 29 L Glucose 115 H Calcium 8.8 Phosphorus Magnesium 1.6 L Total Bilirubin 0.9 AST 20 ALT 18 Alkaline Phosphatase 84 Troponin I High Sens B-Natriuretic Peptide Total Protein 6.0 L Albumin 3.1 L Globulin 2.9 Albumin/Globulin Ratio 1.1 Lipase 35 TSH Fluid Source Fluid Color Fluid Clarity Fluid WBC Fluid RBC Fluid Neutrophils % Fluid Lymphocytes % Fluid Macrophages % Nasal Adenovirus (PCR) NOT DETECTED Nasal B. parapertussis DNA (PCR) NOT DETECTED Nasal Coronavir 229E PCR NOT DETECTED Nasal Coronavir HKU1 PCR NOT DETECTED Nasal Coronavir NL63 PCR NOT DETECTED Nasal Coronavir OC43 PCR NOT DETECTED Nasal Enterovir/Rhinovir PCR NOT DETECTED Nasal Influenza B PCR NOT DETECTED Nasal Influenza A PCR NOT DETECTED Nasal Parainfluen 1 PCR NOT DETECTED Nasal Parainfluen 2 PCR NOT DETECTED Nasal Parainfluen 3 PCR NOT DETECTED Nasal Parainfluen 4 PCR NOT DETECTED Nasal RSV (PCR) NOT DETECTED Nasal B.pertussis DNA PCR NOT DETECTED Nasal C.pneumoniae (PCR) NOT DETECTED Roberto Human Metapneumo PCR NOT DETECTED Nasal M.pneumoniae (PCR) NOT DETECTED Nasal SARS-CoV-2 (PCR) NOT DETECTED Ref Lab Test Result 11/05/20 11/05/20 11/05/20 10:12 10:12 10:12 WBC RBC Hgb Hct MCV MCH MCHC RDW Plt Count MPV Neut # (Auto) Lymph # (Auto) [place] # (Auto) Eos # (Auto) Baso # (Auto) Absolute Nucleated RBC Band Neuts % (Manual) Abnorm Lymph % (Manual) Nucleated RBC % Neutrophils # (Manual) Lymphocytes # (Manual) Monocytes # (Manual) Eosinophils # (Manual) Basophils # (Manual) Differential Comment Manual Slide Review Platelet Estimate Platelet Morphology RBC Morph Micro Appear PT INR Sodium Potassium Chloride Carbon Dioxide Anion Gap BUN Creatinine Estimated GFR (MDRD) Glucose Calcium Phosphorus Magnesium Total Bilirubin AST ALT Alkaline Phosphatase Troponin I High Sens 39.2 H* B-Natriuretic Peptide 3977 H Total Protein Albumin Globulin Albumin/Globulin Ratio Lipase TSH 4.32 Fluid Source Fluid Color Fluid Clarity Fluid WBC Fluid RBC Fluid Neutrophils % Fluid Lymphocytes % Fluid Macrophages % Nasal Adenovirus (PCR) Nasal B. parapertussis DNA (PCR) Nasal Coronavir 229E PCR Nasal Coronavir HKU1 PCR Nasal Coronavir NL63 PCR Nasal Coronavir OC43 PCR Nasal Enterovir/Rhinovir PCR Nasal Influenza B PCR Nasal Influenza A PCR Nasal Parainfluen 1 PCR Nasal Parainfluen 2 PCR Nasal Parainfluen 3 PCR Nasal Parainfluen 4 PCR Nasal RSV (PCR) Nasal B.pertussis DNA PCR Nasal C.pneumoniae (PCR) Roberto Human Metapneumo PCR Nasal M.pneumoniae (PCR) Nasal SARS-CoV-2 (PCR) Ref Lab Test Result 11/05/20 11/05/20 11/06/20 16:00 21:49 04:45 WBC 8.9 RBC 4.10 L Hgb 11.9 L Hct 36.8 L MCV 89.8 MCH 29.0 MCHC 32.3 RDW 14.6 Plt Count 188 MPV 9.9 Neut # (Auto) 7.3 H Lymph # (Auto) 1.0 L [place] # (Auto) 0.5 Eos # (Auto) 0.0 Baso # (Auto) 0.0 Absolute Nucleated RBC 0.00 Band Neuts % (Manual) Abnorm Lymph % (Manual) Nucleated RBC % 0.0 Neutrophils # (Manual) Lymphocytes # (Manual) Monocytes # (Manual) Eosinophils # (Manual) Basophils # (Manual) Differential Comment Manual Slide Review Platelet Estimate Platelet Morphology RBC Morph Micro Appear PT INR Sodium Potassium Chloride Carbon Dioxide Anion Gap BUN Creatinine Estimated GFR (MDRD) Glucose Calcium Phosphorus Magnesium Total Bilirubin AST ALT Alkaline Phosphatase Troponin I High Sens 49.4 H* 69.7 H* B-Natriuretic Peptide Total Protein Albumin Globulin Albumin/Globulin Ratio Lipase TSH Fluid Source Fluid Color Fluid Clarity Fluid WBC Fluid RBC Fluid Neutrophils % Fluid Lymphocytes % Fluid Macrophages % Nasal Adenovirus (PCR) Nasal B. parapertussis DNA (PCR) Nasal Coronavir 229E PCR Nasal Coronavir HKU1 PCR Nasal Coronavir NL63 PCR Nasal Coronavir OC43 PCR Nasal Enterovir/Rhinovir PCR Nasal Influenza B PCR Nasal Influenza A PCR Nasal Parainfluen 1 PCR Nasal Parainfluen 2 PCR Nasal Parainfluen 3 PCR Nasal Parainfluen 4 PCR Nasal RSV (PCR) Nasal B.pertussis DNA PCR Nasal C.pneumoniae (PCR) Roberto Human Metapneumo PCR Nasal M.pneumoniae (PCR) Nasal SARS-CoV-2 (PCR) Ref Lab Test Result 11/06/20 11/06/20 11/06/20 04:45 04:45 12:01 WBC RBC Hgb Hct MCV MCH MCHC RDW Plt Count MPV Neut # (Auto) Lymph # (Auto) [place] # (Auto) Eos # (Auto) Baso # (Auto) Absolute Nucleated RBC Band Neuts % (Manual) Abnorm Lymph % (Manual) Nucleated RBC % Neutrophils # (Manual) Lymphocytes # (Manual) Monocytes # (Manual) Eosinophils # (Manual) Basophils # (Manual) Differential Comment Manual Slide Review Platelet Estimate Platelet Morphology RBC Morph Micro Appear PT 12.3 INR 1.1 Sodium 134 L Potassium 3.5 Chloride 98 L Carbon Dioxide 26 Anion Gap 10.0 BUN 23 H Creatinine 1.7 H Estimated GFR (MDRD) 29 L Glucose 100 Calcium 8.3 L Phosphorus Magnesium Total Bilirubin AST ALT Alkaline Phosphatase Troponin I High Sens B-Natriuretic Peptide Total Protein Albumin Globulin Albumin/Globulin Ratio Lipase TSH Fluid Source Fluid Color Fluid Clarity Fluid WBC Fluid RBC Fluid Neutrophils % Fluid Lymphocytes % Fluid Macrophages % Nasal Adenovirus (PCR) Nasal B. parapertussis DNA (PCR) Nasal Coronavir 229E PCR Nasal Coronavir HKU1 PCR Nasal Coronavir NL63 PCR Nasal Coronavir OC43 PCR Nasal Enterovir/Rhinovir PCR Nasal Influenza B PCR Nasal Influenza A PCR Nasal Parainfluen 1 PCR Nasal Parainfluen 2 PCR Nasal Parainfluen 3 PCR Nasal Parainfluen 4 PCR Nasal RSV (PCR) Nasal B.pertussis DNA PCR Nasal C.pneumoniae (PCR) Roberto Human Metapneumo PCR Nasal M.pneumoniae (PCR) Nasal SARS-CoV-2 (PCR) Ref Lab Test Result REPORT 11/06/20 11/06/20 11/06/20 12:01 12:01 12:01 WBC RBC Hgb Hct MCV MCH MCHC RDW Plt Count MPV Neut # (Auto) Lymph # (Auto) [place] # (Auto) Eos # (Auto) Baso # (Auto) Absolute Nucleated RBC Band Neuts % (Manual) Abnorm Lymph % (Manual) Nucleated RBC % Neutrophils # (Manual) Lymphocytes # (Manual) Monocytes # (Manual) Eosinophils # (Manual) Basophils # (Manual) Differential Comment Manual Slide Review Platelet Estimate Platelet Morphology RBC Morph Micro Appear PT INR Sodium Potassium Chloride Carbon Dioxide Anion Gap BUN Creatinine Estimated GFR (MDRD) Glucose Calcium Phosphorus Magnesium Total Bilirubin AST ALT Alkaline Phosphatase Troponin I High Sens B-Natriuretic Peptide Total Protein Albumin Globulin Albumin/Globulin Ratio Lipase TSH Fluid Source Fluid Color Fluid Clarity Fluid WBC Fluid RBC Fluid Neutrophils % Fluid Lymphocytes % Fluid Macrophages % Nasal Adenovirus (PCR) Nasal B. parapertussis DNA (PCR) Nasal Coronavir 229E PCR Nasal Coronavir HKU1 PCR Nasal Coronavir NL63 PCR Nasal Coronavir OC43 PCR Nasal Enterovir/Rhinovir PCR Nasal Influenza B PCR Nasal Influenza A PCR Nasal Parainfluen 1 PCR Nasal Parainfluen 2 PCR Nasal Parainfluen 3 PCR Nasal Parainfluen 4 PCR Nasal RSV (PCR) Nasal B.pertussis DNA PCR Nasal C.pneumoniae (PCR) Roberto Human Metapneumo PCR Nasal M.pneumoniae (PCR) Nasal SARS-CoV-2 (PCR) Ref Lab Test Result REPORT REPORT REPORT 11/06/20 11/07/20 11/07/20 12:01 04:50 04:50 WBC 8.1 RBC 4.29 Hgb 12.5 Hct 37.9 MCV 88.3 MCH 29.1 MCHC 33.0 RDW 14.6 Plt Count 191 MPV 9.4 Neut # (Auto) 6.5 Lymph # (Auto) 1.0 L [place] # (Auto) 0.5 Eos # (Auto) 0.0 Baso # (Auto) 0.1 Absolute Nucleated RBC 0.00 Band Neuts % (Manual) Abnorm Lymph % (Manual) Nucleated RBC % 0.0 Neutrophils # (Manual) Lymphocytes # (Manual) Monocytes # (Manual) Eosinophils # (Manual) Basophils # (Manual) Differential Comment Manual Slide Review Platelet Estimate Platelet Morphology RBC Morph Micro Appear PT INR Sodium 137 Potassium 3.4 L Chloride 98 L Carbon Dioxide 29 Anion Gap 10.0 BUN 30 H Creatinine 1.9 H Estimated GFR (MDRD) 25 L Glucose 104 H Calcium 8.6 Phosphorus Magnesium Total Bilirubin AST ALT Alkaline Phosphatase Troponin I High Sens B-Natriuretic Peptide Total Protein Albumin Globulin Albumin/Globulin Ratio Lipase TSH Fluid Source PLEURAL Fluid Color YELLOW Fluid Clarity CLEAR Fluid WBC 169 Fluid RBC < 3000 Fluid Neutrophils % 48 Fluid Lymphocytes % 22 Fluid Macrophages % 31 Nasal Adenovirus (PCR) Nasal B. parapertussis DNA (PCR) Nasal Coronavir 229E PCR Nasal Coronavir HKU1 PCR Nasal Coronavir NL63 PCR Nasal Coronavir OC43 PCR Nasal Enterovir/Rhinovir PCR Nasal Influenza B PCR Nasal Influenza A PCR Nasal Parainfluen 1 PCR Nasal Parainfluen 2 PCR Nasal Parainfluen 3 PCR Nasal Parainfluen 4 PCR Nasal RSV (PCR) Nasal B.pertussis DNA PCR Nasal C.pneumoniae (PCR) Roberto Human Metapneumo PCR Nasal M.pneumoniae (PCR) Nasal SARS-CoV-2 (PCR) Ref Lab Test Result 11/07/20 11/07/20 11/07/20 08:07 08:07 18:49 WBC RBC Hgb Hct MCV MCH MCHC RDW Plt Count MPV Neut # (Auto) Lymph # (Auto) [place] # (Auto) Eos # (Auto) Baso # (Auto) Absolute Nucleated RBC Band Neuts % (Manual) Abnorm Lymph % (Manual) Nucleated RBC % Neutrophils # (Manual) Lymphocytes # (Manual) Monocytes # (Manual) Eosinophils # (Manual) Basophils # (Manual) Differential Comment Manual Slide Review Platelet Estimate Platelet Morphology RBC Morph Micro Appear PT INR Sodium 136 Potassium 3.5 Chloride 98 L Carbon Dioxide 28 Anion Gap 10.0 BUN 32 H Creatinine 1.7 H Estimated GFR (MDRD) 29 L Glucose 145 H Calcium 8.2 L Phosphorus 2.9 Magnesium 1.3 L Total Bilirubin AST ALT Alkaline Phosphatase Troponin I High Sens 58.5 H* B-Natriuretic Peptide 2496 H Total Protein Albumin Globulin Albumin/Globulin Ratio Lipase TSH Fluid Source Fluid Color Fluid Clarity Fluid WBC Fluid RBC Fluid Neutrophils % Fluid Lymphocytes % Fluid Macrophages % Nasal Adenovirus (PCR) Nasal B. parapertussis DNA (PCR) Nasal Coronavir 229E PCR Nasal Coronavir HKU1 PCR Nasal Coronavir NL63 PCR Nasal Coronavir OC43 PCR Nasal Enterovir/Rhinovir PCR Nasal Influenza B PCR Nasal Influenza A PCR Nasal Parainfluen 1 PCR Nasal Parainfluen 2 PCR Nasal Parainfluen 3 PCR Nasal Parainfluen 4 PCR Nasal RSV (PCR) Nasal B.pertussis DNA PCR Nasal C.pneumoniae (PCR) Roberto Human Metapneumo PCR Nasal M.pneumoniae (PCR) Nasal SARS-CoV-2 (PCR) Ref Lab Test Result 11/07/20 11/07/20 11/08/20 18:49 22:34 06:00 WBC 7.6 RBC 4.57 Hgb 13.2 Hct 40.1 MCV 87.7 MCH 28.9 MCHC 32.9 RDW 14.6 Plt Count 192 MPV 10.0 Neut # (Auto) 7.1 H Lymph # (Auto) 0.4 L [place] # (Auto) 0.1 Eos # (Auto) 0.0 Baso # (Auto) 0.0 Absolute Nucleated RBC 0.00 Band Neuts % (Manual) Abnorm Lymph % (Manual) Nucleated RBC % 0.0 Neutrophils # (Manual) Lymphocytes # (Manual) Monocytes # (Manual) Eosinophils # (Manual) Basophils # (Manual) Differential Comment Manual Slide Review Platelet Estimate Platelet Morphology RBC Morph Micro Appear PT INR Sodium Potassium Chloride Carbon Dioxide Anion Gap BUN Creatinine Estimated GFR (MDRD) Glucose Calcium Phosphorus Magnesium Total Bilirubin AST ALT Alkaline Phosphatase Troponin I High Sens 61.1 H* 57.3 H* B-Natriuretic Peptide Total Protein Albumin Globulin Albumin/Globulin Ratio Lipase TSH Fluid Source Fluid Color Fluid Clarity Fluid WBC Fluid RBC Fluid Neutrophils % Fluid Lymphocytes % Fluid Macrophages % Nasal Adenovirus (PCR) Nasal B. parapertussis DNA (PCR) Nasal Coronavir 229E PCR Nasal Coronavir HKU1 PCR Nasal Coronavir NL63 PCR Nasal Coronavir OC43 PCR Nasal Enterovir/Rhinovir PCR Nasal Influenza B PCR Nasal Influenza A PCR Nasal Parainfluen 1 PCR Nasal Parainfluen 2 PCR Nasal Parainfluen 3 PCR Nasal Parainfluen 4 PCR Nasal RSV (PCR) Nasal B.pertussis DNA PCR Nasal C.pneumoniae (PCR) Roberto Human Metapneumo PCR Nasal M.pneumoniae (PCR) Nasal SARS-CoV-2 (PCR) Ref Lab Test Result 11/08/20 11/08/20 11/09/20 06:00 06:00 05:45 WBC 9.9 RBC 4.14 L Hgb 12.3 Hct 36.5 L MCV 88.2 MCH 29.7 MCHC 33.7 RDW 14.5 Plt Count 190 MPV 9.9 Neut # (Auto) 9.2 H Lymph # (Auto) 0.5 L [place] # (Auto) 0.2 Eos # (Auto) 0.0 Baso # (Auto) 0.0 Absolute Nucleated RBC 0.00 Band Neuts % (Manual) Abnorm Lymph % (Manual) Nucleated RBC % 0.0 Neutrophils # (Manual) Lymphocytes # (Manual) Monocytes # (Manual) Eosinophils # (Manual) Basophils # (Manual) Differential Comment Manual Slide Review Platelet Estimate Platelet Morphology RBC Morph Micro Appear PT INR Sodium 137 Potassium 4.0 Chloride 98 L Carbon Dioxide 28 Anion Gap 11.0 BUN 33 H Creatinine 1.6 H Estimated GFR (MDRD) 31 L Glucose 124 H Calcium 8.6 Phosphorus Magnesium 1.9 Total Bilirubin AST ALT Alkaline Phosphatase Troponin I High Sens B-Natriuretic Peptide Total Protein Albumin Globulin Albumin/Globulin Ratio Lipase TSH Fluid Source Fluid Color Fluid Clarity Fluid WBC Fluid RBC Fluid Neutrophils % Fluid Lymphocytes % Fluid Macrophages % Nasal Adenovirus (PCR) Nasal B. parapertussis DNA (PCR) Nasal Coronavir 229E PCR Nasal Coronavir HKU1 PCR Nasal Coronavir NL63 PCR Nasal Coronavir OC43 PCR Nasal Enterovir/Rhinovir PCR Nasal Influenza B PCR Nasal Influenza A PCR Nasal Parainfluen 1 PCR Nasal Parainfluen 2 PCR Nasal Parainfluen 3 PCR Nasal Parainfluen 4 PCR Nasal RSV (PCR) Nasal B.pertussis DNA PCR Nasal C.pneumoniae (PCR) Roberto Human Metapneumo PCR Nasal M.pneumoniae (PCR) Nasal SARS-CoV-2 (PCR) Ref Lab Test Result 11/09/20 11/09/20 11/10/20 05:45 05:45 05:45 WBC 8.5 RBC 4.32 Hgb 12.7 Hct 38.1 MCV 88.2 MCH 29.4 MCHC 33.3 RDW 14.4 Plt Count 207 MPV 9.6 Neut # (Auto) 7.8 H Lymph # (Auto) 0.4 L [place] # (Auto) 0.2 Eos # (Auto) 0.2 Baso # (Auto) 0.0 Absolute Nucleated RBC 0.00 Band Neuts % (Manual) Not Reportable Abnorm Lymph % (Manual) Not Reportable Nucleated RBC % 0.0 Neutrophils # (Manual) Not Reportable Lymphocytes # (Manual) Not Reportable Monocytes # (Manual) Not Reportable Eosinophils # (Manual) Not Reportable Basophils # (Manual) Not Reportable Differential Comment MANUAL=AUTO DIFF Manual Slide Review Indicated Platelet Estimate NORMAL (130-450,000) Platelet Morphology NORMAL APPEARANCE RBC Morph Micro Appear NORMAL APPEARANCE PT INR Sodium 132 L Potassium 3.8 Chloride 95 L Carbon Dioxide 28 Anion Gap 9.0 BUN 43 H Creatinine 1.5 H Estimated GFR (MDRD) 33 L Glucose 121 H Calcium 8.4 L Phosphorus Magnesium Total Bilirubin AST ALT Alkaline Phosphatase Troponin I High Sens B-Natriuretic Peptide 1913 H Total Protein Albumin Globulin Albumin/Globulin Ratio Lipase TSH Fluid Source Fluid Color Fluid Clarity Fluid WBC Fluid RBC Fluid Neutrophils % Fluid Lymphocytes % Fluid Macrophages % Nasal Adenovirus (PCR) Nasal B. parapertussis DNA (PCR) Nasal Coronavir 229E PCR Nasal Coronavir HKU1 PCR Nasal Coronavir NL63 PCR Nasal Coronavir OC43 PCR Nasal Enterovir/Rhinovir PCR Nasal Influenza B PCR Nasal Influenza A PCR Nasal Parainfluen 1 PCR Nasal Parainfluen 2 PCR Nasal Parainfluen 3 PCR Nasal Parainfluen 4 PCR Nasal RSV (PCR) Nasal B.pertussis DNA PCR Nasal C.pneumoniae (PCR) Roberto Human Metapneumo PCR Nasal M.pneumoniae (PCR) Nasal SARS-CoV-2 (PCR) Ref Lab Test Result 11/10/20 11/10/20 11/12/20 05:45 05:45 07:45 WBC 10.4 RBC 4.45 Hgb 13.1 Hct 39.1 MCV 87.9 MCH 29.4 MCHC 33.5 RDW 14.2 Plt Count 206 MPV 9.9 Neut # (Auto) 8.2 H Lymph # (Auto) 1.1 L [place] # (Auto) 1.0 Eos # (Auto) 0.0 Baso # (Auto) 0.0 Absolute Nucleated RBC 0.00 Band Neuts % (Manual) Abnorm Lymph % (Manual) Nucleated RBC % 0.0 Neutrophils # (Manual) Lymphocytes # (Manual) Monocytes # (Manual) Eosinophils # (Manual) Basophils # (Manual) Differential Comment Manual Slide Review Platelet Estimate Platelet Morphology RBC Morph Micro Appear PT INR Sodium 134 L Potassium 3.8 Chloride 96 L Carbon Dioxide 28 Anion Gap 10.0 BUN 55 H Creatinine 1.8 H Estimated GFR (MDRD) 27 L Glucose 108 H Calcium 8.8 Phosphorus Magnesium Total Bilirubin AST ALT Alkaline Phosphatase Troponin I High Sens B-Natriuretic Peptide 1762 H Total Protein Albumin Globulin Albumin/Globulin Ratio Lipase TSH Fluid Source Fluid Color Fluid Clarity Fluid WBC Fluid RBC Fluid Neutrophils % Fluid Lymphocytes % Fluid Macrophages % Nasal Adenovirus (PCR) Nasal B. parapertussis DNA (PCR) Nasal Coronavir 229E PCR Nasal Coronavir HKU1 PCR Nasal Coronavir NL63 PCR Nasal Coronavir OC43 PCR Nasal Enterovir/Rhinovir PCR Nasal Influenza B PCR Nasal Influenza A PCR Nasal Parainfluen 1 PCR Nasal Parainfluen 2 PCR Nasal Parainfluen 3 PCR Nasal Parainfluen 4 PCR Nasal RSV (PCR) Nasal B.pertussis DNA PCR Nasal C.pneumoniae (PCR) Roberto Human Metapneumo PCR Nasal M.pneumoniae (PCR) Nasal SARS-CoV-2 (PCR) Ref Lab Test Result 11/12/20 11/12/20 07:45 07:45 WBC RBC Hgb Hct MCV MCH MCHC RDW Plt Count MPV Neut # (Auto) Lymph # (Auto) [place] # (Auto) Eos # (Auto) Baso # (Auto) Absolute Nucleated RBC Band Neuts % (Manual) Abnorm Lymph % (Manual) Nucleated RBC % Neutrophils # (Manual) Lymphocytes # (Manual) Monocytes # (Manual) Eosinophils # (Manual) Basophils # (Manual) Differential Comment Manual Slide Review Platelet Estimate Platelet Morphology RBC Morph Micro Appear PT INR Sodium 136 Potassium 4.0 Chloride 94 L Carbon Dioxide 31 Anion Gap 11.0 BUN 63 H Creatinine 1.7 H Estimated GFR (MDRD) 29 L Glucose 90 Calcium 9.0 Phosphorus Magnesium 1.9 Total Bilirubin AST ALT Alkaline Phosphatase Troponin I High Sens B-Natriuretic Peptide 1842 H Total Protein Albumin Globulin Albumin/Globulin Ratio Lipase TSH Fluid Source Fluid Color Fluid Clarity Fluid WBC Fluid RBC Fluid Neutrophils % Fluid Lymphocytes % Fluid Macrophages % Nasal Adenovirus (PCR) Nasal B. parapertussis DNA (PCR) Nasal Coronavir 229E PCR Nasal Coronavir HKU1 PCR Nasal Coronavir NL63 PCR Nasal Coronavir OC43 PCR Nasal Enterovir/Rhinovir PCR Nasal Influenza B PCR Nasal Influenza A PCR Nasal Parainfluen 1 PCR Nasal Parainfluen 2 PCR Nasal Parainfluen 3 PCR Nasal Parainfluen 4 PCR Nasal RSV (PCR) Nasal B.pertussis DNA PCR Nasal C.pneumoniae (PCR) Roberto Human Metapneumo PCR Nasal M.pneumoniae (PCR) Nasal SARS-CoV-2 (PCR) Ref Lab Test Result - DIAGNOSTIC IMAGING Diagnostic Imaging Results: Final report reviewed Diagnostic Imaging Results Comments: Chest x-ray on November 05 showed a small to moderate left-sided pleural effusion with pulmonary edema. Chest x-ray on November 06 showed significant decrease in size of now small left pleural effusion after thoracentesis. Stable appearance of diffuse initial pr ominence which may be related to pulmonary edema versus infectious/inflammatory process. Chest x-ray on November 10 showed improving pulmonary edema. No pleural effusion or pneumothorax. No consolidation. Duplex on November 12 showed no evidence of DVT bilaterally over the lower extremities. - TIME SPENT Time Spent in Discharge (Minutes): 48"
--- NOTE | 2020-11-12 15:10 | PROVIDER PROGRESS NOTE ---
Subjective - Prog Note Date Prog Note Date: 11/12/20 - Subjective Subjective: She was able to ambulate a little more today. She did feel a little more short of breath compared to yesterday. She still has lower extremity edema and this is improved overall compared to admission. She denies any chest pain or cough. Current Medications - Current Medications Current Medications: Active Medications Acetaminophen (Acetaminophen 325 Mg Tablet) 650 mg PO Q4HR PRN PRN Reason: Pain 1 to 4 Last Admin: 11/10/20 20:47 Dose: 650 mg Documented by: Albuterol/Ipratropium (Ipratropium/Albuterol 3 Ml Neb) 3 ml INH Q4HR PRN PRN Reason: Wheezing Last Admin: 11/12/20 10:42 Dose: 3 ml Documented by: Aspirin (Aspirin Ec 81 Mg Tablet) 81 mg PO DAILY [facility] Last Admin: 11/12/20 09:11 Dose: 81 mg Documented by: Atorvastatin Calcium (Atorvastatin 10 Mg Tablet) 20 mg PO QPM [facility] Last Admin: 11/11/20 21:24 Dose: 20 mg Documented by: Cetirizine HCl (Cetirizine 10 Mg Tablet) 10 mg PO DAILY [facility] Last Admin: 11/12/20 09:12 Dose: 10 mg Documented by: Fluticasone Propionate (Fluticasone Nasal [place]) 1 sprays JULIETTE DAILY [facility] Last Admin: 11/12/20 09:14 Dose: 1 spr Documented by: Furosemide (Furosemide 40 Mg/4 Ml Vial) 40 mg IVP DAILY [facility] Last Admin: 11/12/20 10:23 Dose: 40 mg Documented by: Guaifenesin/Codeine Phosphate (Guaifenesin/Codeine 5 Ml Udc) 5 ml PO Q6HR PRN PRN Reason: Cough Last Admin: 11/12/20 10:28 Dose: 5 ml Documented by: Heparin Sodium (Porcine) (Heparin 5,000 Unit/Ml Vial) 5,000 unit SUBQ BID [facility] Last Admin: 11/12/20 09:13 Dose: 5,000 unit Documented by: Metoprolol Succinate (Metoprolol Succinate 25 Mg Tablet) 25 mg PO DAILY [facility] Last Admin: 11/12/20 09:11 Dose: 25 mg Documented by: Multivitamins/Minerals (Multivitamin W/Minerals Tablet) 1 tab PO DAILYWM [facility] Last Admin: 11/12/20 09:12 Dose: 1 tab Documented by: Nicotine (Nicotine 14 Mg Patch) 1 patch TOP DAILY [facility] Last Admin: 11/12/20 09:12 Dose: 1 patch Documented by: Nystatin (Nystatin Powder 15 Gm) 1 applic TOP BID [facility] Last Admin: 11/12/20 09:18 Dose: 1 applic Documented by: Sodium Chloride (Sodium Chloride Flush 0.9% 10 Ml Syringe) 10 ml IVP PRN PRN PRN Reason: NEEDED PER PROVIDER ORDERS Last Admin: 11/12/20 10:23 Dose: 10 ml Documented by: Sodium Chloride (Sodium Chloride Flush 0.9% 10 Ml Syringe) 10 ml IVP 0100,0900,1700 [facility] Last Admin: 11/12/20 09:18 Dose: 10 ml Documented by: Zolpidem Tartrate (Zolpidem 5 Mg Tablet) 5 mg PO QPM PRN PRN Reason: Insomnia Last Admin: 11/11/20 21:24 Dose: 5 mg Documented by: Atorvastatin [Lipitor] 20 mg PO QPM 08/28/14 Spironolactone 50 mg DAILY 08/28/14 Cholecalciferol [Vitamin D3] 3 cap PO DAILY 11/05/20 Vit A/Vit C/Vit E/Zinc/Copper [Preservision Areds Softgel] 1 each PO DAILY Objective - Vital Signs/Intake & Output Reviewed Vital Signs: Yes Vital Signs: Vital Signs x48h Temp Pulse Pulse Resp BP Pulse Ox 11/12/20 13:00 36.4 C L 61 24 110/61 94 11/12/20 10:42 58 L 16 11/12/20 08:07 36.3 C L 56 L 18 126/78 94 Intake & Output: Intake & Output 11/09/20 11/10/20 11/11/20 11/12/20 23:59 23:59 23:59 23:59 Intake Total 810 200 870 240 Output Total 975 726 305 1338 Balance -165 125 183 -960 - Objective General Appearance: positive: No acute distress, Alert Eyes Bilateral: positive: Normal inspection, Conjunctivae nml ENT: positive: ENT inspection nml Neck: positive: Nml inspection Respiratory: positive: No respiratory distress, Other (Diminished in bases.). negative: Wheezes, Rales Cardiovascular: positive: Regular rate & rhythm, No murmur. negative: Tachycardia, Systolic murmur Abdomen: positive: Non-tender, No distention. negative: Tenderness, Guarding, Rebound Skin: positive: Warm, Dry Extremities: positive: Pedal edema (+2 pitting edema in bilateral lower extremities.) Neurologic/Psychiatric: positive: Motor nml. negative: Disoriented to person, Disoriented to place - Lab Results Fish Bones: 11/12/20 07:45 11/12/20 07:45 Other Labs: Lab Results x24hrs 11/12/20 11/12/20 11/12/20 Range/Units 07:45 07:45 07:45 WBC 10.4 (4.8-10.8) x10^3/uL RBC 4.45 (4.20-5.40) 10^6/uL Hgb 13.1 (12.0-16.0) g/dL Hct 39.1 (37.0-47.0) % MCV 87.9 (81.0-99.0) fL MCH 29.4 (27.0-31.0) pg MCHC 33.5 (32.0-36.0) g/dL RDW 14.2 (12.0-15.0) % Plt Count 206 (130-450) 10^3/uL MPV 9.9 (7.9-10.8) fL Neut # (Auto) 8.2 H (1.5-6.6) 10^3/uL Lymph # (Auto) 1.1 L (1.5-3.5) 10^3/uL [place] # (Auto) 1.0 (0.0-1.0) 10^3/uL Eos # (Auto) 0.0 (0.0-0.7) 10^3/uL Baso # (Auto) 0.0 (0.0-0.1) 10^3/uL Absolute Nucleated RBC 0.00 x10^3/uL Nucleated RBC % 0.0 /100WBC Sodium 136 (135-145) mmol/L Potassium 4.0 (3.5-5.0) mmol/L Chloride 94 L (101-111) mmol/L Carbon Dioxide 31 (21-32) mmol/L Anion Gap 11.0 (6-13) BUN 63 H (6-20) mg/dL Creatinine 1.7 H (0.4-1.0) mg/dL Estimated GFR (MDRD) 29 L (>89) Glucose 90 (70-100) mg/dL Calcium 9.0 (8.5-10.3) mg/dL Magnesium 1.9 (1.7-2.8) mg/dL B-Natriuretic Peptide 1842 H (5-100) pg/mL Ref Lab Test Result 11/06/20 11/06/20 Range/Units 12:01 12:01 WBC (4.8-10.8) x10^3/uL RBC (4.20-5.40) 10^6/uL Hgb (12.0-16.0) g/dL Hct (37.0-47.0) % MCV (81.0-99.0) fL MCH (27.0-31.0) pg MCHC (32.0-36.0) g/dL RDW (12.0-15.0) % Plt Count (130-450) 10^3/uL MPV (7.9-10.8) fL Neut # (Auto) (1.5-6.6) 10^3/uL Lymph # (Auto) (1.5-3.5) 10^3/uL [place] # (Auto) (0.0-1.0) 10^3/uL Eos # (Auto) (0.0-0.7) 10^3/uL Baso # (Auto) (0.0-0.1) 10^3/uL Absolute Nucleated RBC x10^3/uL Nucleated RBC % /100WBC Sodium (135-145) mmol/L Potassium (3.5-5.0) mmol/L Chloride (101-111) mmol/L Carbon Dioxide (21-32) mmol/L Anion Gap (6-13) BUN (6-20) mg/dL Creatinine (0.4-1.0) mg/dL Estimated GFR (MDRD) (>89) Glucose (70-100) mg/dL Calcium (8.5-10.3) mg/dL Magnesium (1.7-2.8) mg/dL B-Natriuretic Peptide (5-100) pg/mL Ref Lab Test Result REPORT REPORT ABX Reporting Has patient been on IV antibiotics over the past 48 hours?: No Assessment/Plan - Problem List (1) Acute on chronic heart failure with reduced ejection fraction and diastolic dysfunction Impression: She was changed to oral Lasix yesterday but today she has a little more dyspnea on exertion and worsening lower extremity edema. Her weight has also increased by 1 kg. Her BNP is only slightly increased. Her creatinine has remained stable although her BUN is increasing but this may have been due to the steroids she was receiving. Given she still appears hypervolemic, we will restart her on IV Lasix 40 mg daily. Continue Toprol. We will continue with fluid restriction and low-sodium diet. We will monitor her renal function closely as she is being diuresed. We are holding ANDREW inhibitor as an angiotensin receptor blockers due to her kidney injury. We will repeat a chest x-ray tomorrow. (2) Abnormal stress test Impression: Her stress test revealed mild reversible defect. Family was agreeable to transfer for angiogram if warranted. I spoke with [facility]ology who felt that this can likely be done on an outpatient basis unless she is having angina or ongoing symptoms. They did feel the patient could be transferred either way to [facility] for ongoing management of her heart failure if family was agreeable. I did speak with the family and they were open to the idea of this if it was felt to be necessary. I spoke with the hospitalist at [facility] in [place] who felt that an angiogram would not be obtained during this hos pitalization and given her other ongoing issue is the heart failure, the transfer would be lateral at best as they would just also diurese her. I did agree with this and I spoke with the patient's family who are agreeable with the patient remaining here at our facility for ongoing diuresis for her heart failure. She does have a change in her clinical status then we can readdress the transfer at that point. (3) Acute kidney injury superimposed on CKD Impression: Her creatinine has remained stable from 1.5-1.8. Her baseline is around 1.4. Her BUN is increasing on a daily basis which may be due to the diuresis but she still appears quite hypervolemic and in heart failure. The steroids may have also contributed to the elevated BUN. Given her increased weight, and edema we will place her back on IV diuresis. We will continue to monitor her renal function closely. (4) V-tach Impression: She has had intermittent runs of nonsustained ventricular tachycardia. This was felt to be related to her electrolytes in a patient with a depressed ejection fraction. We will continue Toprol. (5) Pleural effusion Impression: She had a thoracentesis on November 06 with about 1 L of fluid removed. This was transudate if. Cytology was negative for malignant cells and culture had no growth. This was likely due to her heart failure and we will continue with diuresis. (6) Hypertension Impression: Her blood pressure has been well controlled on Toprol and Lasix which will be continued. (7) Tobacco abuse Impression: We will continue with the nicotine patch while she is hospitalized. She was c ounseled on the importance of alcohol cessation.
[2020-11-12] MEDS: ACETAMINOPHEN 325 MG TABLET PO PRN ×2 (16:38→20:32)
[2020-11-12] MEDS: ATORVASTATIN 10 MG TABLET PO SCH (20:32)
[2020-11-12] MEDS: ZOLPIDEM 5 MG TABLET PO PRN (22:09)
[2020-11-13 04:52] LABS: BASOPHILS % (AUTO) 0.1 %; EOSINOPHILS % (AUTO) 0.1 %; HCT - HEMATOCRIT 37.9 % (37.0-47.0); LYMPHOCYTES # (AUTO) 1.4 10^3/uL (1.5-3.5); LYMPHOCYTES % (AUTO) 18.4 %; MEAN CORPUSCULAR HEMOGLOBIN 28.2 pg (27.0-31.0); MEAN CORPUSCULAR HGB CONC 31.7 g/dL (32.0-36.0); MEAN CORPUSCULAR VOLUME 89.2 fL (81.0-99.0); MEAN PLATELET VOLUME 10.2 fL (7.9-10.8); MONOCYTES # (AUTO) 0.8 10^3/uL (0.0-1.0); MONOCYTES % (AUTO) 9.9 %; NEUTROPHILS # (AUTO) 5.5 10^3/uL (1.5-6.6); NEUTROPHILS % (AUTO) 70.9 %; PLT - PLATELET COUNT 202 10^3/uL (130-450); RED BLOOD COUNT 4.25 10^6/uL (4.20-5.40); RED CELL DISTRIBUTION WIDTH 14.1 % (12.0-15.0); WHITE BLOOD COUNT 7.8 x10^3/uL (4.8-10.8)
[2020-11-13 04:59] LABS: CALCIUM 8.4 mg/dL (8.5-10.3); CREATININE 1.8 mg/dL (0.4-1.0); MAGNESIUM 1.8 mg/dL (1.7-2.8); POTASSIUM 3.7 mmol/L (3.5-5.0)
[2020-11-13] MEDS: guaiFENesin/CODEINE 5 ML UDC PO PRN ×3 (06:01→16:10)
--- NOTE | 2020-11-13 07:41 | PROVIDER PROGRESS NOTE ---
Subjective - Prog Note Date Prog Note Date: 11/13/20 - Subjective Subjective: She continues to deny any chest pain. Reports no shortness of breath today. She has been able to ambulate with physical therapy. She still has lower extremity edema but this is improved compared to admission. Current Medications - Current Medications Current Medications: Active Medications Acetaminophen (Acetaminophen 325 Mg Tablet) 650 mg PO Q4HR PRN PRN Reason: Pain 1 to 4 Last Admin: 11/12/20 20:32 Dose: 650 mg Documented by: Albuterol/Ipratropium (Ipratropium/Albuterol 3 Ml Neb) 3 ml INH Q4HR PRN PRN Reason: Wheezing Last Admin: 11/12/20 10:42 Dose: 3 ml Documented by: Aspirin (Aspirin Ec 81 Mg Tablet) 81 mg PO DAILY [facility] Last Admin: 11/12/20 09:11 Dose: 81 mg Documented by: Atorvastatin Calcium (Atorvastatin 10 Mg Tablet) 20 mg PO QPM [facility] Last Admin: 11/12/20 20:32 Dose: 20 mg Documented by: Cetirizine HCl (Cetirizine 10 Mg Tablet) 10 mg PO DAILY [facility] Last Admin: 11/12/20 09:12 Dose: 10 mg Documented by: Fluticasone Propionate (Fluticasone Nasal [place]) 1 sprays JULIETTE DAILY [facility] Last Admin: 11/12/20 09:14 Dose: 1 spr Documented by: Guaifenesin/Codeine Phosphate (Guaifenesin/Codeine 5 Ml Udc) 5 ml PO Q6HR PRN PRN Reason: Cough Last Admin: 11/13/20 06:01 Dose: 5 ml Documented by: Heparin Sodium (Porcine) (Heparin 5,000 Unit/Ml Vial) 5,000 unit SUBQ BID [facility] Last Admin: 11/12/20 20:39 Dose: 5,000 unit Documented by: Metoprolol Succinate (Metoprolol Succinate 25 Mg Tablet) 25 mg PO DAILY [facility] Last Admin: 11/12/20 09:11 Dose: 25 mg Documented by: Multivitamins/Minerals (Multivitamin W/Minerals Tablet) 1 tab PO DAILYWM [facility] Last Admin: 11/12/20 09:12 Dose: 1 tab Documented by: Nicotine (Nicotine 14 Mg Patch) 1 patch TOP DAILY [facility] Last Admin: 11/12/20 09:12 Dose: 1 patch Documented by: Nystatin (Nystatin Powder 15 Gm) 1 applic TOP BID [facility] Last Admin: 11/12/20 20:35 Dose: 1 applic Documented by: Sodium Chloride (Sodium Chloride Flush 0.9% 10 Ml Syringe) 10 ml IVP PRN PRN PRN Reason: NEEDED PER PROVIDER ORDERS Last Admin: 11/12/20 10:23 Dose: 10 ml Documented by: Sodium Chloride (Sodium Chloride Flush 0.9% 10 Ml Syringe) 10 ml IVP 0100,0900,1700 [facility] Last Admin: 11/12/20 23:39 Dose: 10 ml Documented by: Zolpidem Tartrate (Zolpidem 5 Mg Tablet) 5 mg PO QPM PRN PRN Reason: Insomnia Last Admin: 11/12/20 22:09 Dose: 5 mg Documented by: Atorvastatin [Lipitor] 20 mg PO QPM 08/28/14 Spironolactone 50 mg DAILY 08/28/14 Cholecalciferol [Vitamin D3] 3 cap PO DAILY 11/05/20 Vit A/Vit C/Vit E/Zinc/Copper [Preservision Areds Softgel] 1 each PO DAILY 11/05/20 Objective - Vital Signs/Intake & Output Reviewed Vital Signs: Yes Vital Signs: Vital Signs x48h Temp Pulse Resp BP Pulse Ox 11/13/20 04:01 36.3 C L 57 L 16 137/81 H 91 L Intake & Output: Intake & Output 11/10/20 11/11/20 11/12/20 11/13/20 23:59 23:59 23:59 23:59 Intake Total 200 870 830 100 Output Total 696 102 6982 750 Balance -125 270 -670 -650 - Objective General Appearance: positive: No acute distress, Alert Eyes Bilateral: positive: Normal inspection, Conjunctivae nml ENT: positive: ENT inspection nml Neck: positive: Nml inspection Respiratory: positive: No respiratory distress, Other (Diminshed in bases.). negative: Wheezes, Rales Cardiovascular: positive: Regular rate & rhythm, No murmur. negative: Tach ycardia Abdomen: positive: Non-tender, No distention. negative: Tenderness Skin: positive: Warm, Dry Extremities: positive: Pedal edema (+2 pitting edema in the bilateral lower extremities.) Neurologic/Psychiatric: negative: Disoriented to person, Disoriented to place - Lab Results Fish Bones: 11/13/20 04:15 11/13/20 04:15 Other Labs: Lab Results x24hrs 11/13/20 11/13/20 11/13/20 Range/Units 04:15 04:15 04:15 WBC 7.8 (4.8-10.8) x10^3/uL RBC 4.25 (4.20-5.40) 10^6/uL Hgb 12.0 (12.0-16.0) g/dL Hct 37.9 (37.0-47.0) % MCV 89.2 (81.0-99.0) fL MCH 28.2 (27.0-31.0) pg MCHC 31.7 L (32.0-36.0) g/dL RDW 14.1 (12.0-15.0) % Plt Count 202 (130-450) 10^3/uL MPV 10.2 (7.9-10.8) fL Neut # (Auto) 5.5 (1.5-6.6) 10^3/uL Lymph # (Auto) 1.4 L (1.5-3.5) 10^3/uL [place] # (Auto) 0.8 (0.0-1.0) 10^3/uL Eos # (Auto) 0.0 (0.0-0.7) 10^3/uL Baso # (Auto) 0.0 (0.0-0.1) 10^3/uL Absolute Nucleated RBC 0.00 x10^3/uL Nucleated RBC % 0.0 /100WBC Sodium 134 L (135-145) mmol/L Potassium 3.7 (3.5-5.0) mmol/L Chloride 92 L (101-111) mmol/L Carbon Dioxide 31 (21-32) mmol/L Anion Gap 11.0 (6-13) BUN 70 H (6-20) mg/dL Creatinine 1.8 H (0.4-1.0) mg/dL Estimated GFR (MDRD) 27 L (>89) Glucose 89 (70-100) mg/dL Calcium 8.4 L (8.5-10.3) mg/dL Magnesium 1.8 (1.7-2.8) mg/dL B-Natriuretic Peptide 1422 H (5-100) pg/mL 11/12/20 11/12/20 11/12/20 Range/Units 07:45 07:45 07:45 WBC 10.4 (4.8-10.8) x10^3/uL RBC 4.45 (4.20-5.40) 10^6/uL Hgb 13.1 (12.0-16.0) g/dL Hct 39.1 (37.0-47.0) % MCV 87.9 (81.0-99.0) fL MCH 29.4 (27.0-31.0) pg MCHC 33.5 (32.0-36.0) g/dL RDW 14.2 (12.0-15.0) % Plt Count 206 (130-450) 10^3/uL MPV 9.9 (7.9-10.8) fL Neut # (Auto) 8.2 H (1.5-6.6) 10^3/uL Lymph # (Auto) 1.1 L (1.5-3.5) 10^3/uL [place] # (Auto) 1.0 (0.0-1.0) 10^3/uL Eos # (Auto) 0.0 (0.0-0.7) 10^3/uL Baso # (Auto) 0.0 (0.0-0.1) 10^3/uL Absolute Nucleated RBC 0.00 x10^3/uL Nucleated RBC % 0.0 /100WBC Sodium 136 (135-145) mmol/L Potassium 4.0 (3.5-5.0) mmol/L Chloride 94 L (101-111) mmol/L Carbon Dioxide 31 (21-32) mmol/L Anion Gap 11.0 (6-13) BUN 63 H (6-20) mg/dL Creatinine 1.7 H (0.4-1.0) mg/dL Estimated GFR (MDRD) 29 L (>89) Glucose 90 (70-100) mg/dL Calcium 9.0 (8.5-10.3) mg/dL Magnesium 1.9 (1.7-2.8) mg/dL B-Natriuretic Peptide 1842 H (5-100) pg/mL ABX Reporting Has patient been on IV antibiotics over the past 48 hours?: No Assessment/Plan - Problem List (1) Acute on chronic heart failure with reduced ejection fraction and diastolic dysfunction Impression: Her echocardiogram revealed an ejection fraction of 40 to 45%. She has lost 2- 1/2 kg since admission. Her lower extremity edema is improved but still remains about +2. Her BNP is also now down to 1400 from 4000 on admission. Repeat chest x-ray today still suggest pulmonary vascular congestion. She is still hypervolemic and although her creatinine has been relatively steady, her BUN is increasing on a daily basis. This prerenal azotemia is secondary to the diuresis. At this time, we will hold off on further IV diuresis today and recheck her renal function tomorrow. If this is stable and improving then we can likely place her on oral diuretics and look to discharge her the following day after we ensure she remained stable from a respiratory standpoint given her heart failure. She may ultimately have chronic lower extremity edema due to her history of varicose vein surgeries. I reviewed prior records and when she was seen in the ER in March of 2019, there was note of +1 pitting edema at that time. (2) Acute kidney injury superimposed on CKD Impression: Creatinine has been stable at around 1.7 and her baseline is 1.4. She does have prerenal azotemia due to the diuresis. Although she has lower extremity edema, this is likely chronic and I suspect that she has received enough IV diuresis fo r the time being. We will hold her IV Lasix today recheck renal function tomorrow and if this is stable we will place her on oral Lasix. (3) Abnormal stress test Impression: She did have a stress test which was concerning for a small reversible defect. This was discussed with [place] yesterday and it was felt that she would not need an inpatient angiogram and so she was not transferred to higher level of care. She will need outpatient follow-up with cardiology as she will need an angiogram at some point to evaluate for ischemic cardiomyopathy. We will continue her on aspirin and statin. (4) V-tach Impression: She had episodes of nonsustained ventricular tachycardia. She has had occasional episodes of 5-6 beats of nonsustained VT. We will continue metoprolol. (5) Pleural effusion Impression: She underwent a thoracentesis on November 06 with 1 L removed. This was a transitive effusion likely due to her heart failure. Cytology was negative. (6) Hypertension Impression: Her blood pressure has been well controlled on Toprol and with the Lasix. (7) Tobacco abuse Impression: Continue with nicotine patch during this hospitalization. She was counseled on the importance of tobacco cessation.
--- NOTE | 2020-11-13 08:56 | XRAY Report ---
PROCEDURE: Chest 1 View X-Ray INDICATIONS: Dyspnea. Follow up CHF. TECHNIQUE: One view of the chest was acquired. COMPARISON: 11/10/2020 FINDINGS: Surgical changes and devices: Numerous surgical clips project in the right axilla. There is increased retrocardiac consolidation. Background diffuse hazy and groundglass opacities are grossly unchanged Scattered subsegmental scarring/atelectasis. No pleural effusion or pneumothorax. Mediastinum: Mediastinal contours appear normal. Heart size is normal. Bones and chest wall: No suspicious bony lesions. Overlying soft tissues appear unremarkable. IMPRESSION: Retrocardiac consolidation opacity which appears increased since 11/10/2020, possibly aspiration/atele ctasis versus pneumonia. If there is persistent clinical diagnostic uncertainty, recommend short inte rval follow-up chest radiographs after treatment for further assessment. Additional background diffuse hazy and groundglass opacities suggestive of pulmonary edema. This appe ars grossly unchanged. Recommend clinical and laboratory correlation to exclude underlying infection. Reviewed by: Wade Sheppard MD on 11/13/2020 8:55 AM PDT Approved by: Wade Sheppard MD on 11/13/2020 8:55 AM PDT Station ID: [id number]
[2020-11-13] MEDS: HEPARIN 5,000 UNIT/ML VIAL SUBQ SCH ×2 (09:04→21:23)
[2020-11-13] MEDS: MULTIVITAMIN W/MINERALS TABLET PO SCH (09:11)
[2020-11-13] MEDS: ASPIRIN EC 81 MG TABLET PO SCH (09:11)
[2020-11-13] MEDS: NICOTINE 14 MG PATCH TOP SCH (09:15)
[2020-11-13] MEDS: METOPROLOL SUCCINATE 25 MG TABLET PO SCH (09:15)
[2020-11-13] MEDS: CETIRIZINE 10 MG TABLET PO SCH (09:15)
[2020-11-13] MEDS: SODIUM CHLORIDE FLUSH 0.9% 10 ML SYRINGE IVP SCH ×2 (09:18→17:15)
[2020-11-13] MEDS: NYSTATIN POWDER 15 GM TOP SCH ×2 (09:25→21:26)
[2020-11-13] MEDS: FLUTICASONE NASAL SPRAY NAS SCH (09:26)
[2020-11-13] MEDS: ACETAMINOPHEN 325 MG TABLET PO PRN (16:10)
[2020-11-13] MEDS: ATORVASTATIN 10 MG TABLET PO SCH (21:23)
[2020-11-14] MEDS: ZOLPIDEM 5 MG TABLET PO PRN ×2 (00:05→23:47)
[2020-11-14] MEDS: SODIUM CHLORIDE FLUSH 0.9% 10 ML SYRINGE IVP SCH ×4 (00:05→23:47)
[2020-11-14 04:41] LABS: BASOPHILS % (AUTO) 0.1 %; EOSINOPHILS # (AUTO) 0.1 10^3/uL (0.0-0.7); EOSINOPHILS % (AUTO) 0.5 %; HCT - HEMATOCRIT 35.7 % (37.0-47.0); HGB - HEMOGLOBIN 11.6 g/dL (12.0-16.0); LYMPHOCYTES # (AUTO) 1.3 10^3/uL (1.5-3.5); LYMPHOCYTES % (AUTO) 13.4 %; MEAN CORPUSCULAR HEMOGLOBIN 29.1 pg (27.0-31.0); MEAN CORPUSCULAR HGB CONC 32.5 g/dL (32.0-36.0); MEAN CORPUSCULAR VOLUME 89.7 fL (81.0-99.0); MEAN PLATELET VOLUME 10.6 fL (7.9-10.8); MONOCYTES # (AUTO) 0.9 10^3/uL (0.0-1.0); MONOCYTES % (AUTO) 9.4 %; NEUTROPHILS # (AUTO) 7.5 10^3/uL (1.5-6.6); PLT - PLATELET COUNT 189 10^3/uL (130-450); RED BLOOD COUNT 3.98 10^6/uL (4.20-5.40); RED CELL DISTRIBUTION WIDTH 14.1 % (12.0-15.0); WHITE BLOOD COUNT 9.8 x10^3/uL (4.8-10.8)
[2020-11-14 04:52] LABS: CALCIUM 8.5 mg/dL (8.5-10.3); CREATININE 1.7 mg/dL (0.4-1.0); MAGNESIUM 1.8 mg/dL (1.7-2.8); POTASSIUM 3.4 mmol/L (3.5-5.0)
[2020-11-14] MEDS ORDERED: POTASSIUM CHLORIDE 20 MEQ TABLET PO ONE (08:04)
--- NOTE | 2020-11-14 08:07 | PROVIDER PROGRESS NOTE ---
Assessment/Plan - Problem List (1) CHF exacerbation Assessment/Plan: BP 143/95. Cr 1.7. Lasix 40mg po daily. Resumed And comfortably on room air. Patient is down about 2.5 kg since admission. BNP is 1400. This is improved from admission when it was 4000. Patient has 2+ lower extremity edema. Some of this is thought to be chronic. Plan is for discharge home with home health tomorrow 11/15/20 (2) V-tach Assessment/Plan: She had episodes of nonsustained ventricular tachycardia. She has had occasional episodes of 5-6 beats of nonsustained VT. We will continue metoprolol. (3) Pleural effusion Assessment/Plan: She underwent a thoracentesis on November 06 with 1 L removed. This was a transitive effusion likely due to her heart failure. Cytology was negative. (5) Acute renal failure Assessment/Plan: Acute on chronic kidney disease. Creatinine today is 1.7. Baseline 1.4. Her p.o. Lasix 40 mg daily resumed today. (6) Abnormal stress test Assessment/Plan: She did have a stress test which was concerning for a small reversible defect. This was discussed with [place] yesterday and it was felt that she would not need an inpatient angiogram and so she was not transferred to higher level of care. She will need outpatient follow-up with cardiology as she will need an angiogram at some point to evaluate for ischemic cardiomyopathy. We will continue her on aspirin and statin. (7) Hypertension Assessment/Plan: Her blood pressure has been well controlled on Toprol and with the Lasix. (8) Tobacco abuse Assessment/Plan: Continue with nicotine patch during this hospitalization. She was counseled on the importance of tobacco cessation. - Current Meds Current Meds: Current Medications Generic Name Dose Route Start Last Admin Trade Name Freq PRN Reason Stop Dose Admin Acetaminophen 650 mg 11/05/20 10:49 11/13/20 16:10 Acetaminophen 325 Mg Tablet PO 650 mg Q4HR PRN Administration Pain 1 to 4 Albuterol/Ipratropium 3 ml 11/07/20 11:36 11/12/20 10:42 Ipratropium/Albuterol 3 Ml Neb INH 3 ml Q4HR PRN Administration Wheezing Aspirin 81 mg 11/11/20 13:00 11/13/20 09:11 Aspirin Ec 81 Mg Tablet PO 81 mg DAILY KEESHA Administration Atorvastatin Calcium 20 mg 11/11/20 21:00 11/13/20 21:23 Atorvastatin 10 Mg Tablet PO 20 mg QPM KEESHA Administration Cetirizine HCl 10 mg 11/11/20 15:01 11/13/20 09:15 Cetirizine 10 Mg Tablet PO 10 mg DAILY KEESHA Administration Fluticasone Propionate 1 sprays 11/11/20 15:02 11/13/20 09:26 Fluticasone Nasal Krypton JULIETTE Not Given DAILY KEESHA Guaifenesin/Codeine Phosphate 5 ml 11/05/20 22:20 11/13/20 16:10 Guaifenesin/Codeine 5 Ml Udc PO 5 ml Q6HR PRN Administration Cough Heparin Sodium (Porcine) 5,000 unit 11/06/20 09:00 11/13/20 21:23 Heparin 5,000 Unit/Ml Vial SUBQ 5,000 unit BID KEESHA Administration Metoprolol Succinate 25 mg 11/07/20 12:00 11/13/20 09:15 Metoprolol Succinate 25 Mg Tablet PO 25 mg DAILY KEESHA Administration Multivitamins/Minerals 1 tab 11/08/20 12:00 11/13/20 09:11 Multivitamin W/Minerals Tablet PO 1 tab DAILYWM KEESHA Administration Nicotine 1 patch 11/05/20 13:00 11/13/20 09:15 Nicotine 14 Mg Patch TOP 1 patch DAILY KEESHA Administration Nystatin 1 applic 11/05/20 13:00 11/13/20 21:26 Nystatin Powder 15 Gm TOP 1 applic BID KEESHA Administration Sodium Chloride 10 ml 11/05/20 10:49 11/12/20 10:23 Sodium Chloride Flush 0.9% 10 Ml Syringe IVP 10 ml PRN PRN Administration NEEDED PER PROVIDER ORDERS Sodium Chloride 10 ml 11/05/20 17:00 11/14/20 00:05 Sodium Chloride Flush 0.9% 10 Ml Syringe IVP 10 ml 0100,0900,1700 KEESAH Administration Zolpidem Tartrate 5 mg 11/06/20 20:11 11/14/20 00:05 Zolpidem 5 Mg Tablet PO 5 mg QPM PRN Administration Insomnia - Lab Result Fish Bone Diagrams: 11/14/20 04:15 11/14/20 04:15 - Additional Planning My Orders: My Active Orders 11/14/20 08:04 Potassium Chloride [K-Dur] 20 meq PO ONCE ONE Subjective - Subjective Patient Reports: Other (Patient resting comfortably in bedside chair at time of visit. She had just finished dressing after showering this morning. She denied chest pain, dyspnea, abdominal pain, fever or chills. However with significant exertion she gets dyspneic. She is breathing comfortably on room air currently.) Objective Vital Signs: Vital Signs - 24 hr 11/13/20 11/13/20 11/13/20 10:30 12:00 15:43 Temperature 36.6 C 36.3 C L Heart Rate 61 Heart Rate [ 50 L 56 L Brachial] Heart Rate [ Monitoring electrodes] Respiratory 18 18 24 Rate Blood Pressure 105/65 96/57 L [Left Brachial artery] O2 Saturation 93 93 11/13/20 11/13/20 11/13/20 19:35 20:00 23:23 Temperature 36.4 C L 36.4 C L Heart Rate 54 L Heart Rate [ 53 L 55 L Brachial] Heart Rate [ Monitoring electrodes] Respiratory 16 16 16 Rate Blood Pressure 123/72 130/73 [Left Brachial artery] O2 Saturation 93 95 11/14/20 11/14/20 04:00 07:44 Temperature 36.4 C L 36.3 C L Heart Rate Heart Rate [ 59 L Brachial] Heart Rate [ 50 L Monitoring electrodes] Respiratory 16 16 Rate Blood Pressure 143/95 H 125/74 [Left Brachial artery] O2 Saturation 94 94 Oxygen O2 Source [With Activity] Nasal cannula O2 Source Room air Oxygen Flow Rate 2 I&O (Last 24 Hrs): Intake and Output Totals x24h 11/12/20 11/13/20 11/14/20 23:59 23:59 23:59 Intake Total 830 1265 Output Total 1500 1100 1150 Balance -670 165 -1150 General: Alert, Oriented x3, No acute distress HEENT: PERRLA, EOMI Neck: Supple, No JVD Neuro: Alert, Non Focal, Oriented Times 3 Cardiovascular: Normal S1, Normal S2, Other (bradycardia) Respiratory: Chest non-tender, No respiratory distress, Rhonchi (mild) Abdomen: Normal bowel sounds, Soft, No tenderness Extremities: No clubbing, No cyanosis, Other (+2 pitting edema bilaterally) Skin: No rashes - Results Results: Laboratory Results WBC 9.8 x10^3/uL (4.8-10.8) 04/16/21 04:15 RBC 3.98 10^6/uL (4.20-5.40) L 11/14/20 04:15 Hgb 11.6 g/dL (12.0-16.0) L 11/14/20 04:15 Hct 35.7 % (37.0-47.0) L 11/14/20 04:15 MCV 89.7 fL (81.0-99.0) 11/14/20 04:15 MCH 29.1 pg (27.0-31.0) 11/14/20 04:15 MCHC 32.5 g/dL (32.0-36.0) 11/14/20 04:15 RDW 14.1 % (12.0-15.0) 11/14/20 04:15 Plt Count 189 10^3/uL (130-450) 11/14/20 04:15 MPV 10.6 fL (7.9-10.8) 11/14/20 04:15 Neut # (Auto) 7.5 10^3/uL (1.5-6.6) H 11/14/20 04:15 Lymph # (Auto) 1.3 10^3/uL (1.5-3.5) L 11/14/20 04:15 [place] # (Auto) 0.9 10^3/uL (0.0-1.0) 11/14/20 04:15 Eos # (Auto) 0.1 10^3/uL (0.0-0.7) 11/14/20 04:15 Baso # (Auto) 0.0 10^3/uL (0.0-0.1) 11/14/20 04:15 Absolute Nucleated RBC 0.00 x10^3/uL 11/14/20 04:15 Band Neuts % (Manual) Not Reportable 11/10/20 05:45 Abnorm Lymph % (Manual) Not Reportable 11/10/20 05:45 Nucleated RBC % 0.0 /100WBC 11/14/20 04:15 Neutrophils # (Manual) Not Reportable 11/10/20 05:45 Lymphocytes # (Manual) Not Reportable 11/10/20 05:45 Monocytes # (Manual) Not Reportable 11/10/20 05:45 Eosinophils # (Manual) Not Reportable 11/10/20 05:45 Basophils # (Manual) Not Reportable 11/10/20 05:45 Differential Comment MANUAL=AUTO DIFF 11/10/20 05:45 Manual Slide Review Indicated 11/10/20 05:45 Platelet Estimate NORMAL (130-450,000) (NORMAL) 11/10/20 05:45 Platelet Morphology NORMAL APPEARANCE (NORMAL) 11/10/20 05:45 RBC Morph Micro Appear NORMAL APPEARANCE (NORMAL) 11/10/20 05:45 PT 12.3 secs (9.9-12.6) 11/06/20 04:45 INR 1.1 (0.8-1.2) 11/06/20 04:45 Sodium 137 mmol/L (135-145) 11/14/20 04:15 Potassium 3.4 mmol/L (3.5-5.0) L 11/14/20 04:15 Chloride 96 mmol/L (101-111) L 11/14/20 04:15 Carbon Dioxide 31 mmol/L (21-32) 11/14/20 04:15 Anion Gap 10.0 (6-13) 11/14/20 04:15 BUN 61 mg/dL (6-20) H 11/14/20 04:15 Creatinine 1.7 mg/dL (0.4-1.0) H 11/14/20 04:15 Estimated GFR (MDRD) 29 (>89) L 11/14/20 04:15 Glucose 85 mg/dL (70-100) 11/14/20 04:15 Calcium 8.5 mg/dL (8.5-10.3) 11/14/20 04:15 Phosphorus 2.9 mg/dL (2.5-4.6) 11/07/20 18:49 Magnesium 1.8 mg/dL (1.7-2.8) 11/14/20 04:15 Total Bilirubin 0.9 mg/dL (0.2-1.0) 11/05/20 10:12 AST 20 IU/L (10-42) 11/05/20 10:12 ALT 18 IU/L (10-60) 11/05/20 10:12 Alkaline Phosphatase 84 IU/L (42-121) 11/05/20 10:12 Troponin I High Sens 57.3 ng/L (2.3-14.8) H* 11/07/20 22:34 B-Natriuretic Peptide 1422 pg/mL (5-100) H 11/13/20 04:15 Total Protein 6.0 g/dL (6.7-8.2) L 11/05/20 10:12 Albumin 3.1 g/dL (3.2-5.5) L 11/05/20 10:12 Globulin 2.9 g/dL (2.1-4.2) 11/05/20 10:12 Albumin/Globulin Ratio 1.1 (1.0-2.2) 11/05/20 10:12 Lipase 35 U/L (22-51) 11/05/20 10:12 TSH 4.32 uIU/mL (0.34-5.60) 11/05/20 10:12 Fluid Source PLEURAL 11/06/20 12:01 Fluid Color YELLOW 11/06/20 12:01 Fluid Clarity CLEAR 11/06/20 12:01 Fluid WBC 169 /mm^3 11/06/20 12:01 Fluid RBC < 3000 /mm^3 11/06/20 12:01 Fluid Neutrophils % 48 % 11/06/20 12:01 Fluid Lymphocytes % 22 % 11/06/20 12:01 Fluid Macrophages % 31 % 11/06/20 12:01 Nasal Adenovirus (PCR) NOT DETECTED 11/05/20 10:07 Nasal B. parapertussis DNA (PCR) NOT DETECTED 11/05/20 10:07 Nasal Coronavir 229E PCR NOT DETECTED 11/05/20 10:07 Nasal Coronavir HKU1 PCR NOT DETECTED 11/05/20 10:07 Nasal Coronavir NL63 PCR NOT DETECTED 11/05/20 10:07 Nasal Coronavir OC43 PCR NOT DETECTED 11/05/20 10:07 Nasal Enterovir/Rhinovir PCR NOT DETECTED 11/05/20 10:07 Nasal Influenza B PCR NOT DETECTED 11/05/20 10:07 Nasal Influenza A PCR NOT DETECTED 11/05/20 10:07 Nasal Parainfluen 1 PCR NOT DETECTED 11/05/20 10:07 Nasal Parainfluen 2 PCR NOT DETECTED 11/05/20 10:07 Nasal Parainfluen 3 PCR NOT DETECTED 11/05/20 10:07 Nasal Parainfluen 4 PCR NOT DETECTED 11/05/20 10:07 Nasal RSV (PCR) NOT DETECTED 11/05/20 10:07 Nasal B.pertussis DNA PCR NOT DETECTED 11/05/20 10:07 Nasal C.pneumoniae (PCR) NOT DETECTED 11/05/20 10:07 Juliette Human Metapneumo PCR NOT DETECTED 11/05/20 10:07 Nasal M.pneumoniae (PCR) NOT DETECTED 11/05/20 10:07 Nasal SARS-CoV-2 (PCR) NOT DETECTED 11/05/20 10:07 Ref Lab Test Result REPORT 11/06/20 12:01 Ref Lab Test Result REPORT 11/06/20 12:01 Ref Lab Test Result REPORT 11/06/20 12:01 Ref Lab Test Result REPORT 11/06/20 12:01 - Procedures Procedures: Procedures CATARAC PHACOEMULS/ASPIR (11/28/14) INSERT LENS AT CATAR EXT (11/28/14) ABX Reporting Has patient been on IV antibiotics over the past 48 hours?: No
[2020-11-14] MEDS: MULTIVITAMIN W/MINERALS TABLET PO SCH (08:13)
[2020-11-14] MEDS: ASPIRIN EC 81 MG TABLET PO SCH (08:19)
[2020-11-14] MEDS: CETIRIZINE 10 MG TABLET PO SCH (08:19)
[2020-11-14] MEDS: HEPARIN 5,000 UNIT/ML VIAL SUBQ SCH ×2 (08:21→22:08)
[2020-11-14] MEDS: FLUTICASONE NASAL SPRAY NAS SCH (08:22)
[2020-11-14] MEDS: NICOTINE 14 MG PATCH TOP SCH (08:22)
[2020-11-14] MEDS: NYSTATIN POWDER 15 GM TOP SCH ×2 (08:24→22:08)
[2020-11-14] MEDS: FUROSEMIDE 40 MG TABLET PO SCH (08:36)
[2020-11-14] MEDS: METOPROLOL SUCCINATE 25 MG TABLET PO SCH (08:36)
[2020-11-14] MEDS: ACETAMINOPHEN 325 MG TABLET PO PRN (15:51)
[2020-11-14] MEDS: ATORVASTATIN 10 MG TABLET PO SCH (22:07)
[2020-11-15 06:09] LABS: BASOPHILS % (AUTO) 0.1 %; EOSINOPHILS # (AUTO) 0.1 10^3/uL (0.0-0.7); EOSINOPHILS % (AUTO) 0.5 %; HCT - HEMATOCRIT 37.3 % (37.0-47.0); HGB - HEMOGLOBIN 12.1 g/dL (12.0-16.0); LYMPHOCYTES # (AUTO) 1.1 10^3/uL (1.5-3.5); LYMPHOCYTES % (AUTO) 10.1 %; MEAN CORPUSCULAR HEMOGLOBIN 28.9 pg (27.0-31.0); MEAN CORPUSCULAR HGB CONC 32.4 g/dL (32.0-36.0); MEAN PLATELET VOLUME 10.6 fL (7.9-10.8); MONOCYTES # (AUTO) 0.8 10^3/uL (0.0-1.0); MONOCYTES % (AUTO) 7.1 %; NEUTROPHILS # (AUTO) 8.8 10^3/uL (1.5-6.6); NEUTROPHILS % (AUTO) 81.5 %; PLT - PLATELET COUNT 229 10^3/uL (130-450); RED BLOOD COUNT 4.19 10^6/uL (4.20-5.40); RED CELL DISTRIBUTION WIDTH 14.1 % (12.0-15.0); WHITE BLOOD COUNT 10.7 x10^3/uL (4.8-10.8)
[2020-11-15 06:14] LABS: CALCIUM 8.5 mg/dL (8.5-10.3); CREATININE 1.8 mg/dL (0.4-1.0); MAGNESIUM 1.7 mg/dL (1.7-2.8); POTASSIUM 3.7 mmol/L (3.5-5.0)
--- NOTE | 2020-11-15 07:54 | DISCHARGE SUMMARY ---
Discharge Summary Admit Date: 11/05/20 Discharge Date: 11/15/20 Discharging Provider: Devi Wilder Primary Care Provider: Devaughn Brantley Condition at Discharge: Stable Discharge Disposition: Home Health Service - DIAGNOSES Admission Diagnoses: CHF exacerbation Pleural effusion Elevated troponin Acute renal failure Tobacco abuse Hypertension Discharge Diagnoses with Status of Each Condition: Acute on chronic heart failure with reduced ejection fraction - ongoing. Abnormal stress test - ongoing. Acute kidney injury superimposed on CKD - ongoing. Nonsustained vertical tachycardia - resolved. Left pleural effusion - improved. Hypertension - stable. Tobacco abuse - stable. - HPI History of Present Illness: Patient is an 80-year-old female with medical history significant for hypertension, macular degeneration and an active tobacco user (cigarettes) Scented to the ED via EMS with complaint of dyspnea which is worse on exertion and significant lower extremity edema. Her symptoms have been going on for the past 3 to 4 weeks but got significantly worse over the past week. Yesterday she went to the [facility] where lab work was done. She was prescribed Lasix and spironolactone but has not taken any of it since prescription. Her son-in-law checked on her this morning and called EMS when they noticed she was significantly dyspneic. In the ED she was found to have a 2-3+ lower extremity edema c. her BNP was 3900 and troponin of 39. She has been experiencing a whitish productive cough. She denied any previous occurrence of similar symptoms. She denied any history of cardiac disease. She denies chest pain, abdominal pain, nausea, vomiting, fever or chills. She lives alone but her family lives down the same street from her. She gets around her house using a walker however this has been difficult to do lately. She is fairly independent of activities of daily living. As a result of her clinical presentation and lab findings, she was presented for admission for further treatment. - CONSULTS | PROCEDURES Procedures: Echocardiogram on November 06 revealed an ejection fraction of 40 to 45%. Grade 1 diastolic dysfunction. No regional wall motion abnormalities. Mild right ventricular enlargement. Moderate mixed etiology mitral vegetation. Moderately abnormal right heart pressures. RVSP at rest is 53 mmHg. Large size left pleural effusion. Repeat limited echocardiogram on November 10 revealed an ejection fraction of 40 to 45%. No evidence of an anteroseptal left ventricular aneurysm. Lexiscan pharmaceutical stress test with nuclear myocardial perfusion imaging was obtained on November 10. Her resting EKG was normal sinus rhythm with PACs, PVCs, and LVH with strain. [address] elevation in V1 through V4 with inverted T waves in the same leads, plus biphasic T waves in V5 and V6. No new ST segment or T wave changes develop with pharmaceutical stress. Summary: Abnormal resting EKG. No ischemic changes develop by EKG criteria, h owever, the baseline electrocardiogram is already abnormal, has left ventricular hypertrophy strain pattern. Nuclear images were reported separately and showed small, apical septal reversible perfusion defect consistent with ischemia, depressed LVEF of 49%. - HOSPITAL COURSE Hospital Course: Per Dr Pandey's note "The patient was admitted for acute hypoxic respiratory failure secondary to suspected CHF. An echocardiogram was obtained which revealed an ejection fraction of 40 to 45% with grade 1 diastolic dysfunction. No regional wall sara on normalities were seen. She also had a large left pleural effusion and she underwent a thoracentesis on November 06 with 1 L of fluid removed. Pleural fluid studies revealed that this was transudative. Culture had no growth. Cytology was negative. It was felt that this effusion was related to her heart failure. She was diuresed with Lasix 20 mg IV twice daily. BNP was nearly 4000 on admission and on day of transfer, this has decreased to 1842. On admission were also flat ranging from 39-69, this is the high sensitivity troponin. On the evening of November 07, she had a 12 beat run of monomorphic ventricular tachycardia. Repeat EKG showed a sinus rhythm with frequent PACs, LVH and ST elevations in V1 through V4 as well as T wave inversions and V1 through V5. There was concern that there may be an LV aneurysm present and so a repeat echocardiogram was obtained which showed an ejection fraction remained stable at 40 to 45% and there was no evidence of an LV aneurysm. Troponins were also checked and they also remained flat in the 50s. The patient did not have chest pain throughout this hospitalization. It was felt that her ongoing dyspnea may have been related to COPD given her significant smoking history and so she was trialed on Solu-Medrol 40 mg IV 3 times daily. He also underwent a Lexiscan pharmaceutical stress test on the . This was delayed as we do not have str ess test available over the weekend. The myocardial perfusion images were concerning for small, mild reversible septal apical perfusion defect suspicious for myocardial ischemia. This was also felt that it may be related to breast attenuation and shifting breast artifact but the patient does have a history of bilateral mastectomy. The stress test findings were discussed with the patient and her family and they discussed over next 24 hours if they would want to consider cardiology consultation to see if an angiogram would be warranted given her presentation. As we waited for their decision, she continued to be diuresed with IV Lasix. Her creatinine had remained stable from 1.5-1.8. Her BUN had increased each day from the 20s to as high as the 60s. The Solu-Medrol was discontinued as it was felt she was not having a COPD exacerbation and this may have also contributed to her elevated BUN. Given her BNP had been decreasing and she was no longer hypoxic, we did try her on oral Lasix on the especially given her BUN had been climbing. Although her dyspnea had improved, she still had significant lower extremity edema and this progressed the following day and she was placed b ack on IV Lasix. At this point in time, the family was agreeable to transfer for cardiology evaluation. I spoke with the [facility] and spoke with the para educator for [facility] who felt that transfer would be reasonable. They did mention that an inpatient angiogram might not necessarily be obtained as this is usually done on an outpatient basis unless the patient is having ongoing symptoms. Nonetheless, the para educator did state that transfer will still be warranted if family would like to proceed. I spoke with the patient and her daughter regarding this and the fact that an angiogram might not be obtained. After further discussion, they were still agreeable to transfer. I spoke with the hospitalist at [facility] in [place] who felt that an angiogram would not be obtained during this hospitalization and given her other ongoing issue is the heart failure, the transfer would be lateral at best as they would just also diurese her. I did agree with this and I spoke with the patient's family who are agreeable with the patient remaining here at our facility for ongoing diuresis for her heart failure. She does have a change in her clinical status then we can readdress the transfer at that point." Patient was discharged on 10/3002/14/2021. I had a conversation with her daughter Debra about changes to her medication. The patient would be on Lasix 40 mg p.o. daily upon discharge. Metoprolol succinate 25 mg p.o. daily. Spironolactone was discontinued. There was advised that the patient needs to watch/limit amount of salt intake as well as fluid intake. If she gains 5 pounds in a week she should consider bringing it to the attention of her primary care physician. If the patient's lower extremity edema also worsen or if her respiratory status worsened from baseline she should seek medical attention. Currently the patient ambulates using her walker on room air with no respiratory distress. At this time of discharge she still has a +1-2 lower extremity edema which is chronic. The park activities coordinator will assist in setting up a follow-up appointment with her primary care physician at the earliest possible date. It is expected that her primary care physician will refer her to cardiology. Patient would subsequently need a coronary angiogram. Her daughter expressed understanding to all that was explained. - ALLERGIES Allergies/Adverse Reactions: Allergies Allergy/AdvReac Type Severity Reaction Status Date / Time lisinopril AdvReac Respiratory Verified 11/05/20 09:47 - MEDICATIONS Home Medications: Ambulatory Orders Medication Instructions Recorded Confirmed Atorvastatin [Lipitor] 20 mg PO QPM 08/28/14 11/07/20 Cholecalciferol [Vitamin D3] 3 cap PO DAILY 11/05/20 11/05/20 Vit A/Vit C/Vit E/Zinc/Copper 1 each PO DAILY 11/05/20 11/07/20 [Preservision Areds Softgel] Furosemide [Lasix] 40 mg PO DAILY 30 Days #30 tablet 11/15/20 Metoprolol Succinate [Toprol Xl] 25 mg PO DAILY 30 Days #30 tablet 11/15/20 - PHYSICAL EXAM AT DISCHARGE General Appearance: positive: No acute distress, Alert Eyes Bilateral: positive: PERRL, EOMI ENT: positive: No signs of dehydration Neck: positive: No JVD, Trachea midline Cardiovascular: positive: Regular rate & rhythm, Systolic murmur Abdomen: positive: Non-tender, Nml bowel sounds, No distention. negative: Guard ing, Rebound Back: positive: Nml inspection Skin: positive: Warm, Dry, Other (hyperemic lower extremities. Chronic. From venostasis) Extremities: positive: Non-tender, Other (2+ lower extremity edema) Neurologic/Psychiatric: positive: Oriented x3, Mood/affect nml - LABS Result Diagrams: 11/15/20 05:45 11/15/20 05:45 - TIME SPENT Time Spent in Discharge (Minutes): 30
--- NOTE | 2020-11-15 07:54 | Discharge Plan ---
Discharge Plan Problem Reviewed?: Yes Disposition: Home, Self Care Condition: Stable Prescriptions: Furosemide [Lasix] 40 mg PO DAILY 30 Days #30 tablet Metoprolol Succinate [Toprol Xl] 25 mg PO DAILY 30 Days #30 tablet Diet: Cardiac Activity Restrictions: Activity as Tolerated Assistance Devices: [facility] Concerns: You were admitted with shortness of breath with activity. Work-up showed you had a BNP of 4000 and significant lower extremity edema. Your diagnosis was congestive heart failure exacerbation. You also had a large collection of fluid on the left side of your lung which is called a pleural effusion. This was tapped and 1 L of fluid was extracted. You had 2D echocardiogram done which showed you had an ejection fraction of 40 to 45%. You were treated with Lasix during your hospital stay and over the course of this time you lost about 2-1/2 kg which was mainly due to fluid. Your breathing improved such that you no longer required oxygen and was breathing comfortably on room air. During your hospital stay you had intermittent runs of V. tach and also had EKG changes for which you underwent a stress test. This was noted to be abnormal. You will follow-up with your primary care physician who is expected to refer you to cardiology. Since you are with the [facility] for insurance it is likely a referral would need to be to a [facility] operator/assistant foreman. He would likely undergo coronary angiogram in the outpatient setting. Your creatinine at time of discharge was 1.8. BUN was 53. By the time of discharge your BNP was 1422. You will be continued on Lasix 40 mg p.o. daily upon discharge. I will continue to hold your spironolactone and will defer the decision to resume to your primary care physician who is ordering provider. You were also placed on metoprolol succinate 25 mg p.o. daily. You will be discharged home with home health PT OT. Plan of Treatment: You were admitted with shortness of breath with activity. Work-up showed you had a BNP of 4000 and significant lower extremity edema. Your diagnosis was congestive heart failure exacerbation. You also had a large collection of fluid on the left side of your lung which is called a pleural effusion. This was tapped and 1 L of fluid was extracted. You had 2D echocardiogram done which showed you had an ejection fraction of 40 to 45%. You were treated with Lasix during your hospital stay and over the course of this time you lost about 2-1/2 kg which was mainly due to fluid. Your breathing improved such that you no longer required oxygen and was breathing comfortably on room air. During your hospital stay you had intermittent runs of V. tach and also had EKG changes for which you underwent a stress test. This was noted to be abnormal. You will follow-up with your primary care physician who is expected to refer you to cardiology. Since you are with the [facility] for insurance it is likely a referral would need to be to a [facility] operator/assistant foreman. He would likely undergo coronary angiogram in the outpatient setting. Your creatinine at time of discharge was 1.8. BUN was 53. By the time of discharge your BNP was 1422. You will be continued on Lasix 40 mg p.o. daily upon discharge. I will continue to hold your spironolactone and will defer the decision to resume to your primary care physician who is ordering provider. You were also placed on metoprolol succinate 25 mg p.o. daily. You will be discharged home with home health PT OT. Care Goals: You were admitted with shortness of breath with activity. Work-up showed you had a BNP of 4000 and significant lower extremity edema. Your diagnosis was congestive heart failure exacerbation. You also had a large collection of fluid on the left side of your lung which is called a pleural effusion. This was tapped and 1 L of fluid was extracted. You had 2D echocardiogram done which showed you had an ejection fraction of 40 to 45%. You were treated with Lasix during your hospital stay and over the course of this time you lost about 2-1/2 kg which was mainly due to fluid. Your breathing improved such that you no longer required oxygen and was breathing comfortably on room air. During your hospital stay you had intermittent runs of V. tach and also had EKG changes for which you underwent a stress test. This was noted to be abnormal. You will follow-up with your primary care physician who is expected to refer you to cardiology. Since you are with the [facility] for insurance it is likely a referral would need to be to a [facility] operator/assistant foreman. He would likely undergo coronary angiogram in the outpatient setting. Your creatinine at time of discharge was 1.8. BUN was 53. By the time of discharge your BNP was 1422. You will be continued on Lasix 40 mg p.o. daily upon discharge. I will continue to hold your spironolactone and will defer the decision to resume to your primary care physician who is ordering provider. You were also placed on metoprolol succinate 25 mg p.o. daily. You will be discharged home with home health PT OT. Assessment: Explained to you and your daughter. No Smoking: If you smoke, Please STOP! Call for help.
[2020-11-15] MEDS: HEPARIN 5,000 UNIT/ML VIAL SUBQ SCH (08:24)
[2020-11-15] MEDS: CETIRIZINE 10 MG TABLET PO SCH (08:25)
[2020-11-15] MEDS: MULTIVITAMIN W/MINERALS TABLET PO SCH (08:25)
[2020-11-15] MEDS: ASPIRIN EC 81 MG TABLET PO SCH (08:25)
[2020-11-15] MEDS: FUROSEMIDE 40 MG TABLET PO SCH (08:26)
[2020-11-15] MEDS: NICOTINE 14 MG PATCH TOP SCH (08:26)
[2020-11-15] MEDS: NYSTATIN POWDER 15 GM TOP SCH (08:27)
[2020-11-15] MEDS: METOPROLOL SUCCINATE 25 MG TABLET PO SCH (08:27)
[2020-11-15] MEDS: SODIUM CHLORIDE FLUSH 0.9% 10 ML SYRINGE IVP SCH (08:28)
[2020-11-15] MEDS: FLUTICASONE NASAL SPRAY NAS SCH (08:28)
[2020-11-15 11:50] VITALS: BP 103/71
== END 2020-11-15 13:41 | disposition home health service (06) | DRG 189 ==
LOC: EDBD → EDUNIT# → ED 09:30 → MS2 11:19
PROVIDERS: ADMIT Internal Medicine; ATTEND Internal Medicine
PROC: 0W9B3ZZ Drainage of Left Pleural Cavity, Percutaneous Approach (ICD-10-PCS; principal; 2020-11-06)
DX: I11.0 Hypertensive heart disease with heart failure (principal); I50.9 Heart failure, unspecified; R09.02 Hypoxemia; R06.01 Orthopnea; R19.7 Diarrhea, unspecified; J96.01 Acute respiratory failure with hypoxia; R60.0 Localized edema; F17.200 Nicotine dependence, unspecified, uncomplicated; R53.1 Weakness; Z20.822 Contact with and (suspected) exposure to COVID-19; I50.23 Acute on chronic systolic (congestive) heart failure; I13.0 Hypertensive heart and chronic kidney disease with heart failure and stage 1 through stage 4 chronic kidney disease, or unspecified chronic kidney disease; N17.9 Acute kidney failure, unspecified; I47.2 Ventricular tachycardia; J90 Pleural effusion, not elsewhere classified; N18.9 Chronic kidney disease, unspecified; F17.210 Nicotine dependence, cigarettes, uncomplicated; R77.8 Other specified abnormalities of plasma proteins; H35.30 Unspecified macular degeneration; E83.42 Hypomagnesemia; Z79.899 Other long term (current) drug therapy; R94.39 Abnormal result of other cardiovascular function study
CPT/HCPCS: 32555; 36415; 51798; 71045; 78452; 80048; 80053; 81599; 83690; 83735; 83880; 84100; 84443; 84484; 85025; 85610; 87070; 87205; 87631; 89051; 93005; 93017; 93306; 93308; 93970; 94640; 94761; 96374; 97110; 97116; 97162; 97165; 97530; 97535; 99284; 99285; A9270; A9500; J2785; 0202U

== ENCOUNTER 2021-03-05 10:57 | Outpatient (CLI) | payer MEDICARE ==
[2021-03-05 15:13] LABS: CALCIUM 8.8 mg/dL (8.5-10.3); CREATININE 1.6 mg/dL (0.4-1.0); POTASSIUM 4.3 mmol/L (3.5-5.0)
== END 2021-03-05 10:58 | disposition home or self-care (01) ==
LOC: LAB.S 10:57
PROVIDERS: ATTEND Nurse Practitioner Family
DX: E87.6 Hypokalemia (principal)
CPT/HCPCS: 36415; 80048

== ENCOUNTER 2021-06-01 11:41 | Outpatient (CLI) | payer MEDICARE | END 2021-06-01 11:42 | disposition short-term general hospital (02) | LOC: EMS 11:41 | DX: R53.1 Weakness (principal); R20.0 Anesthesia of skin; R94.31 Abnormal electrocardiogram [ECG] [EKG] | CPT/HCPCS: A0425; A0429 ==

== ENCOUNTER 2021-07-09 09:56 | Outpatient (CLI) | payer MEDICARE ==
[2021-07-09 15:25] LABS: BUN - BLOOD UREA NITROGEN 28 mg/dL (6-20); CALCIUM 8.9 mg/dL (8.5-10.3); CARBON DIOXIDE - CO2 30 mmol/L (21-32); CHLORIDE 90 mmol/L (101-111); CHOL/HDL RATIO 2.3 (<4.4); CHOLESTEROL 194 mg/dL; CREATININE 1.9 mg/dL (0.4-1.0); GFR - MDRD 25 (>89); GLUCOSE 95 mg/dL (70-100); HDL CHOLESTEROL 85 mg/dL; LDL CHOLESTEROL,CALCULATED 93 mg/dL; LDL/HDL RATIO 1.1 (<4.4); POTASSIUM 3.8 mmol/L (3.5-5.0); SODIUM 131 mmol/L (135-145); TRIGLYCERIDES 82 mg/dL; VLDL CHOLESTEROL 16 mg/dL
== END 2021-07-09 09:57 | disposition home or self-care (01) ==
LOC: LAB.S 09:56
PROVIDERS: ATTEND Nurse Practitioner Family
DX: I50.9 Heart failure, unspecified (principal); E78.5 Hyperlipidemia, unspecified
CPT/HCPCS: 36415; 80048; 80061; 83721

== ENCOUNTER 2022-02-12 09:41 | Inpatient (IN) | payer MEDICARE ==
--- NOTE | 2022-02-12 09:53 | ED Physician Documentation ---
PD HPI DYSPNEA - Stated complaint Stated Complaint: SOA - Chief complaint Chief Complaint: Resp - History obtained from History obtained from: Patient, EMS - History of Present Illness Timing - onset: How many days ago (pogressive over several days to a week. No change in diet nor meds.) Timing - onset during: Light activity Timing - duration: Days, Weeks (1) Timing - details: Gradual onset Inciting event(s): No: Out of meds, URI, Immobilization/travel Improved by: Rest, Sitting up Worsened by: Exertion, Laying flat Associated symptoms: Wheezing, Chest pain / discomfort, Diaphoresis, Bilateral edema. No: Fever, Cough, Unilateral edema Similar symptoms before: Diagnosis (CHF) Recently seen: Not recently seen Review of Systems Constitutional: denies: Fever, Chills Nose: denies: Rhinorrhea / runny nose, Congestion Throat: denies: Sore throat Respiratory: denies: Cough GI: reports: Nausea. denies: Abdominal Pain, Vomiting, Diarrhea : denies: Dysuria, Frequency Musculoskeletal: reports: Extremity swelling, Other (bruises on both upper arms from mid biceps to elbows, purple. She is not aware of injury. She states she did lift a heavy pot up to shelf and may have rested against her arms. She denies being lifting, grabbed, nor falling.) Neurologic: reports: Generalized weakness. 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 Derm: Skin cancer surgery - Present Medications Home Medications: Ambulatory Orders Medication Instructions Recorded Confirmed Atorvastatin [Lipitor] 20 mg PO QPM 08/28/14 11/07/20 Cholecalciferol [Vitamin D3] 3 cap PO DAILY 11/05/20 11/05/20 Vit A/Vit C/Vit E/Zinc/Copper 1 each PO DAILY 11/05/20 11/07/20 [Preservision Areds Softgel] Furosemide [Lasix] 40 mg PO DAILY 30 Days #30 tablet 11/15/20 Ciclesonide [Alvesco] 02/12/22 Metoprolol Succinate [Toprol Xl] 50 mg PO DAILY 02/12/22 - Allergies Allergies/Adverse Reactions: Allergies Allergy/AdvReac Type Severity Reaction Status Date / Time lisinopril AdvReac Respiratory Verified 11/05/20 09:47 - Social History Does the pt smoke?: Yes Smoking Status: Current every day smoker Does the pt drink ETOH?: Yes Does the pt have substance abuse?: No - POLST Patient has POLST: No POLST Status: Full Code PD ED PE NORMAL - Vitals Vital signs reviewed: Yes (hypoxic at 89-90% RA) - General General: Alert and oriented X 3, Well developed/nourished, Other (Initially some partial sentence dyspnea. She is more comfortable sitting straighter upright. No accessory muscles.) - HEENT HEENT: Moist mucous membranes, Pharynx benign - Neck Neck: Supple, no meningeal sign, No adenopathy, No bruit, Other (JVD noted at 45 degrees.) - Cardiac Cardiac: RRR - Respiratory Respiratory: No: Clear bilaterally (fine crackles lower half of lung moreno. No coarse sounds. ) - Abdomen Abdomen: Normal bowel sounds, Soft, Non distended, No organomegaly - Female Female : Deferred - Rectal Rectal: Deferred - Back Back: No CVA TTP - Derm Derm: Normal color, Warm and dry - Extremities Extremities: No calf tenderness / cord, Other (2++ pitting edema in both lower legs to above the knees. Mild uniform redness both lower legs circumferentially. Mild blistering noted anterior right lower leg. ). No: Normal ROM s pain (pain with raising both arms above shoulder height. Bruising noted both upper arms to elbows, purple color. Biceps feel intact bilaterally though pain with flexion. She denies injury. ) - Neuro Neuro: Alert and oriented X 3, No motor deficit, No sensory deficit, Normal speech Results - Vitals Vitals: Vital Signs - 24 hr 02/12/22 02/12/22 02/12/22 09:41 11:09 11:42 Temperature 36.6 C Heart Rate 71 65 68 Respiratory 24 10 L 22 Rate Blood Pressure 215/90 H O2 Saturation 90 L 98 02/12/22 02/12/22 02/12/22 13:00 15:00 15:33 Temperature Heart Rate 64 67 Respiratory 22 22 Rate Blood Pressure 220/97 H O2 Saturation 99 99 Oxygen O2 Source [With Activity] Nasal cannula O2 Source Nasal cannula - EKG (time done) 10:44 Rate: Rate (enter#) (63) Rhythm: NSR [place]: Normal Intervals: Normal TN QRS: Normal Ischemia: Normal ST segments. No: ST elevation c/w ischemia, ST depression - Labs Labs: Laboratory Tests 02/12/22 02/12/22 02/12/22 10:28 10:28 10:28 WBC 7.1 RBC 3.81 L Hgb 11.3 L Hct 33.8 L MCV 88.7 MCH 29.7 MCHC 33.4 RDW 16.0 H Plt Count 249 MPV 9.6 Neut # (Auto) 6.0 Lymph # (Auto) 0.6 L Mccormick # (Auto) 0.4 Eos # (Auto) 0.1 Baso # (Auto) 0.1 Absolute Nucleated RBC 0.00 Nucleated RBC % 0.0 Sodium 138 Potassium 4.0 Chloride 102 Carbon Dioxide 25 Anion Gap 11.0 BUN 30 H Creatinine 2.0 H Estimated GFR (MDRD) 24 L Glucose 100 Calcium 9.2 Magnesium 1.6 L Total Bilirubin 0.8 AST 20 ALT 19 Alkaline Phosphatase 96 Troponin I High Sens 41.2 H* B-Natriuretic Peptide Total Protein 6.5 L Albumin 3.2 Globulin 3.3 Albumin/Globulin Ratio 1.0 Lipase 31 SARS-CoV-2 (PCR) 02/12/22 02/12/22 02/12/22 10:28 14:08 17:33 WBC RBC Hgb Hct MCV MCH MCHC RDW Plt Count MPV Neut # (Auto) Lymph # (Auto) Mccormick # (Auto) Eos # (Auto) Baso # (Auto) Absolute Nucleated RBC Nucleated RBC % Sodium 137 Potassium 3.8 Chloride 101 Carbon Dioxide 26 Anion Gap 10.0 BUN 30 H Creatinine 2.1 H Estimated GFR (MDRD) 22 L Glucose 147 H Calcium 9.2 Magnesium Total Bilirubin AST ALT Alkaline Phosphatase Troponin I High Sens B-Natriuretic Peptide 5310.00 H Total Protein Albumin Globulin Albumin/Globulin Ratio Lipase SARS-CoV-2 (PCR) NOT DETECTED - Rads (name of study) chest xray Radiology: Prelim report reviewed (vascular congestion c/w edema), See rad report bilateral humerus Radiology: Prelim report reviewed (no fractures), See rad report PD MEDICAL DECISION MAKING - ED course Complexity details: reviewed old records (Patient had a echocardiogram October 2020 showing decreased ejection fraction 45 to 50% and concentric hypertrophy. No valvular disorder.), reviewed results, re-evaluated patient (She had a pure wick applied by nursing so she did not have to get up to the bathroom. She has diuresed approximately 500 mL so far on recheck. We will consider reducing the Lasix had a 4 to 6-hour interval if still in the ER.), considered differential (Symptoms are consistent with CHF with edema fine crackles weight gain and orthopnea. There is some element of wheezing to and she has been a smoker so gave a nebulizer treatment as well. Main focus was diuretics.) ED course: I talked with the hospitalist for placement in the hospital. There were several admissions at the same time so she will get to the patient as soon as possible. We are continuing diuresis here in the ER. Her blood pressure did remain high over an interval of time so I did apply some nitro paste as well. She is feeling much more comfortable and breathing more easily. She has diuresed approximately 1200 mL while here in the ER so far. The hospitalist did call back and ask if the patient was still meeting criteria for hospitalization. At this point we will try her off oxygen and bedside ambulati on and see how she does. She is breathing more comfortably for sure. Departure - Departure Disposition: ED Place in Observation Clinical Impression: CHF exacerbation, Dyspnea, Hypoxia Condition: Stable Record reviewed to determine appropriate education?: Yes
--- OUTSIDE RECORDS SUMMARY | 2022-02-12 10:22 | EXTERNAL MEDICAL SUMMARY RPT | Continuity of Care Document ---
:1940 Author Organization [facility] Address [address] [place] [address] Phone Allergies No information. Encounters No information. Functional Status No information. Immunizations No information. Medications date description facility [id number] furosemide [facility] [place] [id number] metoprolol succinate [facility] [place] [id number]+0000 furosemide [facility] [place] [id number]+0000 ciclesonide [facility] [place] [id number]+0000 ciclesonide [facility] [place] [phone]+0000 metoprolol succinate [facility] [place] Problems No information. Procedures date description facility [id number] Visit Code Hold [facility] [place] Results/Labs No information. Social History date description facility [id number] Current every day smoker [facility] Vital Signs date measurement value units [id number]+0000 BMI BMI 19.37 kg/m2 [id number]+0000 BP_diastolic BP_diastolic 89 mm[H g] [id number]+0000 BP_systolic BP_systolic 121 mm[Hg] 58485719110014+0000 heart_rate heart_rate 120 /min [id number]+0000 height_metric height_metric 165.1 cm [id number]+0000 height_standard height_standard 65 in [id number]+0000 respiration_rate respiration_rate 20 /min [id number]+0000 temperature_metric temperature_metric 36.61 C [id number]+0000 temperature_standard temperature_standard 9 7.9 F [id number]+0000 weight_metric weight_metric 52.62 kg [id number]+0000 weight_standard weight_standard 116 lb
--- NOTE | 2022-02-12 10:26 | XRAY Report ---
PROCEDURE: Chest 1 View X-Ray INDICATIONS: dyspnea TECHNIQUE: One view of the chest was acquired. COMPARISON: Chest 720 FINDINGS: Surgical changes and devices: None. Lungs and pleura: There is a mild left effusion. Increased pulmonary vascularity is present. Mediastinum: Mediastinal contours appear normal. Heart size is large. Bones and chest wall: No suspicious bony lesions. Overlying soft tissues appear unremarkable. IMPRESSION: Cardiomegaly with increased vascularity and left effusion suggestive of edema. Reviewed by: Shalini Echevarria MD on 02/12/2022 10:24 AM PDT Approved by: Shalini Echevarria MD on 02/12/2022 10:24 AM PDT Station ID: [id number]
[2022-02-12 10:37] LABS: BASOPHILS # (AUTO) 0.1 10^3/uL (0.0-0.1); BASOPHILS % (AUTO) 0.7 %; EOSINOPHILS # (AUTO) 0.1 10^3/uL (0.0-0.7); EOSINOPHILS % (AUTO) 0.7 %; HCT - HEMATOCRIT 33.8 % (37.0-47.0); HGB - HEMOGLOBIN 11.3 g/dL (12.0-16.0); LYMPHOCYTES # (AUTO) 0.6 10^3/uL (1.5-3.5); LYMPHOCYTES % (AUTO) 8.6 %; MEAN CORPUSCULAR HEMOGLOBIN 29.7 pg (27.0-31.0); MEAN CORPUSCULAR HGB CONC 33.4 g/dL (32.0-36.0); MEAN CORPUSCULAR VOLUME 88.7 fL (81.0-99.0); MEAN PLATELET VOLUME 9.6 fL (7.9-10.8); MONOCYTES # (AUTO) 0.4 10^3/uL (0.0-1.0); NEUTROPHILS % (AUTO) 84.6 %; PLT - PLATELET COUNT 249 10^3/uL (130-450); RED BLOOD COUNT 3.81 10^6/uL (4.20-5.40); WHITE BLOOD COUNT 7.1 x10^3/uL (4.8-10.8)
[2022-02-12 10:48] LABS: ALBUMIN 3.2 g/dL (3.2-5.5); BILIRUBIN,TOTAL 0.8 mg/dL (0.2-1.0); CALCIUM 9.2 mg/dL (8.5-10.3); MAGNESIUM 1.6 mg/dL (1.7-2.8); TOTAL PROTEIN 6.5 g/dL (6.7-8.2)
[2022-02-12] MEDS ORDERED: FUROSEMIDE 40 MG/4 ML VIAL IVP STA ×2 (10:55→17:18)
[2022-02-12] MEDS ORDERED: ALBUTEROL 1 PUFF INH STA (10:55)
[2022-02-12] MEDS ORDERED: MAGNESIUM SULFATE 2 GRAM 2 GM/50 ML BAG IV ONE (11:20)
--- NOTE | 2022-02-12 11:36 | XRAY Report ---
PROCEDURE: Humerus BILAT INDICATIONS: bruising and pain on ROM TECHNIQUE: AP and lateral views of the bilateral humerus were acquired. COMPARISON: None FINDINGS: Bones: Diffuse osteopenia. No acute fractures or dislocations. No suspicious bony lesions. Moderat e degenerative changes of the bilateral shoulders. Degenerative changes of the bilateral elbows. Alth ough not optimally positioned, suggestion of high riding humeral heads with joint space loss of the s ubacromial space bilaterally. Soft tissues: No suspicious soft tissue calcifications. Surgical clips noted in the bilateral axill a. IMPRESSION: Diffuse osteopenia. No acute fracture or suspicious abnormality of the bilateral humeri. Degenerative changes of the shoulder and elbow bilaterally. Suggestion of high riding bilateral humeral head with narrowing of the subacromial space suggestive of sequela of chronic rotator cuff tear. If there is continued clinical concern for pathology or occult fracture, consider follow-up imaging w ith repeat radiographs in 10-14 days and possible advanced imaging (CT, MRI, bone scan) if symptoms p ersist. Reviewed by: Chris Ching MD on 02/12/2022 11:35 AM PDT Approved by: Chris Ching MD on 02/12/2022 11:35 AM PDT Station ID: [id number]
[2022-02-12 17:47] LABS: CALCIUM 9.2 mg/dL (8.5-10.3); CREATININE 2.1 mg/dL (0.4-1.0); POTASSIUM 3.8 mmol/L (3.5-5.0)
[2022-02-12] MEDS ORDERED: NITROGLYCERIN 2% PASTE TOP STA (18:12)
--- NOTE | 2022-02-12 18:58 | ED Physician Documentation ---
ED Addendum - Addendum Addendum: 02/12/22 18:[address] Yu who left for shift change, Dr. Dockery called and wondered if she truly need to be admitted since it seemed like she was doing better. We ambulated her on room air and could only walk a few feet before desatting to 84% and Dr. Dockery was updated.
[2022-02-12] MEDS ORDERED: ONDANSETRON 4 MG/2 ML VIAL IVP PRN (21:10)
--- NOTE | 2022-02-12 21:17 | HISTORY & PHYSICAL EXAMINATION ---
Chief Complaint - Chief Complaint Chief Complaint: weakness, dyspnea History of Present Illness - Admitted From [facility] - History Obtained From Records Reviewed: yes History obtained from: patient - History of Present Illness HPI Comment/Other: Patient is an 82-year-old female who presented to the ED with initial complaint of weakness and bruises on both upper arms from the mid biceps to the elbow. She denied being aware of any injury. However while in the ED she was noted to be hypoxic with oxygen saturation dropping to 84% on room air. Work-up included a BNP which was elevated at 5300. She also has +1 lower extr emity edema and her left lower extremity and trace in the right. As a result of the above she was presented for admission for further treatment. At bedside she is resting comfortably however she reports mild dyspnea. She denies chest pain, abdominal pain, nausea, vomiting, fever or chills. 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 Daughter has migraines Living Situation: Alone Social History Notes: She has been smoking at least 1 pack/day for 61 years. She rarely drinks alcohol. No recreational substance use. - POLST Patient has POLST: No POLST Status: Full Code Meds/Allgy - Home Medications Home Medications: Ambulatory Orders Medication Instructions Recorded Confirmed Atorvastatin [Lipitor] 20 mg PO QPM 08/28/14 11/07/20 Cholecalciferol [Vitamin D3] 3 cap PO DAILY 11/05/20 11/05/20 Vit A/Vit C/Vit E/Zinc/Copper 1 each PO DAILY 11/05/20 11/07/20 [Preservision Areds Softgel] Furosemide [Lasix] 40 mg PO DAILY 30 Days #30 tablet 11/15/20 Ciclesonide [Alvesco] 02/12/22 Metoprolol Succinate [Toprol Xl] 50 mg PO DAILY 02/12/22 - Allergies Allergies/Adverse Reactions: Allergies Allergy/AdvReac Type Severity Reaction Status Date / Time lisinopril AdvReac Respiratory Verified 11/05/20 09:47 Review of Systems - Constitutional Constitutional: reports: Weakness. denies: Fatigue, Fever, Chills - Eyes Eyes: denies: Pain - Ears, Nose & Throat Ears, Nose & Throat: denies: Sore throat - Cardiovascular Cariovascular: reports: Edema. denies: Irregular heart rate, Palpitations, Chest pain - Respiratory Respiratory: reports: SOB at rest, SOB with exertion. denies: Cough, Sputum production, Wheezing - Gastrointestinal Gastrointestinal: denies: Abdominal pain, Abdominal distention, Constipation, Diarrhea, Nausea, Vomiting - Genitourinary Genitourinary: denies: Dysuria, Frequency, Urgency, Hematuria - Musculoskeletal Musculoskeletal: denies: Muscle pain, Back pain, Muscle aches - Integumentary Integumentary: denies: Rash, Pruritis, Lesions, Dryness - Neurological Neurological: denies: General weakness, Focal weakness, Headache, Dizziness - Psychiatric Psychiatric: denies: Depression, Anxiety, Suicidal - Endocrine Endocrine: denies: Polyuria, Polydypsia - Hematologic/Lymphatic Hematologic/Lymphatic: reports: Bruising. denies: Anemia Prior Level of Functionality: She is normally independent of activities of daily living. Exam - Vital Signs Vital Signs: Vital Signs x48h Pulse Resp BP Pulse Ox 02/12/22 21:00 68 21 125/96 H 88 L 02/12/22 19:00 68 26 H 123/92 H 98 02/12/22 15:33 220/97 H 02/12/22 15:00 67 22 99 - Physical Exam General Appearance: positive: No acute distress, Alert Eyes Bilateral: positive: PERRL, EOMI ENT: positive: No signs of dehydration Neck: positive: No JVD, Trachea midline Respiratory: positive: Chest non-tender, Other (Coarse breath sounds, mild dyspnea). negative: Wheezes, Rales, Rhonchi Back: positive: Nml inspection Skin: positive: Color nml, No rash, Warm, Dry, Other (bruise on bilateral upper extremity) Extremities: positive: Non-tender, Full ROM, Nml appearance, Pedal edema (Left > right) Neurologic/Psychiatric: positive: Oriented x3, Mood/affect nml Conclusion/Plan - Problem List (1) CHF exacerbation Conclusion/Plan: Patient's BNP was 5300 Given Lasix 80 mg IV x1 in the ED. Will continue Lasix 40 mg IV twice daily. Low-sodium diet ordered. Patient on metoprolol succinate 50 mg p.o. daily. We will obtain a 2D echocardiogram if and/or when available. (2) Acute respiratory failure with hypoxia Conclusion/Plan: Likely secondary to CHF exacerbation. On room air patient's oxygen saturation drops to 84 to 88%. She is currently on 2 L of oxygen with oxygen saturation between 93 and 100%. Anticipating further improvement in oxygenation with diuresis. (3) Acute kidney injury superimposed on CKD Conclusion/Plan: Likely related to CHF exacerbation. Creatinine was 2.1 with BUN 30 and estimated GFR of 22. We will continue to monitor renal function with BMP. (4) Elevated troponin Conclusion/Plan: Likely due to CHF exacerbation. Initial troponin was 41.2 with a repeat of 75.1. We will check troponin again in the morning. Patient denies chest pain. We will obtain a 2D echocardiogram if and/or when available. (5) Hypertension Conclusion/Plan: On metoprolol succinate 50 mg p.o. daily. Currently on Lasix 40 mg IV twice daily. (6) Tobacco abuse Conclusion/Plan: Nicotine patch ordered. (7) Hyperlipidemia Conclusion/Plan: We will hold patient's atorvastatin for now. Patient is complaining of upper extremity weakness which could be worsened by atorvastatin. - Lab Results Fish Bones: 02/12/22 10:28 02/12/22 17:33 Core Measures - Anticipated LOS I expect patient to be DC'd or transferred within 96 hours.: Yes - DVT/VTE - Prophylaxis VTE/DVT Device ordered at admit?: Yes VTE/DVT Prophylaxis med ordered at admit?: Yes
[2022-02-13] MEDS: SODIUM CHLORIDE FLUSH 0.9% 10 ML SYRINGE IVP SCH ×3 (00:15→16:27)
[2022-02-13] MEDS: FUROSEMIDE 40 MG/4 ML VIAL IVP SCH ×2 (05:15→14:25)
[2022-02-13 06:08] LABS: BASOPHILS # (AUTO) 0.1 10^3/uL (0.0-0.1); EOSINOPHILS # (AUTO) 0.1 10^3/uL (0.0-0.7); EOSINOPHILS % (AUTO) 1.2 %; HCT - HEMATOCRIT 34.4 % (37.0-47.0); HGB - HEMOGLOBIN 10.9 g/dL (12.0-16.0); LYMPHOCYTES # (AUTO) 0.8 10^3/uL (1.5-3.5); LYMPHOCYTES % (AUTO) 8.3 %; MEAN CORPUSCULAR HEMOGLOBIN 28.5 pg (27.0-31.0); MEAN CORPUSCULAR HGB CONC 31.7 g/dL (32.0-36.0); MEAN CORPUSCULAR VOLUME 89.8 fL (81.0-99.0); MEAN PLATELET VOLUME 9.7 fL (7.9-10.8); MONOCYTES # (AUTO) 0.7 10^3/uL (0.0-1.0); MONOCYTES % (AUTO) 7.4 %; NEUTROPHILS # (AUTO) 8.1 10^3/uL (1.5-6.6); NEUTROPHILS % (AUTO) 81.7 %; PLT - PLATELET COUNT 237 10^3/uL (130-450); RED BLOOD COUNT 3.83 10^6/uL (4.20-5.40); RED CELL DISTRIBUTION WIDTH 15.9 % (12.0-15.0); WHITE BLOOD COUNT 9.9 x10^3/uL (4.8-10.8)
[2022-02-13 06:18] LABS: CREATININE 2.2 mg/dL (0.4-1.0); POTASSIUM 3.7 mmol/L (3.5-5.0)
[2022-02-13] MEDS: METOPROLOL SUCCINATE 50 MG TABLET PO SCH (10:58)
[2022-02-13] MEDS: NICOTINE 14 MG PATCH TOP SCH (10:58)
[2022-02-13] MEDS: SODIUM CHLORIDE FLUSH 0.9% 10 ML SYRINGE IVP PRN (14:25)
[2022-02-13] MEDS: ACETAMINOPHEN 325 MG TABLET PO PRN ×2 (16:27→21:04)
--- NOTE | 2022-02-13 18:32 | PROVIDER PROGRESS NOTE ---
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 The Echo showed: Severely dilated left atrium, moderately dilated right atrium. Normal aortic root size with mural atherosclerosis. LV size enlarged, concentric left ventricular perjury moderate, severe global LV hypokinesis, EF 20%. Right ventricle dilated mildly, mildly reduced RV function. Mitral and aortic valves are sclerotic. Tricuspid and pulmonic valves appear structurally normal. Doppler shows severe mitral regurgitation, severe aortic regurgitation, moderate tricuspid regurgitation. Pulmonary artery systolic pressure estimated at 35 to 40 mmHg. No pericardial. Imp: Dilated cardiomyopathy Since Echo done here in 2020, LV function has decreased from 40%, other findings are similar.
--- NOTE | 2022-02-13 18:44 | PROVIDER PROGRESS NOTE ---
Assessment/Plan - Problem List (1) Acute on chronic systolic heart failure Assessment/Plan: Patient's BNP was 5300. Her presentation with mild leg edema, orthopnea and BURGOS are consistent with CHF exacerbation. Her last echo here in 2020 and at [facility] in June 2021 showed LVEF of 40 to 45%. I performed an Echo on this patient myself today and she has a dilated LV, LVH, severe global hypokinesis with EF 20%. Etiology may be hypertensive heart disease versus valvular heart disease since she has severe mitral regurgitation and aortic regurgitation Will continue Lasix 40 mg IV twice daily. Low-sodium diet ordered. Patient on metoprolol succinate 50 mg p.o. daily. Will add ANDREW or ARB, spironolactone. We have no Entresto on formulary here. Follow I's and O's and daily weight (2) Acute respiratory failure with hypoxia Conclusion/Plan: Likely secondary to CHF exacerbation. She also has COPD by clinical evaluation and may have a mild COPD exacerbation as well On room air patient's oxygen saturation drops to 84 to 88%. She is currently on 2 L of oxygen with oxygen saturation between 93 and 100%. Anticipating further improvement in oxygenation with diuresis. Will also increase management for her underlying COPD with duo nebs, Pulmicort nebs, Singulair at at bedtime (3) COPD with exacerbation She was a lifelong smoker, who quit 2-3 weeks ago. A Nicotine patch was still required. Will also increase management for her underlying COPD with duo nebs, Pulmicort nebs, Singulair at at bedtime (4) Bilateral arm weakness and bilateral arm ecchymosis The patient has no idea how she got nearly symmetrical ecchymoses in the upper arms bilaterally. She says she "woke up 1 day with that". She denies having any trauma, does not think that the grandchildren who live with her might of done this. She denies any trauma like falling on both sides. She describes weakness and cannot lift her arms but does not say that the shoulders are painful. Will consider C-spine CT scan to rule out spinal cord problem and will consider orthopedic consult. PT evaluation also ordered (5) Acute kidney injury superimposed on CKD Conclusion/Plan: Likely related to CHF exacerbation (cardio-renal syndrome) Avoid nephrotoxins We will continue to monitor renal function with BMP done daily (6) Elevated troponin Conclusion/Plan: Troponins were 41.2>> 75>> 80. Likely due to CHF exacerbation and not in a pattern of ACS. Patient denied having chest pain. Unknown if she has had CAD eval. Will consider ordering 1 baby ASA daily, except that her extensive, bilateral, circumferential arm bruises have unknown etiology (7) Hypertension Conclusion/Plan: On metoprolol succinate 50 mg p.o. daily. Currently on Lasix 40 mg IV twice daily. We will be adding spironolactone and ANDREW or ARB which will also help with blood pressure control (8) Tobacco abuse Conclusion/Plan: Nicotine patch ordered. (9) Hyperlipidemia Conclusion/Plan: We will hold patient's atorvastatin for now. Patient is complaining of upper extremity weakness which could be worsened by atorvastatin. - Current Meds Current Meds: Current Medications Generic Name Dose Route Start Last Admin Trade Name Freq PRN Reason Stop Dose Admin Acetaminophen 650 mg 02/12/22 21:10 02/13/22 16:27 Acetaminophen 325 Mg Tablet PO 650 mg Q4HR PRN Administration Pain 1 to 4, or Fever Furosemide 40 mg 02/13/22 06:00 02/13/22 14:25 Furosemide 40 Mg/4 Ml Vial IVP 40 mg BIDDIURETIC KEESHA Administration Metoprolol Succinate 50 mg 02/13/22 09:00 02/13/22 10:58 Metoprolol Succinate 50 Mg Tablet PO 50 mg DAILY KEESHA Administration Nicotine 1 patch 02/13/22 09:00 02/13/22 10:58 Nicotine 14 Mg Patch TOP 1 patch DAILY KEESHA Administration Sodium Chloride 10 ml 02/12/22 21:10 02/13/22 14:25 Sodium Chloride Flush 0.9% 10 Ml Syringe IVP 10 ml PRN PRN Administration NEEDED PER PROVIDER ORDERS Sodium Chloride 10 ml 02/13/22 01:00 02/13/22 16:27 Sodium Chloride Flush 0.9% 10 Ml Syringe IVP 10 ml 0100,0900,1700 KEESHA Administration - Lab Result Fish Bone Diagrams: 02/14/22 06:27 02/14/22 06:27 - Additional Planning My Orders: My Active Orders 02/13/22 Evaluate and Treat PT [PT] Routine 02/13/22 10:53 Benzocaine/Menthol [Cepacol] 1 lozenge MM Q2HR PRN 02/13/22 Lunch DIET [Low Sodium Diet] [DIET] 02/14/22 05:00 MAGNESIUM [CHEM] DAILYLAB 02/15/22 05:00 MAGNESIUM [CHEM] DAILYLAB 02/16/22 05:00 MAGNESIUM [CHEM] DAILYLAB Subjective - Subjective Patient Reports: Feeling Better (She is able to lie flat now without developing shortness of breath. She still has weakness in her shoulders and cannot lift her arms higher than her shoulders) Objective Vital Signs: Vital Signs - 24 hr 02/12/22 02/12/22 02/12/22 19:00 21:00 21:14 Temperature Heart Rate 68 68 82 Heart Rate [ Brachial] Heart Rate [ Sitting] Respiratory 26 H 21 25 H Rate Blood Pressure 123/92 H 125/96 H 129/73 Blood Pressure [Left Radial artery] Blood Pressure [Sitting] O2 Saturation 98 88 L 100 O2 Saturation [ With Activity] O2 Saturation [ Without Activity] 02/12/22 02/13/22 02/13/22 21:55 00:00 05:15 Temperature 36.9 C 36.3 C L 36.5 C Heart Rate Heart Rate [ 75 65 70 Brachial] Heart Rate [ Sitting] Respiratory 20 20 20 Rate Blood Pressure Blood Pressure 119/91 H 140/69 H 112/76 [Left Radial artery] Blood Pressure [Sitting] O2 Saturation 93 96 94 O2 Saturation [ With Activity] O2 Saturation [ Without Activity] 02/13/22 02/13/22 02/13/22 07:55 12:30 12:35 Temperature 36.5 C 36.5 C Heart Rate Heart Rate [ 57 L 65 Brachial] Heart Rate [ 118 H Sitting] Respiratory 20 20 Rate Blood Pressure Blood Pressure 122/91 H 125/90 H [Left Radial artery] Blood Pressure 198/87 H [Sitting] O2 Saturation 92 96 O2 Saturation [ 86 L With Activity] O2 Saturation [ 96 Without Activity] 02/13/22 15:50 Temperature 36.5 C Heart Rate Heart Rate [ 81 Brachial] Heart Rate [ Sitting] Respiratory 17 Rate Blood Pressure Blood Pressure 101/74 [Left Radial artery] Blood Pressure [Sitting] O2 Saturation 97 O2 Saturation [ With Activity] O2 Saturation [ Without Activity] Oxygen O2 Source [Without Activity] Nasal cannula O2 Source [With Activity] Nasal cannula O2 Source Nasal cannula I&O (Last 24 Hrs): Intake and Output Totals x24h 02/11/22 02/12/2222 23:59 23:59 23:59 Intake Total 50 1340 Output Total 1600 Balance 50 -260 General: Alert, Oriented x3, Other (Cachectic) HEENT: Atraumatic, PERRLA, EOMI Neck: Supple, No JVD Neuro: Alert, Other (Upper extremity strength is decreased, specifically cannot lift higher than her shoulder) Cardiovascular: Regular rate, Other (Distant heart sounds. She has bilateral mastectomy scars.) Respiratory: No respiratory distress (On O2 via nasal cannula), Wheezes (Diffusely) Abdomen: Normal bowel sounds, Soft Extremities: No clubbing, No edema, Other (The upper half of both upper extremities have ecchymoses circumferentially) - Results Results: Laboratory Results WBC 9.9 x10^3/uL (4.8-10.8) 02/13/22 05:51 RBC 3.83 10^6/uL (4.20-5.40) L 02/13/22 05:51 Hgb 10.9 g/dL (12.0-16.0) L 02/13/22 05:51 Hct 34.4 % (37.0-47.0) L 02/13/22 05:51 MCV 89.8 fL (81.0-99.0) 02/13/22 05:51 MCH 28.5 pg (27.0-31.0) 02/13/22 05:51 MCHC 31.7 g/dL (32.0-36.0) L 02/13/22 05:51 RDW 15.9 % (12.0-15.0) H 02/13/22 05:51 Plt Count 237 10^3/uL (130-450) 02/13/22 05:51 MPV 9.7 fL (7.9-10.8) 02/13/22 05:51 Neut # (Auto) 8.1 10^3/uL (1.5-6.6) H 02/13/22 05:51 Lymph # (Auto) 0.8 10^3/uL (1.5-3.5) L 02/13/22 05:51 [place] # (Auto) 0.7 10^3/uL (0.0-1.0) 02/13/22 05:51 Eos # (Auto) 0.1 10^3/uL (0.0-0.7) 02/13/22 05:51 Baso # (Auto) 0.1 10^3/uL (0.0-0.1) 02/13/22 05:51 Absolute Nucleated RBC 0.00 x10^3/uL 02/13/22 05:51 Nucleated RBC % 0.0 /100WBC 02/13/22 05:51 Sodium 136 mmol/L (135-145) 02/13/22 05:51 Potassium 3.7 mmol/L (3.5-5.0) 02/13/22 05:51 Chloride 100 mmol/L (101-111) L 02/13/22 05:51 Carbon Dioxide 25 mmol/L (21-32) 02/13/22 05:51 Anion Gap 11.0 (6-13) 02/13/22 05:51 BUN 34 mg/dL (6-20) H 02/13/22 05:51 Creatinine 2.2 mg/dL (0.4-1.0) H 02/13/22 05:51 Estimated GFR (MDRD) 21 (>89) L 02/13/22 05:51 Glucose 102 mg/dL (70-100) H 02/13/22 05:51 Calcium 9.0 mg/dL (8.5-10.3) 02/13/22 05:51 Magnesium 2.1 mg/dL (1.7-2.8) 02/13/22 05:51 Total Bilirubin 0.8 mg/dL (0.2-1.0) 02/12/22 10:28 AST 20 IU/L (10-42) 02/12/22 10:28 ALT 19 IU/L (10-60) 02/12/22 10:28 Alkaline Phosphatase 96 IU/L (42-121) 02/12/22 10:28 Troponin I High Sens 83.4 ng/L (2.3-14.8) H* 02/13/22 05:51 B-Natriuretic Peptide 5252.00 pg/mL (5-100) H 02/13/22 05:51 Total Protein 6.5 g/dL (6.7-8.2) L 02/12/22 10:28 Albumin 3.2 g/dL (3.2-5.5) 02/12/22 10:28 Globulin 3.3 g/dL (2.1-4.2) 02/12/22 10:28 Albumin/Globulin Ratio 1.0 (1.0-2.2) 02/12/22 10:28 Lipase 31 U/L (22-51) 02/12/22 10:28 SARS-CoV-2 (PCR) NOT DETECTED 02/12/22 14:08 - Procedures Procedures: Procedures CATARAC PHACOEMULS/ASPIR (11/28/14) DRAINAGE OF LEFT PLEURAL CAVITY, PERCUTANEOUS APPROACH (11/05/20) INSERT LENS AT CATAR EXT (11/28/14)
[2022-02-13] MEDS ORDERED: ATORVASTATIN 40 MG TABLET PO SCH (21:00)
[2022-02-13] MEDS: BENZOCAINE/MENTHOL LOZENGE MM PRN (21:04)
[2022-02-14] MEDS: SODIUM CHLORIDE FLUSH 0.9% 10 ML SYRINGE IVP SCH ×4 (00:12→23:40)
[2022-02-14] MEDS: BENZOCAINE/MENTHOL LOZENGE MM PRN ×3 (00:12→21:40)
[2022-02-14] MEDS: traZODone 50 MG TABLET PO SCH ×2 (00:23→21:28)
[2022-02-14] MEDS: SODIUM CHLORIDE FLUSH 0.9% 10 ML SYRINGE IVP PRN ×2 (05:00→14:16)
[2022-02-14] MEDS: FUROSEMIDE 40 MG/4 ML VIAL IVP SCH ×2 (05:00→14:16)
[2022-02-14 06:55] LABS: BASOPHILS # (AUTO) 0.1 10^3/uL (0.0-0.1); BASOPHILS % (AUTO) 1.2 %; EOSINOPHILS # (AUTO) 0.2 10^3/uL (0.0-0.7); EOSINOPHILS % (AUTO) 2.6 %; HCT - HEMATOCRIT 32.3 % (37.0-47.0); HGB - HEMOGLOBIN 10.8 g/dL (12.0-16.0); LYMPHOCYTES % (AUTO) 15.1 %; MEAN CORPUSCULAR HEMOGLOBIN 29.4 pg (27.0-31.0); MEAN CORPUSCULAR HGB CONC 33.4 g/dL (32.0-36.0); MEAN PLATELET VOLUME 10.1 fL (7.9-10.8); MONOCYTES # (AUTO) 0.6 10^3/uL (0.0-1.0); MONOCYTES % (AUTO) 8.8 %; NEUTROPHILS # (AUTO) 4.6 10^3/uL (1.5-6.6); NEUTROPHILS % (AUTO) 71.8 %; PLT - PLATELET COUNT 217 10^3/uL (130-450); RED BLOOD COUNT 3.67 10^6/uL (4.20-5.40); RED CELL DISTRIBUTION WIDTH 15.5 % (12.0-15.0); WHITE BLOOD COUNT 6.5 x10^3/uL (4.8-10.8)
[2022-02-14 07:05] LABS: CALCIUM 8.6 mg/dL (8.5-10.3); CREATININE 2.1 mg/dL (0.4-1.0); MAGNESIUM 1.6 mg/dL (1.7-2.8); POTASSIUM 3.4 mmol/L (3.5-5.0)
--- NOTE | 2022-02-14 10:02 | PHARMACY PROGRESS NOTE ---
- Best Possible Medication History Admit Date and Time: 02/12/222109 Processed by: Pharmacy Medication History completed: Yes Patient Interview: Pt unable to participate Secondary Source(s): Physician records, Pharmacy records, Previous admit records As the person ultimately responsible for medication therapy, providers are able to order a medication from an existing home medication list in [facility] via the "Reconcile Routine" prior to Confirmation of that medication by therapeutic support staff. Such practice is discouraged except when the physician, in their clinical judgment, deems that a medical need exists for a medication without regard to previous use.
[2022-02-14] MEDS: METOPROLOL SUCCINATE 25 MG TABLET PO SCH (10:26)
[2022-02-14] MEDS: NICOTINE 14 MG PATCH TOP SCH (10:26)
[2022-02-14] MEDS: METOPROLOL SUCCINATE 50 MG TABLET PO SCH (10:27)
[2022-02-14] MEDS ORDERED: POTASSIUM CHLORIDE 10 MEQ CAPSULE PO ONE (10:36)
[2022-02-14] MEDS: MAGNESIUM OXIDE 400 MG TABLET PO SCH (11:29)
[2022-02-14] MEDS: SPIRONOLACTONE 25 MG TABLET PO SCH (12:26)
[2022-02-14] MEDS: LOSARTAN 50 MG TABLET PO SCH (12:26)
--- NOTE | 2022-02-14 14:00 | Ultrasound Report ---
PROCEDURE: Duplex Upr Ext Arterial Bilat INDICATIONS: significant difference in BP in both arms TECHNIQUE: Color and pulse Doppler interrogation was performed of both upper extremity arterial systems, with im age documentation. COMPARISON: None. FINDINGS: Right upper extremity: Blood pressure 181/60 Subclavian artery (mid): 79 cm/sec, with phasic flow. Axillary artery: 77 cm/sec, with biphasic flow. Brachial artery (mid): 82 cm/sec, with triphasic flow. Radial artery (proximal): 98 cm/sec, with triphasic flow. Radial artery (mid): 65 cm/sec, with triphasic flow. Radial artery (distal): 71 cm/sec, with triphasic flow. Ulnar artery (proximal): 47 cm/sec, with biphasic flow. Ulnar artery (mid): 46 cm/sec. with biphasic flow. Ulnar artery (distal): 33 cm/sec, with biphasic flow. Left upper extremity: Blood pressure 96/63 Subclavian artery (mid): 23 cm/sec, with monophasic flow. Axillary artery: 19 cm/sec, with monophasic flow. Brachial artery (mid): 35 cm/sec, with monophasic flow. Radial artery (proximal): 26 cm/sec, with monophasic flow. Radial artery (mid): 17 cm/sec, with monophasic flow. Radial artery (distal): 15 cm/sec. with monophasic flow. Ulnar artery (proximal): 13 cm/sec, with monophasic flow. Ulnar artery (mid): 12 cm/sec, with monophasic flow. Ulnar artery (distal): 15 cm/sec. with monophasic flow. IMPRESSION: Diminished systolic velocity and blunted monophasic waveform throughout the left upper extremity sugg ests proximal subclavian stenosis. Consider follow-up CT angiogram neck Reviewed by: Chun Macias MD on 02/14/2022 12:58 PM LUZ Approved by: Chun Macias MD on 02/14/2022 12:58 PM AKСВЕТЛАНА Station ID: [id number]
--- NOTE | 2022-02-14 14:50 | PROVIDER PROGRESS NOTE ---
Assessment/Plan - Problem List (1) Acute on chronic systolic heart failure Assessment/Plan: Patient's BNP was 5300. Her presentation with mild leg edema, orthopnea and BURGOS were consistent with CHF exacerbation. Her last echo here in [address] [facility] in June 2021 showed LVEF of 40 to 45%. I performed an Echo on this patient myself yesterday, and she has a dilated LV, LVH, severe global hypokinesis with EF 20%. Etiology may be hypertensive heart disease versus valvular heart disease since she has severe mitral regurgitation and aortic regurgitation . Will continue Lasix 40 mg IV twice daily. Low-sodium diet ordered. Patient on metoprolol succinate 50 mg p.o. daily. Will add ANDREW or ARB, spironolactone. We have no Entresto on formulary here. Follow I's and O's and daily weight. Today I spoke to the daughterDebra by phone and gave her updates on the mother's condition. (2) Acute respiratory failure with hypoxia Conclusion/Plan: Likely secondary to CHF exacerbation. She also has COPD by clinical evaluation and may have a mild COPD exacerbation as well On room air patient's oxygen saturation drops to 84 to 88%. She is currently on 2 L of oxygen with oxygen saturation between 93 and 100%. Anticipating further improvement in oxygenation with diuresis. Will also increase management for her underlying COPD with duo nebs, Pulmicort nebs, Singulair at at bedtime (3) COPD with exacerbation Conclusion/Plan: She was a lifelong smoker who quit 2-3 weeks ago. A Nicotine patch was still required. Will also increase management for her underlying COPD with duo nebs, Pulmicort nebs, Singulair at at bedtime (4)PVD Conclusion/Plan: Upon presentation, her VS were noted to have unequal BPs in both arms: L 150 syst, R 90 syst. She underwent bilateral arterial Doppler today and this showed normal flow in the left arm and blunted flow in the right arm. The radiologist recommended CTA to evaluate for right subclavian artery occl. Her creatinine is still greater than 2.0, contrast load is currently contraindicated. I will discuss with our radiologist regarding use of half dose contrast and order a CTA when it is safe to do so. Today I spoke to the daughterDebra and discussed the plan. (5) Rotator cuff tear arthropathy of both shoulders (M75.101) She presented complaining of bilateral arm weakness and we found her to have bilateral, circumferential upper arm ecchymoses. The patient cannot remember how long she had arm weakness and has no idea how she got these large, circumferential nearly symmetrical ecchymoses in the upper arms bilaterally. She says she "woke up 1 day with that". She denies having any trauma, does not think that the grandchildren who live with her might have done this. She denies any trauma like falling on both sides or on her neck. She describes weakness and cannot lift her arms but does not say that the shoulders or upper arms are painful. We ordered B shoulder XRays and this showed bilateral rotator cuff tears Will consider orthopedic consult. PT and OT evaluation also ordered Today I spoke to the daughter, Debra and asked if the patient has anyone pull her up to stand, by grabbing both upper arms. Debra answered that she has been out of town for 2 weeks, but there is a niece that takes care of her and Debra will ask the niece. (6) Acute kidney injury superimposed on CKD Conclusion/Plan: Likely related to CHF exacerbation (cardio-renal syndrome), since creat is improving, however BUN/creat ratio is increasing. Avoid nephrotoxins We will continue to monitor renal function with BMP done daily (7) Hypertension Conclusion/Plan: She was kept on her metoprolol succinate 50 mg p.o. daily. This dose needs to be decreased today due to extreme bradycardia to HR 26 when she is asleep. Currently on Lasix 40 mg IV twice daily. We will be adding spironolactone and ANDREW or ARB which will also help with blood pressure control (8) Bradycardia Conclusion/Plan: She had a heart rate of 26 and sinus rhythm overnight when asleep, was asymptomatic. We will decrease her beta-joanna dose by half Continue monitoring on telemetry (9) Hypokalemia Conclusion/Plan: Caused by iv diuresis Will replace. Follow BMP daily. (10) Hypomagnesemia Conclusion/Plan: Caused by iv diuresis Will replace. Follow BMP daily. (11) Elevated troponin Conclusion/Plan: Troponins were 41.2>> 75>> 80. Likely due to CHF exacerbation and not in a pattern of ACS. Patient denied having chest pain. Unknown if she has had CAD eval. Will consider ordering 1 baby ASA daily, except that her extensive, bilateral, circumferential arm bruises have unknown etiology (12) Tobacco abuse Conclusion/Plan: Nicotine patch ordered. (13) Hyperlipidemia Conclusion/Plan: We will hold patient's atorvastatin for now. Patient is complaining of upper extremity weakness which could be worsened by atorvastatin. - Current Meds Current Meds: Current Medications Generic Name Dose Route Start Last Admin Trade Name Freq PRN Reason Stop Dose Admin Acetaminophen 650 mg 02/12/22 21:10 02/13/22 21:04 Acetaminophen 325 Mg Tablet PO 650 mg Q4HR PRN Administration Pain 1 to 4, or Fever Furosemide 40 mg 02/13/22 06:00 02/14/22 14:16 Furosemide 40 Mg/4 Ml Vial IVP 02/14/22 23:00 40 mg BIDDIURETIC KEESHA Administration Losartan Potassium 25 mg 02/14/22 12:00 02/14/22 12:26 Losartan 50 Mg Tablet PO 25 mg 1200 KEESHA Administration Magnesium Oxide 400 mg 02/14/22 11:00 02/14/22 11:29 Magnesium Oxide 400 Mg Tablet PO 400 mg DAILYWM KEESHA Administration Metoprolol Succinate 25 mg 02/14/22 10:00 02/14/22 10:26 Metoprolol Succinate 25 Mg Tablet PO 25 mg DAILY KEESHA Administration Nicotine 1 patch 02/13/22 09:00 02/14/22 10:26 Nicotine 14 Mg Patch TOP 1 patch DAILY KEESHA Administration Sodium Chloride 10 ml 02/12/22 21:10 02/14/22 14:16 Sodium Chloride Flush 0.9% 10 Ml Syringe IVP 10 ml PRN PRN Administration NEEDED PER PROVIDER ORDERS Sodium Chloride 10 ml 02/13/22 01:00 02/14/22 10:26 Sodium Chloride Flush 0.9% 10 Ml Syringe IVP 10 ml 0100,0900,1700 KEESHA Administration Spironolactone 25 mg 02/14/22 12:00 02/14/22 12:26 Spironolactone 25 Mg Tablet PO 25 mg 1200 KEESHA Administration Throat Lozenges 1 lozenge 02/13/22 10:53 02/14/22 00:12 Benzocaine/Menthol Lozenge MM 1 lozenge Q2HR PRN Administration Cough Trazodone HCl 50 mg 02/14/22 00:15 02/14/22 00:23 Trazodone 50 Mg Tablet PO 50 mg QPM KEESHA Administration - Lab Result Fish Bone Diagrams: 02/14/22 06:27 02/14/22 06:27 - Additional Planning My Orders: My Active Orders 02/14/22 10:00 Metoprolol Succinate [Toprol Xl] 25 mg PO DAILY 02/14/22 11:00 Magnesium Oxide [Mag Ox] 400 mg PO DAILYWM 02/14/22 12:00 Losartan [Cozaar] 25 mg PO 1200 Spironolactone [Aldactone] 25 mg PO 1200 02/14/22 14:33 Shoulder 2 View BILAT [XR] Stat 02/15/22 05:00 MAGNESIUM [CHEM] DAILYLAB 02/15/22 08:00 Potassium Chloride [K-Dur] 20 meq PO DAILYWM 02/15/22 09:00 Furosemide [Lasix] 40 mg PO DAILY 02/16/22 05:00 MAGNESIUM [CHEM] DAILYLAB Subjective - Subjective Patient Reports: Feeling Better (Able to lay supine without orthopnea) Objective Vital Signs: Vital Signs - 24 hr 02/13/22 02/13/22 02/13/22 15:50 19:41 21:08 Temperature 36.5 C 36.5 C Heart Rate [ 81 60 60 Brachial] Respiratory 17 14 19 Rate Blood Pressure [Left Brachial artery] Blood Pressure 101/74 109/73 [Left Radial artery] Blood Pressure [Right Brachial artery] O2 Saturation 97 100 95 02/13/22 02/14/22 02/14/22 23:48 04:42 04:50 Temperature 36.3 C L 36.4 C L Heart Rate [ 62 50 L Brachial] Respiratory 21 20 Rate Blood Pressure [Left Brachial artery] Blood Pressure 122/92 H 155/91 H [Left Radial artery] Blood Pressure [Right Brachial artery] O2 Saturation 94 86 L 90 L 02/14/22 02/14/22 02/14/22 07:48 07:50 07:58 Temperature 36.7 C Heart Rate [ 52 L Brachial] Respiratory 20 Rate Blood Pressure [Left Brachial artery] Blood Pressure 114/84 H [Left Radial artery] Blood Pressure 197/69 H [Right Brachial artery] O2 Saturation 100 95 91 L 02/14/22 02/14/22 02/14/22 10:25 10:27 12:30 Temperature Heart Rate [ 53 L 55 L 82 Brachial] Respiratory Rate Blood Pressure 96/63 113/78 [Left Brachial artery] Blood Pressure [Left Radial artery] Blood Pressure 181/60 H [Right Brachial artery] O2 Saturation 02/14/22 02/14/22 14:40 14:42 Temperature 36.2 C L Heart Rate [ 54 L Brachial] Respiratory 20 Rate Blood Pressure [Left Brachial artery] Blood Pressure [Left Radial artery] Blood Pressure [Right Brachial artery] O2 Saturation 95 Oxygen O2 Source [Without Activity] Nasal cannula O2 Source [With Activity] Nasal cannula O2 Source Room air I&O (Last 24 Hrs): Intake and Output Totals x24h 02/12/22 02/13/22 02/14/22 23:59 23:59 23:59 Intake Total 50 1540 650 Output Total 1800 900 Balance 50 -260 -250 General: Alert, Oriented x3, Other (Cachectic, poor dentition) HEENT: Mucous membr. moist/pink Neck: Supple, No JVD Neuro: Alert, Non Focal (except both arms cannotberaised above level of shoulder s) Cardiovascular: Regular rate, No murmurs, Other (Bilateral mastectomy scars) Respiratory: Wheezes, Rales Abdomen: Soft Extremities: No edema, Other (Both upper arms have large, circumferentail acch ymoses) - Results Results: Laboratory Results WBC 6.5 x10^3/uL (4.8-10.8) 02/14/22 06:27 RBC 3.67 10^6/uL (4.20-5.40) L 02/14/22 06:27 Hgb 10.8 g/dL (12.0-16.0) L 02/14/22 06:27 Hct 32.3 % (37.0-47.0) L 02/14/22 06:27 MCV 88.0 fL (81.0-99.0) 02/14/22 06:27 MCH 29.4 pg (27.0-31.0) 02/14/22 06:27 MCHC 33.4 g/dL (32.0-36.0) 02/14/22 06:27 RDW 15.5 % (12.0-15.0) H 02/14/22 06:27 Plt Count 217 10^3/uL (130-450) 02/14/22 06:27 MPV 10.1 fL (7.9-10.8) 02/14/22 06:27 Neut # (Auto) 4.6 10^3/uL (1.5-6.6) 02/14/22 06:27 Lymph # (Auto) 1.0 10^3/uL (1.5-3.5) L 02/14/22 06:27 [place] # (Auto) 0.6 10^3/uL (0.0-1.0) 02/14/22 06:27 Eos # (Auto) 0.2 10^3/uL (0.0-0.7) 02/14/22 06:27 Baso # (Auto) 0.1 10^3/uL (0.0-0.1) 02/14/22 06:27 Absolute Nucleated RBC 0.00 x10^3/uL 02/14/22 06:27 Nucleated RBC % 0.0 /100WBC 02/14/22 06:27 Sodium 134 mmol/L (135-145) L 02/14/22 06:27 Potassium 3.4 mmol/L (3.5-5.0) L 02/14/22 06:27 Chloride 97 mmol/L (101-111) L 02/14/22 06:27 Carbon Dioxide 29 mmol/L (21-32) 02/14/22 06:27 Anion Gap 8.0 (6-13) 02/14/22 06:27 BUN 36 mg/dL (6-20) H 02/14/22 06:27 Creatinine 2.1 mg/dL (0.4-1.0) H 02/14/22 06:27 Estimated GFR (MDRD) 22 (>89) L 02/14/22 06:27 Glucose 94 mg/dL (70-100) 02/14/22 06:27 Calcium 8.6 mg/dL (8.5-10.3) 02/14/22 06:27 Magnesium 1.6 mg/dL (1.7-2.8) L 02/14/22 06:27 Total Bilirubin 0.8 mg/dL (0.2-1.0) 02/12/22 10:28 AST 20 IU/L (10-42) 02/12/22 10:28 ALT 19 IU/L (10-60) 02/12/22 10:28 Alkaline Phosphatase 96 IU/L (42-121) 02/12/22 10:28 Troponin I High Sens 83.4 ng/L (2.3-14.8) H* 02/13/22 05:51 B-Natriuretic Peptide 2983 pg/mL (5-100) H 02/14/22 06:27 Total Protein 6.5 g/dL (6.7-8.2) L 02/12/22 10:28 Albumin 3.2 g/dL (3.2-5.5) 02/12/22 10:28 Globulin 3.3 g/dL (2.1-4.2) 02/12/22 10:28 Albumin/Globulin Ratio 1.0 (1.0-2.2) 02/12/22 10:28 Lipase 31 U/L (22-51) 02/12/22 10:28 SARS-CoV-2 (PCR) NOT DETECTED 02/12/22 14:08 - Procedures Procedures: Procedures CATARAC PHACOEMULS/ASPIR (11/28/14) DRAINAGE OF LEFT PLEURAL CAVITY, PERCUTANEOUS APPROACH (11/05/20) INSERT LENS AT CATAR EXT (11/28/14)
--- NOTE | 2022-02-14 15:17 | XRAY Report ---
PROCEDURE: Shoulder 2 View BILAT INDICATIONS: Weakness of both arms suspect trauma TECHNIQUE: 2 views of each shoulder was obtained COMPARISON: None. FINDINGS: Bones: Superior subluxation of both humeral heads reflect a chronic retracted rotator cuff tear isn't . No evidence of fracture or dislocation. Surgical clips noted in the right axilla. Generalized osseo us decreased mineralization. Soft tissues: No suspicious soft tissue calcifications. IMPRESSION: 1. Superior subluxation of both humeral heads of consistent with chronic bilateral rotator cuff tears with retraction. 2. No evidence of fracture or acute dislocation. Reviewed by: Chun Macias MD on 02/14/2022 2:15 PM LUZ Approved by: Chun Macias MD on 02/14/2022 2:15 PM [id number] Station ID: [id number]
[2022-02-14] MEDS: ACETAMINOPHEN 325 MG TABLET PO PRN ×2 (15:58→21:28)
[2022-02-15 05:22] LABS: BASOPHILS # (AUTO) 0.1 10^3/uL (0.0-0.1); BASOPHILS % (AUTO) 0.7 %; EOSINOPHILS # (AUTO) 0.1 10^3/uL (0.0-0.7); EOSINOPHILS % (AUTO) 0.7 %; HCT - HEMATOCRIT 34.2 % (37.0-47.0); HGB - HEMOGLOBIN 11.2 g/dL (12.0-16.0); LYMPHOCYTES # (AUTO) 0.8 10^3/uL (1.5-3.5); LYMPHOCYTES % (AUTO) 10.8 %; MEAN CORPUSCULAR HEMOGLOBIN 28.7 pg (27.0-31.0); MEAN CORPUSCULAR HGB CONC 32.7 g/dL (32.0-36.0); MEAN CORPUSCULAR VOLUME 87.7 fL (81.0-99.0); MEAN PLATELET VOLUME 10.2 fL (7.9-10.8); MONOCYTES # (AUTO) 0.5 10^3/uL (0.0-1.0); MONOCYTES % (AUTO) 6.6 %; NEUTROPHILS # (AUTO) 5.8 10^3/uL (1.5-6.6); NEUTROPHILS % (AUTO) 80.9 %; PLT - PLATELET COUNT 214 10^3/uL (130-450); RED CELL DISTRIBUTION WIDTH 15.3 % (12.0-15.0); WHITE BLOOD COUNT 7.2 x10^3/uL (4.8-10.8)
[2022-02-15 05:30] LABS: CALCIUM 8.8 mg/dL (8.5-10.3); CREATININE 2.3 mg/dL (0.4-1.0); MAGNESIUM 1.8 mg/dL (1.7-2.8); POTASSIUM 3.8 mmol/L (3.5-5.0)
[2022-02-15] MEDS: MAGNESIUM OXIDE 400 MG TABLET PO SCH (08:48)
[2022-02-15] MEDS: FUROSEMIDE 40 MG TABLET PO SCH (08:48)
[2022-02-15] MEDS: ACETAMINOPHEN 325 MG TABLET PO PRN ×2 (08:48→17:29)
[2022-02-15] MEDS: POTASSIUM CHLORIDE 20 MEQ TABLET PO SCH (08:48)
[2022-02-15] MEDS: NICOTINE 14 MG PATCH TOP SCH (08:48)
[2022-02-15] MEDS: SODIUM CHLORIDE FLUSH 0.9% 10 ML SYRINGE IVP SCH ×2 (08:50→20:13)
[2022-02-15] MEDS: METOPROLOL SUCCINATE 25 MG TABLET PO SCH (09:04)
[2022-02-15] MEDS: LOSARTAN 50 MG TABLET PO SCH (12:58)
[2022-02-15] MEDS: IBUPROFEN 400 MG TABLET PO PRN (12:58)
[2022-02-15] MEDS: SPIRONOLACTONE 25 MG TABLET PO SCH (12:58)
--- NOTE | 2022-02-15 15:18 | PROVIDER PROGRESS NOTE ---
Assessment/Plan - Problem List (1) Acute on chronic systolic heart failure Assessment/Plan: Patient's BNP was 5300. Her presentation with mild leg edema, orthopnea and BURGOS were consistent with CHF exacerbation. Her last echo here was in 2020 and at [facility] in June 2021, and they showed LVEF of 40 to 45%. I performed an Echo on this patient myself, and she has a dilated LV, LVH, severe global hypokinesis with EF 20%. Etiology may be hypertensive heart disease versus valvular heart disease since she has severe mitral regurgitation and aortic regurgitation. She did not remember if she is followed by Staining Machine Operator. Continue Lasix Low-sodium diet Patient on metoprolol succinate Will added ANDREW, spironolactone. We have no Entresto on formulary here. (2) Lice Conclusion/Plan: Patient has been itching on her body and head. The RN found large lice. Will order the shampoo and body treatment. I have called and left voicemail message, asking for input from Melanie Corona, Infection jigmaker. (3) Acute respiratory failure with hypoxia Conclusion/Plan: Likely secondary to CHF exacerbation. She also has COPD by clinical evaluation and may have a mild COPD exacerbation as well On room air patient's oxygen saturation droped to 84 to 88%. She is currently on 2 L of oxygen with oxygen saturation between 93 and 100%. Anticipating further improvement in oxygenation with diuresis. management for her underlying COPD with duo nebs, Pulmicort nebs, and Singulair at at bedtime (4) COPD with exacerbation Conclusion/Plan: She was a lifelong smoker who quit 2-3 weeks ago, by her report. A Nicotine patch was still required. We also added management for her underlying COPD with duo nebs, Pulmicort nebs, Singulair at at bedtime (5)PVD Conclusion/Plan: Upon presentation, her VS were noted to have unequal BPs in both arms: L 150 syst, R 90 syst. She underwent bilateral arterial Doppler and this showed normal flow in the left arm and blunted flow in the right arm. The radiologist recommended CTA to tayler roberts for right subclavian artery occl. Her creatinine was greater than 2.0, thus a contrast load is currently contraindicated. I will discuss with our radiologist regarding use of half dose contrast and order a CTA when it is safe to do so. (6) Rotator cuff tear arthropathy of both shoulders (M75.101) She presented complaining of bilateral arm weakness and we found her to have bilateral, circumferential upper arm ecchymoses. The patient cannot remember how long she had arm weakness and has "no idea" how she got these large, circumferential nearly symmetrical ecchymoses in the upper arms bilaterally. She says she "woke up one day with that". She denies having any trauma, does not think that the grandchildren who live with her might have done this. She denies any trauma like falling on both sides or on her neck. She describes B arm weakness and cannot lift her arms above her shoulders but does not say that the shoulders or upper arms are painful. We ordered B shoulder XRays and this showed (old) bilateral rotator cuff tears PT and OT evaluation were ordered (7) Acute kidney injury superimposed on CKD Conclusion/Plan: Likely related to CHF exacerbation (cardio-renal syndrome), since creat is improving, however BUN/creat ratio is increasing. Avoid nephrotoxins We will continue to monitor renal function with BMP done daily (8) Hypertension Conclusion/Plan: She was kept on her metoprolol succinate 50 mg p.o. daily. This dose needed to be decreased due to extreme bradycardia to HR 26 when she was asleep. Currently on Lasix 40 as well and we have started spironolactone and ANDREW which will also help with blood pressure control (9) Bradycardia Conclusion/Plan: She had a heart rate of 26 and sinus rhythm overnight when asleep, was asymptomatic. We will decrease her beta-joanna dose by half Continue monitoring on telemetry (10) Hypokalemia Conclusion/Plan: Caused by iv diuresis Will replace. Follow BMP daily. (11) Hypomagnesemia Conclusion/Plan: Caused by iv diuresis Will replace. Follow BMP daily. (12) Elevated troponin Conclusion/Plan: Troponins were 41.2>> 75>> 80. Likely due to CHF exacerbation and not in a pattern of ACS. Patient denied having chest pain. Unknown if she has had CAD eval. Will consider ordering 1 baby ASA daily, except that her extensive, bilateral, circumferential arm bruises have unknown etiology (13) Tobacco abuse Conclusion/Plan: She said she stopped smoking 2-3 weeks ago, but gets urges to smoke. Nicotine patch was ordered. (14) Hyperlipidemia Conclusion/Plan: We will hold patient's atorvastatin for now. Patient is complaining of upper extremity weakness which could be worsened by atorvastatin. - Current Meds Current Meds: Current Medications Generic Name Dose Route Start Last Admin Trade Name Freq PRN Reason Stop Dose Admin Acetaminophen 650 mg 02/12/22 21:10 02/15/22 08:48 Acetaminophen 325 Mg Tablet PO 650 mg Q4HR PRN Administration Pain 1 to 4, or Fever Furosemide 40 mg 02/15/22 09:00 02/15/22 08:48 Furosemide 40 Mg Tablet PO 40 mg DAILY KEESHA Administration Ibuprofen 400 mg 02/15/22 11:58 02/15/22 12:58 Ibuprofen 400 Mg Tablet PO 400 mg Q6HR PRN Administration PAIN Losartan Potassium 25 mg 02/14/22 12:00 02/15/22 12:58 Losartan 50 Mg Tablet PO 25 mg 1200 KEESHA Administration Magnesium Oxide 400 mg 02/14/22 11:00 02/15/22 08:48 Magnesium Oxide 400 Mg Tablet PO 400 mg DAILYWM KEESHA Administration Metoprolol Succinate 25 mg 02/14/22 10:00 02/15/22 09:04 Metoprolol Succinate 25 Mg Tablet PO 25 mg DAILY KEESHA Administration Nicotine 1 patch 02/13/22 09:00 02/15/22 08:48 Nicotine 14 Mg Patch TOP 1 patch DAILY KEESHA Administration Ondansetron HCl 4 mg 02/12/22 21:10 02/15/22 00:37 Ondansetron 4 Mg/2 Ml Vial IVP 4 mg Q6HR PRN Administration Nausea / Vomiting Potassium Chloride 20 meq 02/15/22 08:00 02/15/22 08:48 Potassium Chloride 20 Meq Tablet PO 20 meq DAILYWM KEESHA Administration Sodium Chloride 10 ml 02/12/22 21:10 02/14/22 14:16 Sodium Chloride Flush 0.9% 10 Ml Syringe IVP 10 ml PRN PRN Administration NEEDED PER PROVIDER ORDERS Sodium Chloride 10 ml 02/13/22 01:00 02/15/22 08:50 Sodium Chloride Flush 0.9% 10 Ml Syringe IVP 10 ml 0100,0900,1700 KEESHA Administration Spironolactone 25 mg 02/14/22 12:00 02/15/22 12:58 Spironolactone 25 Mg Tablet PO 25 mg 1200 KEESHA Administration Throat Lozenges 1 lozenge 02/13/22 10:53 02/14/22 21:40 Benzocaine/Menthol Lozenge MM 1 lozenge Q2HR PRN Administration Cough Trazodone HCl 50 mg 02/14/22 00:15 02/14/22 21:28 Trazodone 50 Mg Tablet PO 50 mg QPM KEESHA Administration - Lab Result Fish Bone Diagrams: 02/16/22 05:35 02/16/22 05:35 - Additional Planning My Orders: My Active Orders 02/15/22 Evaluate and Treat OT [OT] Routine 02/15/22 08:00 Potassium Chloride [K-Dur] 20 meq PO DAILYWM 02/15/22 09:00 Furosemide [Lasix] 40 mg PO DAILY 02/15/22 11:58 Ibuprofen [Motrin] 400 mg PO Q6HR PRN 02/16/22 05:00 MAGNESIUM [CHEM] DAILYLAB Subjective - Subjective Patient Reports: Other (Itching) Objective Vital Signs: Vital Signs - 24 hr 02/14/22 02/14/22 02/14/22 15:54 21:00 23:53 Temperature 36.6 C 36.5 C 36.3 C L Heart Rate [ 56 L 69 68 Brachial] Respiratory 21 16 16 Rate Blood Pressure [Left Brachial artery] Blood Pressure 118/78 114/72 114/91 H [Left Radial artery] Blood Pressure [Right Radial artery] O2 Saturation 91 L 94 86 L 02/14/22 02/15/22 02/15/22 23:54 04:46 07:57 Temperature 36.3 C L 35.9 C L Heart Rate [ 58 L 55 L Brachial] Respiratory 18 20 Rate Blood Pressure [Left Brachial artery] Blood Pressure 113/61 120/86 H [Left Radial artery] Blood Pressure 163/86 H [Right Radial artery] O2 Saturation 96 96 96 02/15/22 02/15/22 02/15/22 09:01 13:01 14:33 Temperature 36.4 C L 36.4 C L Heart Rate [ 65 51 L Brachial] Respiratory 20 Rate Blood Pressure 106/58 L 112/74 [Left Brachial artery] Blood Pressure [Left Radial artery] Blood Pressure [Right Radial artery] O2 Saturation 94 98 Oxygen O2 Source [Without Activity] Nasal cannula O2 Source [With Activity] Nasal cannula O2 Source Nasal cannula I&O (Last 24 Hrs): Intake and Output Totals x24h 07/16/22 07/17/22 07/18/22 23:59 23:59 23:59 Intake Total 1540 1180 810 Output Total 1800 1350 1000 Balance -260 -170 -190 General: Alert, Other ((exam done remotely)) HEENT: Mucous membr. moist/pink Neck: Supple Neuro: Alert, Non Focal Cardiovascular: Regular rate Respiratory: No respiratory distress (wearing O2 per n.c. and able to lie flat) Abdomen: Soft Extremities: No edema - Results Results: Laboratory Results WBC 7.2 x10^3/uL (4.8-10.8) 02/15/22 04:46 RBC 3.90 10^6/uL (4.20-5.40) L 02/15/22 04:46 Hgb 11.2 g/dL (12.0-16.0) L 02/15/22 04:46 Hct 34.2 % (37.0-47.0) L 02/15/22 04:46 MCV 87.7 fL (81.0-99.0) 02/15/22 04:46 MCH 28.7 pg (27.0-31.0) 02/15/22 04:46 MCHC 32.7 g/dL (32.0-36.0) 02/15/22 04:46 RDW 15.3 % (12.0-15.0) H 02/15/22 04:46 Plt Count 214 10^3/uL (130-450) 02/15/22 04:46 MPV 10.2 fL (7.9-10.8) 02/15/22 04:46 Neut # (Auto) 5.8 10^3/uL (1.5-6.6) 02/15/22 04:46 Lymph # (Auto) 0.8 10^3/uL (1.5-3.5) L 02/15/22 04:46 [place] # (Auto) 0.5 10^3/uL (0.0-1.0) 02/15/22 04:46 Eos # (Auto) 0.1 10^3/uL (0.0-0.7) 02/15/22 04:46 Baso # (Auto) 0.1 10^3/uL (0.0-0.1) 02/15/22 04:46 Absolute Nucleated RBC 0.00 x10^3/uL 02/15/22 04:46 Nucleated RBC % 0.0 /100WBC 02/15/22 04:46 Sodium 136 mmol/L (135-145) 02/15/22 04:46 Potassium 3.8 mmol/L (3.5-5.0) 02/15/22 04:46 Chloride 97 mmol/L (101-111) L 02/15/22 04:46 Carbon Dioxide 29 mmol/L (21-32) 02/15/22 04:46 Anion Gap 10.0 (6-13) 02/15/22 04:46 BUN 40 mg/dL (6-20) H 02/15/22 04:46 Creatinine 2.3 mg/dL (0.4-1.0) H 02/15/22 04:46 Estimated GFR (MDRD) 20 (>89) L 02/15/22 04:46 Glucose 111 mg/dL (70-100) H 02/15/22 04:46 Calcium 8.8 mg/dL (8.5-10.3) 02/15/22 04:46 Magnesium 1.8 mg/dL (1.7-2.8) 02/15/22 04:46 Total Bilirubin 0.8 mg/dL (0.2-1.0) 02/12/22 10:28 AST 20 IU/L (10-42) 02/12/22 10:28 ALT 19 IU/L (10-60) 02/12/22 10:28 Alkaline Phosphatase 96 IU/L (42-121) 02/12/22 10:28 Troponin I High Sens 83.4 ng/L (2.3-14.8) H* 02/13/22 05:51 B-Natriuretic Peptide 2871 pg/mL (5-100) H 02/15/22 04:46 Total Protein 6.5 g/dL (6.7-8.2) L 02/12/22 10:28 Albumin 3.2 g/dL (3.2-5.5) 02/12/22 10:28 Globulin 3.3 g/dL (2.1-4.2) 02/12/22 10:28 Albumin/Globulin Ratio 1.0 (1.0-2.2) 02/12/22 10:28 Lipase 31 U/L (22-51) 02/12/22 10:28 SARS-CoV-2 (PCR) NOT DETECTED 02/12/22 14:08 - Procedures Procedures: Procedures CATARAC PHACOEMULS/ASPIR (11/28/14) DRAINAGE OF LEFT PLEURAL CAVITY, PERCUTANEOUS APPROACH (11/05/20) INSERT LENS AT CATAR EXT (11/28/14)
[2022-02-15] MEDS ORDERED: PIPERONYL BUTOXIDE TOP ONE (16:00)
[2022-02-15] MEDS ORDERED: PYRETHRINS TOP ONE (16:00)
[2022-02-15] MEDS: traZODone 50 MG TABLET PO SCH (21:47)
[2022-02-16] MEDS: SODIUM CHLORIDE FLUSH 0.9% 10 ML SYRINGE IVP SCH ×4 (02:53→23:28)
[2022-02-16 05:58] LABS: BASOPHILS # (AUTO) 0.1 10^3/uL (0.0-0.1); BASOPHILS % (AUTO) 0.9 %; EOSINOPHILS # (AUTO) 0.2 10^3/uL (0.0-0.7); EOSINOPHILS % (AUTO) 2.2 %; HCT - HEMATOCRIT 33.6 % (37.0-47.0); LYMPHOCYTES # (AUTO) 0.8 10^3/uL (1.5-3.5); LYMPHOCYTES % (AUTO) 10.8 %; MEAN CORPUSCULAR HEMOGLOBIN 29.2 pg (27.0-31.0); MEAN CORPUSCULAR HGB CONC 32.7 g/dL (32.0-36.0); MEAN CORPUSCULAR VOLUME 89.1 fL (81.0-99.0); MEAN PLATELET VOLUME 9.5 fL (7.9-10.8); MONOCYTES # (AUTO) 0.5 10^3/uL (0.0-1.0); NEUTROPHILS % (AUTO) 78.8 %; PLT - PLATELET COUNT 209 10^3/uL (130-450); RED BLOOD COUNT 3.77 10^6/uL (4.20-5.40); RED CELL DISTRIBUTION WIDTH 15.4 % (12.0-15.0); WHITE BLOOD COUNT 7.6 x10^3/uL (4.8-10.8)
[2022-02-16 06:06] LABS: CALCIUM 8.9 mg/dL (8.5-10.3); CREATININE 2.1 mg/dL (0.4-1.0); MAGNESIUM 1.9 mg/dL (1.7-2.8); POTASSIUM 4.1 mmol/L (3.5-5.0)
[2022-02-16] MEDS: NICOTINE 14 MG PATCH TOP SCH (08:36)
[2022-02-16] MEDS: MAGNESIUM OXIDE 400 MG TABLET PO SCH (08:36)
[2022-02-16] MEDS: POTASSIUM CHLORIDE 20 MEQ TABLET PO SCH (08:36)
[2022-02-16] MEDS: FUROSEMIDE 40 MG TABLET PO SCH (08:36)
[2022-02-16] MEDS: METOPROLOL SUCCINATE 25 MG TABLET PO SCH (10:30)
--- NOTE | 2022-02-16 11:23 | Discharge Plan ---
Discharge Plan Problem Reviewed?: Yes Disposition: 06 Home Health Service Condition: Fair Prescriptions: Spironolactone [Aldactone] 25 mg PO 1200 #30 tablet Losartan [Cozaar] 25 mg PO 1200 #30 tablet traZODone [Desyrel] 50 mg PO QPM #30 tablet Potassium Chloride [K-Dur] 20 meq PO DAILYWM #30 tablet Metoprolol Succinate [Toprol Xl] 25 mg PO DAILY #30 tablet Diet: Low Sodium Activity Restrictions: Activity as Tolerated Shower Restrictions: No Driving Restrictions: Yes (no driving) Instruction Topics: Permethrin lotion, Heart Failure Meds Control, Heart Failure, Heart Failure Tracking Weight, Head Lice Health Concerns: you came to our emergency room because your arms were weak. We think you have chronic rotator cuff disease in your shoulders to cause the pain in weakness and will need to see an record retrieval specialist for that. We found you to have acute worsening of your chornic congestive heart failure. We have documented that the pump muscle function of your heart (normal is 65%) is usually 40% for you and has worsened to 20%. To treat this we gave you more pills to diurese you and to control your blood pressure. You are now ready to go home. The only issue you still need to be treated for is lice. You have already received one treatment here. Plan of Treatment: 1. See your primary care provider, Jaimie Johnson, in the next week to get blood work done and your legs/lungs examined. 2. She will need to check a BMP and BNP for blood work to make sure your medicines are working and that your kidneys and potassium are ok. 3. You are weak enough to need physical therapy so I have ordered Home Health physical therapy, a bath aide, and a nurse to check on you. 4. your oxygen level is low from your heart failure and you will need oxygen at home. 5. In one week you need to have a repeat lice treatment with shampoo and body lotion. Please make sure you get a prescription for your provider. you also need all your clothes in your closet, all your bed linens, and your furniture to be cleaned. 6. Your daughter and [id number] are thinking about how poorly you are doing because of your heart failure. There thinking about care for you down the road. Right now you already have your granddaughter living with you, but they may start rotating through your house so that you have 24/7 care. They are also thinking about doing hospice care. When you and your family are ready to transition to hospice (and I did explain to your daughter what that was) she should be able to call their number and call them directly to have them come to the house. They will notify your primary care provider. Care Goals: Hopefully you will regain some strength to be independent for bathing, eating, cooking and cleaning. We also hope that as you medicines help your heart, that you will not need oxygen down the road. Assessment: patient has cognitive deficits and cannot always follow conversation. Social work has discussed with family. Follow-Up Care: Home Health - RN, Home Health - PT, Home Health - OT No Smoking: If you smoke, Please STOP! Call for help. Follow-up with: JAIMIE JOHNSON ARNP [Primary Care Provider] -
--- NOTE | 2022-02-16 11:57 | DISCHARGE SUMMARY ---
"Discharge Summary Admit Date: 02/12/22 Discharge Date: 02/18/22 Discharging Provider: Tiffany Lovelace MD Primary Care Provider: RACHANA Brantley Code Status: Attempt Resuscitation Condition at Discharge: Fair Discharge Disposition: 06 [facility] - DIAGNOSES Discharge Diagnoses with Status of Each Condition: 1. Acute on chronic systolic heart failure 2. Acute respiratory failure with hypoxia 3. COPD with exacerbation 4. Peripheral vascular disease 5. Rotator cuff tear arthropathy of both shoulders 6. Upper extremity weakness due to #5 7. Lice 8. Acute kidney injury superimposed on chronic kidney disease, resolved 9. Hypertension 10. Bradycardia 11. Hypokalemia 12. Hypomagnesemia 13. Elevated troponin 14. Tobacco abuse 15. Hyperlipidemia - HPI History of Present Illness: Patient is an 82-year-old female who presented to the ED with initial complaint of weakness and bruises on both upper arms from the mid biceps to the elbow. She denied being aware of any injury. However while in the ED she was noted to be hypoxic with oxygen saturation dropping to 84% on room air. Work-up included a BNP which was elevated at 5300. She also has +1 lower extremity edema and her left lower extremity and trace in the right. As a result of the above she was presented for admission for further treatment. At bedside she is resting comfortably however she reports mild dyspnea. She denies chest pain, abdominal pain, nausea, vomiting, fever or chills. 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 Chest x-ray with cardiomegaly and increased vascularity with left pleural effusion suggesting edema 2. Humerus x-ray bilaterally showing diffuse osteopenia. No acute fracture or suspicious abnormality of bilateral humeri. Degenerative changes of the shoulder and elbow bilaterally. High riding bilateral humeral head with narrowing of the subacromial space suggestive of sequela of chronic rotator cuff disease. 3. Duplex scan upper extremity artery with diminished systolic velocity and blunted monophasic waveform throughout the left upper extremity suggesting proximal subclavian stenosis. 4. Shoulder x-ray with superior subluxation of both humeral heads consistent with chronic bilateral rotator cuff tears and retraction. No acute fracture or dislocation. - HOSPITAL COURSE Hospital Course: What she presented for which was bilateral arm weakness and what we admitted her for were 2 different things. In her evaluation we found her bilateral arm we akness to be due to probable bilateral rotator cuff disease. We curbside orthopedics and orthopedics felt there is nothing much more to do for this. But in her evaluation we found her to have hypoxia. BNP was 5300. Chest x-ray showed signs of congestive heart failure. As such she was admitted for acute on chronic systolic heart failure that was inducing acute respiratory failure with hypoxia. She was diuresed. Bedside echocardiogram showed her to have a dilated LV with LVH. Severe global hypokinesis with an ejection fraction of 20%. A previous ejection fraction last year with her exhibit carpenter and Lucio Paris had an ejection fraction of 40 to 45%. In spite of diuresis, adding spironolactone, adding losartan, and adjusting her metoprolol, she continued to be hypoxic. She did well with diuresis but needed oxygen.We did attempt to discharge her on February 16. In the morning she seemed well and did not have any oxygen requirements. But when retested by physical therapy in the afternoon she desaturates significantly when she walks more than 20 to 25 feet. He is basically sedentary lady and does not need oxygen at room air. However with any walking greater than 20 feet she desaturates to the mid 70s on room air. The day before discharge, oxygen desat test: 96% saturation with a pulse of 60 on room air at rest 88% saturation with pulse 100 with room air with ambulation/marching in place 78% saturation with pulse 110 with walking 25 feet and tachypnea on room air 96% on 1 L with a heart rate of 80 at rest 90% with 1 L with ambulation of marching in place, heart rate 100 92% with 2 L with marching in place ambulation and walking 20 feet as such she will need 2 L with exertion. She does not need oxygen at rest Other problems found during her stay included active lice infestation. Apparently lice is a chronic problem within her small house. Instructions were given to the family how to get rid of some of them in the house. This included washing laundry, sheets, removing mattresses and treating them. She was treated with lotion and shampoo here. She will need another treatment in a week. Daughter is very concerned about having to take care of mom down the road. They anticipate further deterioration of her overall status especially with an ejecti on fraction of 20%. Advance care planning conversation had under separate note. Right now they are not ready to transfer her to hospice. They are going to see how she does when she gets home. But if she continues to deteriorate slowly if she does they are interested in calling hospice. COPD exacerbation was treated with steroids and nebs. Tobacco withdrawal was treated with nicotine patch. She was identified as having subclavian stenosis on ultrasound. The dye load will be quite heavily do an angiogram and as such that was not done during the stay. Creatinine is probably high. She was felt to have acute on chronic kidney injury. Creatinine is up to 2.4 at discharge. With family wanting to focus on comfort measures, a POLST form was filled out. Other than watching fluid intake and avoiding nephrotoxins I do not know much more that can be offered for her creatinine. They are not interested in nephrology referral. Low potassium, low magnesium was treated with supplementation. She had elevated troponins that were flat and most likely due to CHF exacerbation and not true NSTEMI. Because of her upper extremity weakness, atorvastatin was initially held for her hyperlipidemia. With focus on comfort, it was not resumed at discharge. She was discharged in stable condition with a poor prognosis. Temperature is 36.4. Heart rate is 59. Blood pressure 156/61. Respirations 18. 98% saturated and requiring 2 L when she ambulates. She is 5 foot 4 inches tall and weighs 59 kg. She is a gaunt appearing elderly female who looks older than stated age. Poor skin turgor, sallow appearance. She looks exhausted. Neck does not have JVD when she is sitting at 45 degrees. Lungs have diminished breath sounds at the bases no crackles. With increased activity she does get quite tachypneic and really is reluctant to get up and walk. She has a regular rate and rhythm and a systolic ejection murmur. And abdomen that is soft, hypoactive bowel sounds. Bilateral mild pitting edema is present. She has generalized weakness. Very forgetful. But oriented to person place and time. Physical therapy evaluated her and feels that she is a candidate for home health PT OT. I am also requesting social work to help him transition down the road if they want hospice. And nurse to do weight checks, lung exams and to monitor her congestive heart failure. Greater than 30 minutes was spent coordinating discharge - ALLERGIES Allergies/Adverse Reactions: Allergies Allergy/AdvReac Type Severity Reaction Status Date / Time lisinopril AdvReac Respiratory Verified 11/05/20 09:47 - MEDICATIONS Home Medications: Ambulatory Orders Medication Instructions Recorded Confirmed Cholecalciferol [Vitamin D3] 5,000 unit PO DAILY 11/05/20 02/14/22 Vit A/Vit C/Vit E/Zinc/Copper 1 each PO DAILY 11/05/20 02/13/22 [Preservision Areds Softgel] Furosemide [Lasix] 40 mg PO DAILY 30 Days #30 tablet 11/15/20 02/13/22 Ciclesonide [Alvesco] 1 puffs INH BID 02/13/22 02/13/22 Losartan [Cozaar] 25 mg PO 1200 #30 tablet 02/16/22 Magnesium Oxide [Mag Ox] 400 mg PO DAILYWM tablet 02/16/22 Metoprolol Succinate [Toprol Xl] 25 mg PO DAILY #30 tablet 02/16/22 Potassium Chloride [K-Dur] 20 meq PO DAILYWM #30 tablet 02/16/22 Spironolactone [Aldactone] 25 mg PO 1200 #30 tablet 02/16/22 traZODone [Desyrel] 50 mg PO QPM #30 tablet 02/16/22 - LABS Result Diagrams: 02/17/22 05:05 02/17/22 05:05"
[2022-02-16] MEDS: LOSARTAN 50 MG TABLET PO SCH (12:47)
[2022-02-16] MEDS: SPIRONOLACTONE 25 MG TABLET PO SCH (12:48)
--- NOTE | 2022-02-16 16:13 | PROVIDER PROGRESS NOTE ---
Subjective - Prog Note Date Prog Note Date: 02/16/22 Prog Note Time: 16:13 - Subjective Subjective: She is mildly confused. 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 Daughter and [id number] are in the room and we have an extensive conversation about her ejection fraction, overall prognosis, and current management issues of her lice, congestive heart failure. She says that she still feels a little weak. She is not happy that there are "bugs in my hair". And her legs still have a little bit of edema that she would like to have resolved. But she denies chest pain, palpitations, and no new shortness of breath. She continues to have moderate dyspnea on exertion with simple getting up and walking to the bathroom. Current Medications - Current Medications Current Medications: Active Medications Acetaminophen (Acetaminophen 325 Mg Tablet) 650 mg PO Q4HR PRN PRN Reason: Pain 1 to 4, or Fever Last Admin: 02/15/22 17:29 Dose: 650 mg Furosemide (Furosemide 40 Mg Tablet) 40 mg PO DAILY REPLACED BY [facility] Last Admin: 02/16/22 08:36 Dose: 40 mg Ibuprofen (Ibuprofen 400 Mg Tablet) 400 mg PO Q6HR PRN PRN Reason: PAIN Last Admin: 02/15/22 12:58 Dose: 400 mg Losartan Potassium (Losartan 50 Mg Tablet) 25 mg PO 1200 REPLACED BY [facility] Last Admin: 02/16/22 12:47 Dose: 25 mg Magnesium Oxide (Magnesium Oxide 400 Mg Tablet) 400 mg PO DAILYWM REPLACED BY [facility] Last Admin: 02/16/22 08:36 Dose: 400 mg Metoprolol Succinate (Metoprolol Succinate 25 Mg Tablet) 25 mg PO DAILY REPLACED BY [facility] Last Admin: 02/16/22 10:30 Dose: Not Given Nicotine (Nicotine 14 Mg Patch) 1 patch TOP DAILY REPLACED BY [facility] Last Admin: 02/16/22 08:36 Dose: 1 patch Ondansetron HCl (Ondansetron 4 Mg/2 Ml Vial) 4 mg IVP Q6HR PRN PRN Reason: Nausea / Vomiting Last Admin: 02/15/22 00:37 Dose: 4 mg Potassium Chloride (Potassium Chloride 20 Meq Tablet) 20 meq PO DAILYWM REPLACED BY [facility] Last Admin: 02/16/22 08:36 Dose: 20 meq Sodium Chloride (Sodium Chloride Flush 0.9% 10 Ml Syringe) 10 ml IVP PRN PRN PRN Reason: NEEDED PER PROVIDER ORDERS Last Admin: 02/14/22 14:16 Dose: 10 ml Sodium Chloride (Sodium Chloride Flush 0.9% 10 Ml Syringe) 10 ml IVP 0100,0900,1700 REPLACED BY [facility] Last Admin: 02/16/22 08:36 Dose: 10 ml Spironolactone (Spironolactone 25 Mg Tablet) 25 mg PO 1200 REPLACED BY [facility] Last Admin: 02/16/22 12:48 Dose: 25 mg Throat Lozenges (Benzocaine/Menthol Lozenge) 1 lozenge MM Q2HR PRN PRN Reason: Cough Last Admin: 02/14/22 21:40 Dose: 1 lozenge Trazodone HCl (Trazodone 50 Mg Tablet) 50 mg PO QPM REPLACED BY [facility] Last Admin: 02/15/22 21:47 Dose: 50 mg Cholecalciferol [Vitamin D3] 5,000 unit PO DAILY 11/05/20 Vit A/Vit C/Vit E/Zinc/Copper [Preservision Areds Softgel] 1 each PO DAILY 11/05/20 Ciclesonide [Alvesco] 1 puffs INH BID 02/13/22 Objective - Vital Signs/Intake & Output Reviewed Vital Signs: Yes Vital Signs: Vital Signs x48h Temp Pulse Pulse Pulse Resp BP BP 02/16/22 12:42 36.3 C L 53 L 20 115/68 02/16/22 10:27 56 L 68 89/60 L 02/16/22 10:26 36.3 C L 52 L 20 97/60 02/16/22 08:34 02/16/22 08:33 49 L 93/49 L BP Pulse Ox 02/16/22 12:42 93 02/16/22 10:27 97/60 02/16/22 10:26 93 02/16/22 08:34 95 02/16/22 08:33 98 Intake & Output: Intake & Output 02/13/22 02/14/22 02/15/22 02/16/22 23:59 23:59 23:59 23:59 Intake Total 1540 1180 1050 490 Output Total 1800 1350 1000 1650 Balance -260 170 50 -1160 - Objective General Appearance: positive: No acute distress, Alert, Other (Very frail appearing elderly female, sitting upright in a chair, speaking to daughter and mqgiqquu-zp-mmh comfortably but sometimes missing conversation because of deafness or cognition) Eyes Bilateral: positive: PERRL ENT: positive: No signs of dehydration Neck: positive: No JVD. negative: Stiff neck Respiratory: positive: No respiratory distress, Other (No rales but she does have diminished breath sounds at the bases). negative: Wheezes, Rhonchi Cardiovascular: positive: Regular rate & rhythm, Systolic murmur. negative: G allop/S4, Friction rub - Lab Results Fish Bones: 02/16/22 05:35 02/16/22 05:35 Other Labs: Lab Results x24hrs 02/16/22 02/16/22 02/16/22 Range/Units 05:35 05:35 05:35 WBC 7.6 (4.8-10.8) x10^3/uL RBC 3.77 L (4.20-5.40) 10^6/uL Hgb 11.0 L (12.0-16.0) g/dL Hct 33.6 L (37.0-47.0) % MCV 89.1 (81.0-99.0) fL MCH 29.2 (27.0-31.0) pg MCHC 32.7 (32.0-36.0) g/dL RDW 15.4 H (12.0-15.0) % Plt Count 209 (130-450) 10^3/uL MPV 9.5 (7.9-10.8) fL Neut # (Auto) 6.0 (1.5-6.6) 10^3/uL Lymph # (Auto) 0.8 L (1.5-3.5) 10^3/uL [place] # (Auto) 0.5 (0.0-1.0) 10^3/uL Eos # (Auto) 0.2 (0.0-0.7) 10^3/uL Baso # (Auto) 0.1 (0.0-0.1) 10^3/uL Absolute Nucleated RBC 0.00 x10^3/uL Nucleated RBC % 0.0 /100WBC Sodium 134 L (135-145) mmol/L Potassium 4.1 (3.5-5.0) mmol/L Chloride 98 L (101-111) mmol/L Carbon Dioxide 27 (21-32) mmol/L Anion Gap 9.0 (6-13) BUN 42 H (6-20) mg/dL Creatinine 2.1 H (0.4-1.0) mg/dL Estimated GFR (MDRD) 22 L (>89) Glucose 87 (70-100) mg/dL Calcium 8.9 (8.5-10.3) mg/dL Magnesium 1.9 (1.7-2.8) mg/dL B-Natriuretic Peptide 1352 H (5-100) pg/mL ABX Reporting Has patient been on IV antibiotics over the past 48 hours?: No Assessment/Plan - Problem List (1) Acute on chronic systolic heart failure Impression: Patient's BNP was 5300. Her presentation with mild leg edema, orthopnea and BURGOS were consistent with CHF exacerbation. Her last echo here was in 2020 and at [facility] in June 2021, and they showed LVEF of 40 to 45%. On admission her BNP was 5300. Now is 1300. Weight is not being done daily. The daytime hospitalist, who is a log driver, performed an echocardiogram February 15. She has a dilated LV, LVH, severe global hypokinesis with EF 20%. Etiology may be hypertensive heart disease versus valvular heart disease since she has severe mitral regurgitation and aortic regurgitation. She did not remember if she is followed by Cardiology Coordinator. She is on Lasix 40 mg p.o. daily after being on IV diuresis. Spironolactone was added daily. Losartan was added. And her metoprolol XL was 50 mg a day and cut back to 25 mg a day to avoid hypotension. She has done well with that and we thought that we would be discharging her today. However, late afternoon hypoxia was identified as much worse than we thought. And we are having to order home oxygen. As such I will resend her discharge and keep her 1 more night until we can make sure that she can safely be discharged with home oxygen. Low-sodium diet continued.. Daughter Angela and patient's [id number] are here at the bedside. We discussed the ejection fraction of 20%. They are overall looking down the road to a further deterioration in this patient's physical status. They are asking what their options are and when I mentioned hospice they are relieved to see that that is a possibility for them. But they have not discussed this as a family. Please see separate advance care planning note conversation. (2) Lice Conclusion/Plan: Patient has been itching on her body and head. The RN found large lice. She has had the shampoo and body treatment I have asked for input from Melanie Corona, Infection block placer. So far no notes yets. I have explained to the family that the patient's linen and clothes only to be washed in hot water. Bedding such as mattress needs to be taken out and reviewed for possible retained lice. Furniture carpet etc. May need treatment. They mentioned that lice has been a chronic problem within the household for quite some time now. I recommend that she get another treatment in a week. She should follow-up with her primary care provider to get the prescription. (2) Acute respiratory failure with hypoxia Conclusion/Plan: Likely secondary to CHF exacerbation. She also has COPD by clinical evaluation and may have a mild COPD exacerbation as well This morning she was 90% on room air and was marching in place for 7 minutes. We thought that she could go home without oxygen. This afternoon physical therapy did 1 more evaluation before sending her home and her O2 sats dropped into the 70s on room air. As such we are going to have to redo her desat test, and delay her discharge till tomorrow. She continues to have DuoNebs, Pulmicort and Singulair as well to treat hypoxia that is from both congestive heart failure and COPD (3) COPD with exacerbation Conclusion/Plan: She was a lifelong smoker who quit 2-3 weeks ago. A Nicotine patch was still required. Will also increase management for her underlying COPD with duo nebs, Pulmicort nebs, Singulair at at bedtime (4)PVD Conclusion/Plan: Upon presentation, her VS were noted to have unequal BPs in both arms: L 150 syst, R 90 syst. She underwent bilateral arterial Doppler and this showed normal flow in the left arm and blunted flow in the right arm. The radiologist recommended CTA to evaluate for right subclavian artery occl. Her creatinine is still greater than 2.0, contrast load is currently contraindicated. This will be addressed in the outpatient setting. (5) Rotator cuff tear arthropathy of both shoulders (M75.101) She presented complaining of bilateral arm weakness and we found her to have bilateral, circumferential upper arm ecchymoses. The patient cannot remember how long she had arm weakness and has no idea how she got these large, circumferential nearly symmetrical ecchymoses in the upper arms bilaterally. She says she "woke up 1 day with that". She denies having any trauma, does not think that the grandchildren who live with her might have done this. She denies any trauma like falling on both sides or on her neck. She describes weakness and cannot lift her arms but does not say that the shoulders or upper arms are painful. We ordered B shoulder XRays and this showed bilateral rotator cuff tears Orthopedics was contacted. He did discuss the case on the phone but he did not see the patient. As such we do not regard this is a formal consult. He states that this can be addressed in the outpatient setting. We have also ordered physical therapy and OT evaluation and they have seen her. They recommend home health physical therapy and Occupational Therapy. (6) Acute kidney injury superimposed on CKD Conclusion/Plan: Likely related to CHF exacerbation (cardio-renal syndrome), since creat is improving, however BUN/creat ratio is increasing. Creatinine on admission is 2.0. She is stating that range at 2.1 and as high as up to 2.3. No real change. Avoid nephrotoxins We will continue to monitor renal function with BMP done daily (7) Hypertension Conclusion/Plan: She was kept on her metoprolol succinate 50 mg p.o. daily. This dose was decreased 02/15 due to extreme bradycardia to HR 26 when she is asleep. Lasix is now 40 mg po daily. spironolactone and ARB were also added prior to today which will also help with blood pressure control (8) Bradycardia Conclusion/Plan: She had a heart rate of 26 and sinus rhythm overnight when asleep, was asymptomatic. On decreased beta-joanna dose by half Continue monitoring on telemetry (9) Hypokalemia Conclusion/Plan: Caused by iv diuresis Replaced. Follow BMP daily. (10) Hypomagnesemia Conclusion/Plan: Caused by iv diuresis Replaced. Follow BMP daily. She will also go home on an OTC dose. (11) Elevated troponin Conclusion/Plan: Troponins were 41.2>> 75>> 80. Likely due to CHF exacerbation and not in a pattern of ACS. Patient denied having chest pain. Unknown if she has had CAD eval. Will consider ordering 1 baby ASA daily, except that her extensive, bilateral, circumferential arm bruises have unknown etiology (12) Tobacco abuse Conclusion/Plan: Nicotine patch ordered. (13) Hyperlipidemia Conclusion/Plan: We will hold patient's atorvastatin for now. Patient is complaining of upper extremity weakness which could be worsened by atorvastatin.
--- NOTE | 2022-02-16 16:30 | ADVANCE CARE PLANNING NOTE ---
Advance Care Planning - Planning Encounter Date: 02/16/22 Time: 03:50 Purpose: discuss hospice and change code status Parties in Attendance: alysa Miller, daughter in law, patient and hospitalist Decisional Capacity of the Patient: is part of conversation but gets easily confused with multiple topics, and daughter/POA will sign for her - Diagnosis for Encounter (1) Acute on chronic systolic heart failure Summary: Her last echo here was in 2020 and at [facility] in June 2021, and they showed LVEF of 40 to 45%. On admission her BNP was 5300. Now is 1300. Weight is not being done daily. The daytime hospitalist, who is a service member, performed an echocardiogram February 15. She has a dilated LV, LVH, severe global hypokinesis with EF 20%. Etiology may be hypertensive heart disease versus valvular heart disease since she has severe mitral regurgitation and aortic regurgitation. She did not remember if she is followed by Sales And Marketing Assistant. - Encounter Subjective/Patient's Story: This patient lives in her own home but has one of her granddaughters living with her. It is not a / situation. However daughter, mexvuepq-co-pbo, son, all live nearby and if not just down the road. They will help take care of her. They have noticed a definite decline in cognition and ability to take care of her self over the last few years but a sharp decline this last year. While she still has opinions and they try to honor her wishes, her daughter and power of package delivery driver has taken over more and more with regard to decision-making. In today's discussions about her ejection fraction of 20%, they are worried about down the road. They have not really sat down and discussed the dimensional terminal deterioration but they recognize that this is a "bad thing". They would like to start discussing hospice but are not ready to make that decision yet. They want to see if she can get home and see how she does with her new medications before they formally request a consult. She is still able to feed herself but can no longer dress herself, bathe her self. She is significantly dyspneic on exertion and is now requiring oxygen to go home on. Objective/Medical Story: Patient is an 82-year-old female who presented to the ED with initial complaint of weakness and bruises on both upper arms from the mid biceps to the elbow. She denied being aware of any injury. However while in the ED she was noted to be hypoxic with oxygen saturation dropping to 84% on room air. Work-up included a BNP which was elevated at 5300. She also has +1 lower extremity edema and her left lower extremity and trace in the right. As a result of the above she was presented for admission for further treatment. At bedside she is resting comfortably however she reports mild dyspnea. She denies chest pain, abdominal pain, nausea, vomiting, fever or chills. 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 She was not on an ARB and she was not on spironolactone. Over the course of this admission she has b een diuresed. Is doing much better. Medications have been adjusted so that she is now on losartan, metoprolol, spironolactone and Lasix. She has also been treated for lice. Ejection fraction is 20%. I did discuss the risk of sudden cardiac . Daughter, who is power of package delivery driver, states they have a advance care or healthcare directive and she is DO NOT RESUSCITATE Goals of Care: she would like to still be hospitalized if needed until she is ready for hospice she would like to make sure we have a POLST for DNR status Plan: POLST form filled out Packet for info for Hospice provided. for when she is ready Code Status: Do Not Attempt Resuscitation Time spent on advance care plannin minutes
[2022-02-16] MEDS: ACETAMINOPHEN 325 MG TABLET PO PRN (22:11)
[2022-02-16] MEDS: traZODone 50 MG TABLET PO SCH (22:11)
[2022-02-16] MEDS: IBUPROFEN 400 MG TABLET PO PRN (23:58)
[2022-02-17 05:18] LABS: BASOPHILS # (AUTO) 0.1 10^3/uL (0.0-0.1); BASOPHILS % (AUTO) 0.7 %; EOSINOPHILS # (AUTO) 0.2 10^3/uL (0.0-0.7); HCT - HEMATOCRIT 31.3 % (37.0-47.0); HGB - HEMOGLOBIN 10.2 g/dL (12.0-16.0); LYMPHOCYTES % (AUTO) 13.5 %; MEAN CORPUSCULAR HEMOGLOBIN 28.6 pg (27.0-31.0); MEAN CORPUSCULAR HGB CONC 32.6 g/dL (32.0-36.0); MEAN CORPUSCULAR VOLUME 87.7 fL (81.0-99.0); MEAN PLATELET VOLUME 9.7 fL (7.9-10.8); MONOCYTES # (AUTO) 0.6 10^3/uL (0.0-1.0); MONOCYTES % (AUTO) 8.3 %; NEUTROPHILS # (AUTO) 5.6 10^3/uL (1.5-6.6); NEUTROPHILS % (AUTO) 75.1 %; NRBC ABSOLUTE COUNT (AUTO) 0.02 x10^3/uL; NUCLEATED RED BLOOD CELLS AUTO 0.3 /100WBC; PLT - PLATELET COUNT 216 10^3/uL (130-450); RED BLOOD COUNT 3.57 10^6/uL (4.20-5.40); RED CELL DISTRIBUTION WIDTH 15.1 % (12.0-15.0); WHITE BLOOD COUNT 7.4 x10^3/uL (4.8-10.8)
[2022-02-17 05:26] LABS: CALCIUM 8.7 mg/dL (8.5-10.3); CREATININE 2.4 mg/dL (0.4-1.0); POTASSIUM 4.2 mmol/L (3.5-5.0)
[2022-02-17] MEDS: MAGNESIUM OXIDE 400 MG TABLET PO SCH (07:47)
[2022-02-17] MEDS: POTASSIUM CHLORIDE 20 MEQ TABLET PO SCH (07:47)
[2022-02-17] MEDS: NICOTINE 14 MG PATCH TOP SCH (08:31)
[2022-02-17] MEDS: METOPROLOL SUCCINATE 25 MG TABLET PO SCH (08:31)
[2022-02-17] MEDS: FUROSEMIDE 40 MG TABLET PO SCH (08:31)
[2022-02-17] MEDS: SODIUM CHLORIDE FLUSH 0.9% 10 ML SYRINGE IVP SCH ×2 (08:32→16:48)
[2022-02-17] MEDS: SPIRONOLACTONE 25 MG TABLET PO SCH (11:48)
[2022-02-17] MEDS: LOSARTAN 50 MG TABLET PO SCH (11:48)
[2022-02-17] MEDS: ACETAMINOPHEN 325 MG TABLET PO PRN ×2 (16:48→21:27)
--- NOTE | 2022-02-17 17:39 | PROVIDER PROGRESS NOTE ---
Progress Note February 17. 5:35 PM Continues to be mildly confused. 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 Today's desat test shows her to desaturate to 88% but will only when she marches in place. This patient will desaturate to the mid 70s on room air when she is working with physical therapy and has walked 25 feet or more. She is easily tachypneic. Medication list is unchanged from yesterday. She is on only oral medications at this time Temperature is 36.4. Heart rate 52. Blood pressure 126/80. Respirations 20. 94% on room air. 5 foot 4 inches tall. 59 kg Disheveled, deaf, cooperative elderly lady but fretful. Does not want to be here wants to go home. No JVD in her neck Diminished breath sounds at the bases. I am not hearing crackles. The only juan antonio e she has increased respiratory distress is when she is walking with physical therapy. Regular rate and rhythm with a laterally displaced PMI. No S3. Abdomen is soft, hypoactive bowel sounds, nontender. Last bowel movement was yesterday. Extremities with less edema Labs: Creatinine is bumped up to 2.4 today. She has been between 2 and 2.3. She is on oral Lasix no longer on IV Lasix for the last 48 hours. White cell count 7.4. Has stayed normal during the stay. Hemoglobin 10.2. Relatively stable with normal lab variation. Assessment/Plan (1) Acute on chronic systolic heart failure Impression: Patient's BNP was 5300. Her presentation with mild leg edema, orthopnea and BURGOS were consistent with CHF exacerbation. Her last echo here was in 2020 and at [facility] in June 2021, and they showed LVEF of 40 to 45%. On admission her BNP was 5300. Now is 1300. Weight is not being done daily. The daytime hospitalist, who is a residential energy auditor, performed an echocardiogram February 15. She has a dilated LV, LVH, severe global hypokinesis with EF 20%. Etiology may be hypertensive heart disease versus valvular heart disease since she has severe mitral regurgitation and aortic regurgitation. She did not remember if she is followed by [facility]. She is on Lasix 40 mg p.o. daily after being on IV diuresis. Spironolactone was added daily. Losartan was added. And her metoprolol XL was 50 mg a day and cut back to 25 mg a day to avoid hypotension. She has done well with that and we thought that we would be discharging her 02/16. However, late afternoon hypoxia was identified as much worse than we thought. And we are having to order home oxygen. As such I rescinded her discharge and kept her 1 more night until we can make sure that she can safely be discharged with home oxygen. Low-sodium diet continued.. Daughter Angela and patient's [id number] were at the bedside 02/16. We discussed the ejection fraction of 20%. They are overall looking down the road to a further deterioration in this patient's physical status. They are asking what their options are and when I mentioned hospice they are relieved to see that that is a possibility for them. But they have not discussed this as a family. Please see separate advance care planning note conversation. See oxygen testing below. (2) Lice Conclusion/Plan: Patient has been itching on her body and head. The RN found large lice. She has had the shampoo and body treatment I have asked for input from Melanie Corona, Infection feed mill operator. So far no notes yets. I have explained to the family that the patient's linen and clothes only to be washed in hot water. Bedding such as mattress needs to be taken out and reviewed for possible retained lice. Furniture carpet etc. May need treatment. They mentioned that lice has been a chronic problem within the household for quite some time now. I recommend that she get another treatment in a week. She should follow-up with her primary care provider to get the prescription. (2) Acute respiratory failure with hypoxia Conclusion/Plan: Likely secondary to CHF exacerbation. She also has COPD by clinical evaluation and may have a mild COPD exacerbation as well This morning she was 90% on room air and was marching in place for 7 minutes. We thought that she could go home without oxygen. This afternoon physical therapy did 1 more evaluation before sending her home and her O2 sats dropped into the 70s on room air. As such we are going to have to redo her desat test, and delay her discharge till tomorrow. She continues to have DuoNebs, Pulmicort and Singulair as well to treat hypoxia that is from both congestive heart failure and COPD She was retested this morning. 96% saturation with a pulse of 60 on room air at rest 88% saturation with pulse 100 with room air with ambulation/marching in place 78% saturation with pulse 110 with walking 25 feet and tachypnea on room air 96% on 1 L with a heart rate of 80 at rest 90% with 1 L with ambulation of marching in place, heart rate 100 92% with 2 L with marching in place ambulation and walking 20 feet as such she will need 2 L with exertion. She does not need oxygen at rest (3) COPD with exacerbation Conclusion/Plan: She was a lifelong smoker who quit 2-3 weeks ago. A Nicotine patch was still required. Will also increase management for her underlying COPD with duo nebs, Pulmicort nebs, Singulair at at bedtime (4)PVD Conclusion/Plan: Upon presentation, her VS were noted to have unequal BPs in both arms: L 150 syst, R 90 syst. She underwent bilateral arterial Doppler and this showed normal flow in the left arm and blunted flow in the right arm. The radiologist recommended CTA to evaluate for right subclavian artery occl. Her creatinine is still greater than 2.0, contrast load is currently contraindicated. This will be addressed in the outpatient setting. (5) Rotator cuff tear arthropathy of both shoulders (M75.101) She presented complaining of bilateral arm weakness and we found her to have bilateral, circumferential upper arm ecchymoses. The patient cannot remember how long she had arm weakness and has no idea how she got these large, circumferenti al nearly symmetrical ecchymoses in the upper arms bilaterally. She says she "woke up 1 day with that". She denies having any trauma, does not think that the grandchildren who live with her might have done this. She denies any trauma like falling on both sides or on her neck. She describes weakness and cannot lift her arms but does not say that the shoulders or upper arms are painful. We ordered B shoulder XRays and this showed bilateral rotator cuff tears Orthopedics was contacted. He did discuss the case on the phone but he did not see the patient. As such we do not regard this is a formal consult. He states that this can be addressed in the outpatient setting. We have also ordered physical therapy and OT evaluation and they have seen her. They recommend home health physical therapy and Occupational Therapy. (6) Acute kidney injury superimposed on CKD Conclusion/Plan: Likely related to CHF exacerbation (cardio-renal syndrome), since creat is improving, however BUN/creat ratio is increasing. Creatinine on admission is 2.0. She is stating that range at 2.1 and as high as up to 2.3. Today she is up to 2.4. Avoid nephrotoxins We will continue to monitor renal function with BMP done daily but I will give her a 500 cc fluid bolus. No change in diuretics. (7) Hypertension Conclusion/Plan: She was kept on her metoprolol succinate 50 mg p.o. daily. This dose was decreased 02/15 due to extreme bradycardia to HR 26 when she is asleep. Lasix is now 40 mg po daily. spironolactone and ARB were also added prior to today which will also help with blood pressure control (8) Bradycardia Conclusion/Plan: She had a heart rate of 26 and sinus rhythm overnight when asleep, was asymptomatic. On decreased beta-joanna dose by half Continue monitoring on telemetry (9) Hypokalemia Conclusion/Plan: Caused by iv diuresis Replaced. Follow BMP daily. (10) Hypomagnesemia Conclusion/Plan: Caused by iv diuresis Replaced. Follow BMP daily. She will also go home on an OTC dose. (11) Elevated troponin Conclusion/Plan: Troponins were 41.2>> 75>> 80. Likely due to CHF exacerbation and not in a pattern of ACS. Patient denied having chest pain. Unknown if she has had CAD eval. Will consider ordering 1 baby ASA daily, except that her extensive, bilateral, circumferential arm bruises have unknown etiology (12) Tobacco abuse Conclusion/Plan: Nicotine patch ordered. (13) Hyperlipidemia Conclusion/Plan: We will hold patient's atorvastatin for now. Patient is complaining of upper extremity weakness which could be worsened by atorvastatin.
[2022-02-17] MEDS ORDERED: SODIUM CHLORIDE 0.9% 500 ML IV ONE (18:04)
[2022-02-17] MEDS: traZODone 50 MG TABLET PO SCH (21:27)
[2022-02-18] MEDS: SODIUM CHLORIDE FLUSH 0.9% 10 ML SYRINGE IVP SCH ×2 (00:12→08:20)
[2022-02-18] MEDS: POTASSIUM CHLORIDE 20 MEQ TABLET PO SCH (07:37)
[2022-02-18] MEDS: MAGNESIUM OXIDE 400 MG TABLET PO SCH (07:37)
[2022-02-18] MEDS: METOPROLOL SUCCINATE 25 MG TABLET PO SCH (08:20)
[2022-02-18] MEDS: NICOTINE 14 MG PATCH TOP SCH (08:20)
[2022-02-18] MEDS: FUROSEMIDE 40 MG TABLET PO SCH (08:20)
[2022-02-18] MEDS: LOSARTAN 50 MG TABLET PO SCH (12:02)
[2022-02-18] MEDS: SPIRONOLACTONE 25 MG TABLET PO SCH (12:02)
[2022-02-18 12:17] VITALS: BP 156/61
== END 2022-02-18 15:22 | disposition home health service (06) | DRG 291 ==
LOC: EDUNIT# → ED 09:41 → MS2 21:10
PROVIDERS: ADMIT Internal Medicine; ATTEND Specialist
DX: I11.0 Hypertensive heart disease with heart failure (principal); I50.9 Heart failure, unspecified; R09.02 Hypoxemia; R60.0 Localized edema; S80.821A Blister (nonthermal), right lower leg, initial encounter; S40.022A Contusion of left upper arm, initial encounter; S40.021A Contusion of right upper arm, initial encounter; X58.XXXA Exposure to other specified factors, initial encounter; F17.200 Nicotine dependence, unspecified, uncomplicated; Z20.822 Contact with and (suspected) exposure to COVID-19; I13.0 Hypertensive heart and chronic kidney disease with heart failure and stage 1 through stage 4 chronic kidney disease, or unspecified chronic kidney disease; I50.23 Acute on chronic systolic (congestive) heart failure; J96.01 Acute respiratory failure with hypoxia; J44.1 Chronic obstructive pulmonary disease with (acute) exacerbation; N17.9 Acute kidney failure, unspecified; N18.9 Chronic kidney disease, unspecified; F17.210 Nicotine dependence, cigarettes, uncomplicated; I73.9 Peripheral vascular disease, unspecified; M75.102 Unspecified rotator cuff tear or rupture of left shoulder, not specified as traumatic; M75.101 Unspecified rotator cuff tear or rupture of right shoulder, not specified as traumatic; B85.4 Mixed pediculosis and phthiriasis; R00.1 Bradycardia, unspecified; E87.6 Hypokalemia; E83.42 Hypomagnesemia; R77.8 Other specified abnormalities of plasma proteins; E78.5 Hyperlipidemia, unspecified; R01.1 Cardiac murmur, unspecified; R53.1 Weakness; I42.0 Dilated cardiomyopathy; R58 Hemorrhage, not elsewhere classified; H91.93 Unspecified hearing loss, bilateral; Z66 Do not resuscitate
CPT/HCPCS: 36415; 71045; 73030; 73060; 80048; 80053; 83690; 83735; 83880; 84484; 85025; 87635; 93005; 93930; 94640; 94664; 94761; 96365; 96375; 96376; 97110; 97162; 97165; 97530; 99284; 99285; A9180; A9270